=== PATIENT | male | born 1970 | race African-American/Black ===

== ENCOUNTER 2016-03-19 08:28 | Inpatient (IN) | payer OTHER ==
--- NOTE | 2016-03-19 12:44 | HP ---
CIWA Score - CIWA Score Nausea/Vomitin Muscle Tremors: 3 Anxiety: 3 Agitation: 3 Paroxysmal Sweats: 1-Minimal Palms Moist Orientation: 0-Oriented Tacttile Disturbances: 2-Mild Itch/Numbness/Burn Auditory Disturbances: 2-Mild Harshness/Frighten Visual Disturbances: 2-Mild Sensitivity Headache: 2-Mild CIWA-Ar Total Score: 21 Admission ROS BHS - HPI Chief Complaint: I NEED HELP TO STOP DRINKING ALCOHOL AND COCAINE,WITHDRAWAL SYMPTOM,LAST DETOX Allergies/Adverse Reactions: Allergies Allergy/AdvReac Type Severity Reaction Status Date / Time Sweet Potato Allergy Severe Hives Verified 03/19/16 11:27 No Known Drug Allergies Allergy Verified 03/19/16 11:27 squash Allergy Severe Hives Uncoded 03/19/16 11:27 History of Present Illness: I NEED HELP TO STOP DRINKING ALCOHOL AND COCAINE,WITHDRAWAL SYMPTOM,LAST DETOX [facility] 01/11/16 TO 01/14/16 REHAB FROM 01/23/16 TO 02/08/16 [facility] HAD PROBLEM WITH RIGHT EYE WITH RENESS FOR 2 DAYS HAD PROBLEM WITH RIGHT HARRIS [address] IN [facility] SCHIZOAFFECTIVE DISORDER NO MED HYPERTENSION HYPERCHOLESTROLEMIA NICOTINE DEPENDENCE LONGEST PERIOD OF SOBRIETY 5 YEARS Exam Limitations: No Limitations - Ebola screening Have you traveled outside of the country in the last 21 days: No Have you been sick,other than usual withdrawal symptoms: No - Review of Systems Constitutional: Loss of Appetite, Malaise, Night Sweats, Changes in sleep, Weakness, Unintentional Wgt. Loss EENT: reports: Nose Congestion, Other (RDNESS OF RIGHT EYE FOR 2 DAYS) Respiratory: reports: No Symptoms reported Cardiac: reports: No Symptoms Reported GI: reports: Diarrhea, Nausea, Vomiting, Abdominal cramping : reports: No Symptoms Reported Musculoskeletal: reports: Back Pain, Muscle Pain Integumentary: reports: Dryness Neuro: reports: Headache, Tremors Endocrine: reports: No Symptoms Reported Hematology: reports: No Symptoms Reported Psychiatric: reports: other (SCHIZOAFFECTIVE DISORDER) Patient History - Patient Medical History Hx Anemia: No Hx Asthma: Yes Hx Chronic Obstructive Pulmonary Disease (COPD): No Hx Cancer: No Hx Cardiac Disorders: No Hx Congestive Heart Failure: No Hx Hypertension: Yes (on meds.) Hx Hypercholesterolemia: Yes (ON MED) Hx Pacemaker: No HX Cerebrovascular Accident: No Hx Seizures: No Hx Dementia: No Hx Diabetes: No Hx Gastrointestinal Disorders: No Hx Liver Disease: No Hx Genitourinary Disorders: No Hx Sexually Transmitted Disorders: No Hx Renal Disease (ESRD): No Hx Thyroid Disease: No Hx Human Immunodeficiency Virus (HIV): No (LAST 01/23 NEGATIVE ) Hx Hepatitis C: No Hx Depression: Yes (NO MED) Hx Suicide Attempt: No Hx Bipolar Disorder: Yes (NO MED) Hx Schizophrenia: No Other Medical History: SCHIZOAFFECTIVE DISORDER - Patient Surgical History Past Surgical History: Yes Hx Neurologic Surgery: No Hx Cataract Extraction: No Hx Cardiac Surgery: No Hx Lung Surgery: No Hx Breast Surgery: No Hx Breast Biopsy: No Hx Abdominal Surgery: No Hx Appendectomy: No Hx Cholecystectomy: No Hx Genitourinary Surgery: No Hx Section: No Hx Orthopedic Surgery: Yes (left elbow and right wrist) Other Surgical History: sx to left elbow IN 1985,FX OF RIGHT WRIST WITH DEFORMITY Anesthesia Reaction: No - PPD History Previous Implant?: Yes Documented Results: Negative w/proof Implanted On Prior [facility] Admission?: Yes Date: 01/13/16 Results: 0 mm PPD to be Administered?: No - Smoking Cessation Smoking history: Current every day smoker Have you smoked in the past 12 months: Yes Aproximately how many cigarettes per day: 8 Cigars Per Day: 0 Hx Chewing Tobacco Use: No Initiated information on smoking cessation: Yes 'Breaking Loose' booklet given: 03/19/16 - Substance & Tx. History Hx Alcohol Use: Yes Hx Substance Use: Yes Substance Use Type: Alcohol, Cocaine Hx Substance Use Treatment: Yes ([facility] 01/11/16 TO 01/14/16) - Substances Abused Alcohol Route: Oral Frequency: Daily Amount used: 1 liter vodka Age of first use: 13 Date of Last Use: 03/19/16 Crack Route: Smoking Frequency: 1-2 times per week Amount used: $50 Age of first use: 13 Date of Last Use: 03/17/16 Family Disease History - Family Disease History Family Disease History: CA: Father (alcohol), Respiratory: Brother (asthma, drugs and alcohol), Sister, Daughter, Other: Father, Brother Admission Physical Exam BHS - Vital Signs Vital Signs: Vital Signs - 24 hr 03/19/16 10:49 Temperature 96.3 F L Pulse Rate 83 Respiratory 20 Rate Blood Pressure 147/92 - Physical General Appearance: Yes: Moderate Distress, Irritable, Sweating, Anxious HEENTM: Yes: Nasal Congestion, Rhinorrhea, Other (REDNESS OF RIGHT EYE , CONJUNCTIVITIS VISION [place], MOVEMENT OF EYE BALL NO LIMITATION) Respiratory: Yes: Within Normal Limits Neck: Yes: Within Normal Limits Breast: Yes: Within Normal Limits Cardiology: Yes: Within Normal Limits, Regular Rhythm, Regular Rate, S1, S2 Abdominal: Yes: Within Normal Limits, Normal Bowel Sounds, Non Tender, Flat, Soft Genitourinary: Yes: Within Normal Limits Back: Yes: Muscle Spasm Musculoskeletal: Yes: Back pain, Muscle Pain Extremities: Yes: Tremors, Other (DEORMITY OF RIGHT WRIST) 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, Fully Oriented, Alert, Motor Strength 5/5 Integumentary: Yes: Dry Lymphatic: Yes: Within Normal Limits - Diagnostic (1) Alcohol dependence with uncomplicated withdrawal Current Visit: No Status: Acute (2) Cocaine dependence, uncomplicated Current Visit: No Status: Acute (3) Nicotine dependence Current Visit: No Status: Acute Qualifiers: Nicotine product type: cigarettes Substance use status: uncomplicated Qualified Code(s): F17.210 - Nicotine dependence, cigarettes, uncomplicated (4) Asthma Current Visit: No Status: Chronic (5) Essential hypertension Current Visit: No Status: Chronic (6) Hypercholesterolemia Current Visit: No Status: Chronic (7) Schizoaffective disorder Current Visit: No Status: Chronic Qualifiers: Schizoaffective disorder type: bipolar Qualified Code(s): F25.0 - Schizoaffective disorder, bipolar type (8) Deformity of right wrist Current Visit: Yes Status: Acute (9) Conjunctivitis of right eye Current Visit: Yes Status: Acute Cleared for Admission [facility] - Detox or Rehab [facility] Level of Care: Medically Managed Detox Regimen/Protocol: Librium [facility] Breath Alcohol Content Breath Alcohol Content: 0.037 Urine Drug Screen - Results Drug Screen Negative: No Urine Drug Screen Results: THC-Marijuana, [place]-Cocaine, BZO-Benzodiazepines
[2016-03-19] MEDS ORDERED: MENTHOL/PHENOL 1 EACH UD MM PRN (13:07)
[2016-03-19] MEDS ORDERED: MAGNESIUM HYDROX 2400MG/30ML ORAL SUSPENSION 30 ML CUP PO PRN (13:07)
[2016-03-19] MEDS ORDERED: IBUPROFEN 400 MG TABLET (FP) PO PRN (13:07)
[2016-03-19] MEDS ORDERED: hydrOXYzine PAMOATE 50 MG CAPSULE (FP) PO PRN (13:07)
[2016-03-19] MEDS ORDERED: MAGNESIUM CITRATE 300 ML BOTTLE PO PRN (13:07)
[2016-03-19] MEDS ORDERED: P-EPHED 60MG/TRIPROLIDI 2.5MG TABLET PO PRN (13:07)
[2016-03-19] MEDS ORDERED: LOPERAMIDE HCL 2 MG CAPSULE PO PRN (13:07)
[2016-03-19] MEDS ORDERED: MAG HYDROX/AL HYDROX/SIMETH 30 ML UNIT-DOSE CUP PO PRN (13:07)
[2016-03-19] MEDS ORDERED: guaiFENesin/D-METHORPHAN HB 10 ML UNIT-DOSE CUPS PO PRN (13:07)
[2016-03-19] MEDS ORDERED: ACETAMINOPHEN 325 MG TABLET (FP) PO PRN (13:07)
[2016-03-19] MEDS ORDERED: diphenhydrAMINE HCL 50 MG CAPSULE PO PRN (13:07)
[2016-03-19] MEDS ORDERED: chlordiazePOXIDE HCL 25 MG CAPSULE PO PRN (13:07)
[2016-03-19] MEDS ORDERED: ALBUTEROL SO4 6.7 GM HFA INHALER IH PRN (13:10)
[2016-03-19] MEDS ORDERED: chlordiazePOXIDE HCL 25 MG CAPSULE PO ONE (13:45)
[2016-03-19] MEDS: NEOMYCIN/POLYMYX/HC OPHTHALMIC SUSPENSION 7.5 ML BOTTLE OD SCH ×3 (14:03→22:13)
[2016-03-19 15:34] LABS: URINE APPEARANCE CLEAR; URINE BILIRUBIN NEGATIVE (NEGATIVE); URINE BLOOD NEGATIVE (NEGATIVE); URINE COLOR YELLOW; URINE GLUCOSE (UA) NEGATIVE (NEGATIVE); URINE KETONE TRACE (NEGATIVE); URINE LEUK ESTERASE NEGATIVE (NEGATIVE); URINE NITRITE NEGATIVE (NEGATIVE); URINE PROTEIN NEGATIVE (NEGATIVE); URINE UROBILINOGEN NEGATIVE E.U./dl (0.2-1.0)
--- NOTE | 2016-03-19 16:03 | CONSULT ---
[facility] Psychiatric Consult - Data Date of interview: 03/19/16 Admission source: [facility] Identifying data: This is 46 years old female with history of Schizoaffective disorder,, intoxicated with Crack, Alcohol and Cannabis, Benzo and Nicotine Substance Abuse History: - Smoking Cessation. Smoking history: Current every day smoker. Have you smoked in the past 12 months: Yes. Aproximately how many cigarettes per day: 8. Cigars Per Day: 0. Hx Chewing Tobacco Use: No. Initiated information on smoking cessation: Yes. 'Breaking Loose' booklet given : 03/19/16. - Substance & Tx. History. Hx Alcohol Use: Yes. Hx Substance Use : Yes. Substance Use Type: Alcohol, Cocaine. Hx Substance Use Treatment: Yes ( [facility] 01/11/16 TO 01/14/16). - Substances Abused. Alcohol. Route: Oral. Frequency: Daily. Amount used: 1 liter vodka. Age of first use: 13. Date of Last Use: 03/19/16. Crack. Route: Smoking. Frequency: 1-2 times per week. Amount used: $50. Age of first use: 13. Date of Last Use: 03/17/16 Medical History: Suncope history, Sepsis history, Anemia history, HTN, Hypercholesaterolemia Psychiatric History: Patient reports to carry Schizoaffective disorder, Bipolar type, , reports taking prior to admission: Zyoprexa 10mg po qhs. Reports unclear past psychiatric hospitalization history Physical/Sexual Abuse/Trauma History: Denies Additional Comment: Zyoprexa 10mg po qhs Mental Status Exam - Mental Status Exam Alert and Oriented to: Person Cognitive Function: Fair Patient Appearance: Unkempt Mood: Sad Affect: Flat Patient Behavior: Sedated Speech Pattern: Delayed Voice Loudness: Mildly Soft/Quiet Thought Process: Circumstantial Thought Disorder: Being Controlled Hallucinations: Denies Suicidal Ideation: Denies Homicidal Ideation: Denies Insight/Judgement: Fair Sleep: Difficulty falling asleep Appetite: Weight gain Muscle strength/Tone: Mild Hypotonicity Gait/Station: Shuffling Additional Comments: Zyoprexa 10mg po qhs Psychiatric Findings - Problem List ([place] 1, 2,3) (1) Alcohol dependence Current Visit: No Status: Acute (2) Alcohol dependence with uncomplicated withdrawal Current Visit: No Status: Acute (3) Cocaine dependence, uncomplicated Current Visit: No Status: Acute (4) Nicotine dependence Current Visit: No Status: Acute Qualifiers: Nicotine product type: cigarettes Substance use status: uncomplicated Qualified Code(s): F17.210 - Nicotine dependence, cigarettes, uncomplicated (5) Opioid dependence with withdrawal Current Visit: No Status: Acute (6) Schizoaffective disorder, bipolar type Current Visit: No Status: Acute (7) Schizoaffective disorder Current Visit: No Status: Chronic Qualifiers: Schizoaffective disorder type: bipolar Qualified Code(s): F25.0 - Schizoaffective disorder, bipolar type
[2016-03-19] MEDS: chlordiazePOXIDE HCL 25 MG CAPSULE PO SCH ×2 (18:21→22:13)
[2016-03-19] MEDS: THIAMINE HCL 100 MG TABLET (FP) PO SCH (22:13)
[2016-03-19] MEDS: ROSUVASTATIN CA 5 MG TABLET (FP) PO SCH (22:13)
[2016-03-19] MEDS: OLANZapine 10 MG TABLET PO SCH (22:13)
[2016-03-20] MEDS: chlordiazePOXIDE HCL 25 MG CAPSULE PO SCH ×4 (05:54→22:13)
[2016-03-20] MEDS: NEOMYCIN/POLYMYX/HC OPHTHALMIC SUSPENSION 7.5 ML BOTTLE OD SCH ×5 (07:24→22:25)
[2016-03-20 10:05] LABS: MCH 24.1 pg (25.7-33.7); MCHC 32.4 g/dl (32.0-35.9); MEAN CELL VOLUME 74.2 fl (80-96); MEAN PLT VOLUME 6.9 fl (7.5-11.1); PLATELET COUNT 477 K/MM3 (134-434); RDW 18.2 % (11.9-15.9); WHITE BLOOD COUNT 6.2 K/mm3 (4.0-10.0)
[2016-03-20] MEDS: FLUTICASONE PROP 0.05% 16 GM NASAL SPRAY NS SCH (10:08)
[2016-03-20] MEDS: ATENOLOL 25 MG TABLET (FP) PO SCH (10:08)
[2016-03-20] MEDS: PRENATAL VITAMINS W/ FOLIC ACID TABLET (FP) PO SCH (10:08)
[2016-03-20] MEDS: amLODIPine BESYLATE 10 MG TABLET (FP) PO SCH (10:08)
[2016-03-20] MEDS: ACLIDINIUM BROMIDE 400 MCG/INH AERO.POWD IH SCH ×3 (10:09→22:26)
[2016-03-20 10:11] LABS: ALBUMIN 3.7 g/dl (3.4-5.0); ANION GAP 10 (8-16); CALCIUM 8.9 mg/dL (8.5-10.1); CO2 26 mmol/L (21-32); GLUCOSE,RANDOM 110 mg/dL (74-106)
[2016-03-20 10:16] LABS: ALK PHOS 74 U/L (45-117); BILIRUBIN,TOTAL 0.3 mg/dL (0.2-1.0); CREATININE 0.8 mg/dL (0.7-1.3); SGOT/AST 29 U/L (15-37); SGPT/ALT 25 U/L (12-78); TOT PROT 7.5 g/dl (6.4-8.2)
--- NOTE | 2016-03-20 10:30 | PN ---
S CIWA - CIWA Score Nausea/Vomitin-Mild Nausea/No Vomiting Muscle Tremors: 4-Moderate,w/Arms Extend Anxiety: 3 Agitation: 3 Paroxysmal Sweats: 3 Orientation: 0-Oriented Tacttile Disturbances: 0-None Auditory Disturbances: 0-None Visual Disturbances: 0-None Headache: 0-None Present CIWA-Ar Total Score: 14 BHS Progress Note (SOAP) Subjective: anxiety,tremors,sweating,interrupted sleep,restless Objective: 03/20/16 10:28 Vital Signs - 8 hr 03/20/16 03/20/16 03/20/16 03:30 06:23 10:07 Temperature 96.3 F L 98.2 F Pulse Rate 82 87 Respiratory 18 18 18 Rate Blood Pressure 142/97 141/94 Laboratory Tests 03/19/16 03/20/16 03/20/16 13:10 06:30 06:30 WBC 6.2 D RBC 4.59 Hgb 11.1 L Hct 34.1 L MCV 74.2 L MCHC 32.4 RDW 18.2 H D Plt Count 477 H D MPV 6.9 L Sodium 143 Potassium 3.5 D Chloride 107 Carbon Dioxide 26 Anion Gap 10 BUN 5 L D Creatinine 0.8 D Creat Clearance w eGFR > 60 Random Glucose 110 H Calcium 8.9 Total Bilirubin 0.3 D AST 29 ALT 25 D Alkaline Phosphatase 74 D Total Protein 7.5 Albumin 3.7 Urine Color Yellow Urine Appearance Clear Urine pH 6.0 Ur Specific [place] 1.027 Urine Protein Negative Urine Glucose (UA) Negative Urine Ketones Trace H Urine Blood Negative Urine Nitrite Negative Urine Bilirubin Negative Urine Urobilinogen Negative Ur Leukocyte Esterase Negative labs noted Assessment: 03/20/16 10:29 withdrawal sx. Plan: continue detox
--- NOTE | 2016-03-20 11:13 | EKG ---
Test Reason : Blood Pressure : / mmHG Vent. Rate : 077 BPM Atrial Rate : 077 BPM P-R Int : 132 ms QRS Dur : 094 ms QT Int : 426 ms P-R-T Axes : 073 062 057 degrees QTc Int : 482 ms NORMAL SINUS RHYTHM PROLONGED QT ABNORMAL ECG WHEN COMPARED WITH ECG OF 26-JAN-2016 16:08, QT HAS LENGTHENED Confirmed by LIBIA MURCIA MD ([id number]) on 03/20/2016 11:13:21 AM Referred By: Pepe Vega Confirmed By:LIBIA MURCIA MD
[2016-03-20] MEDS: NICOTINE POLACRILEX 2 MG GUM BC PRN (15:31)
[2016-03-20] MEDS: OLANZapine 10 MG TABLET PO SCH (22:13)
[2016-03-20] MEDS: ROSUVASTATIN CA 5 MG TABLET (FP) PO SCH (22:13)
[2016-03-20] MEDS: THIAMINE HCL 100 MG TABLET (FP) PO SCH (22:13)
[2016-03-21] MEDS: chlordiazePOXIDE HCL 25 MG CAPSULE PO SCH ×2 (06:04→10:17)
[2016-03-21] MEDS: NEOMYCIN/POLYMYX/HC OPHTHALMIC SUSPENSION 7.5 ML BOTTLE OD SCH ×5 (06:05→22:43)
[2016-03-21] MEDS: NICOTINE POLACRILEX 2 MG GUM BC PRN ×4 (06:06→17:45)
--- NOTE | 2016-03-21 10:05 | PN ---
[facility] CIWA - CIWA Score Nausea/Vomitin-Mild Nausea/No Vomiting Muscle Tremors: 4-Moderate,w/Arms Extend Anxiety: 4-Mod. Anxious/Guarded Agitation: 4-Moderately Restless Paroxysmal Sweats: No Perspiration Orientation: 0-Oriented Tacttile Disturbances: 2-Mild Itch/Numbness/Burn Auditory Disturbances: 0-None Visual Disturbances: 0-None Headache: 3-Moderate CIWA-Ar Total Score: 18 BHS Progress Note (SOAP) Subjective: Restlessness, interrupted sleep, anxiety, tremors Objective: Vital Signs Temperature 98.1 F 03/21/16 09:52 Pulse Rate 75 03/21/16 09:52 Respiratory Rate 18 03/21/16 09:52 Blood Pressure 131/84 03/21/16 09:52 O2 Sat by Pulse Oximetry (%) Laboratory Last Values WBC 6.2 K/mm3 (4.0-10.0) D 03/20/16 06:30 RBC 4.59 M/mm3 (4.00-5.60) 03/20/16 06:30 Hgb 11.1 GM/dL (11.7-16.9) L 03/20/16 06:30 Hct 34.1 % (35.4-49) L 03/20/16 06:30 MCV 74.2 fl (80-96) L 03/20/16 06:30 MCHC 32.4 g/dl (32.0-35.9) 03/20/16 06:30 RDW 18.2 % (11.9-15.9) H D 03/20/16 06:30 Plt Count 477 K/MM3 (134-434) H D 03/20/16 06:30 MPV 6.9 fl (7.5-11.1) L 03/20/16 06:30 Sodium 143 mmol/L (136-145) 03/20/16 06:30 Potassium 3.5 mmol/L (3.5-5.1) D 03/20/16 06:30 Chloride 107 mmol/L (98-107) 03/20/16 06:30 Carbon Dioxide 26 mmol/L (21-32) 03/20/16 06:30 Anion Gap 10 (8-16) 03/20/16 06:30 BUN 5 mg/dL (7-18) L D 03/20/16 06:30 Creatinine 0.8 mg/dL (0.7-1.3) D 03/20/16 06:30 Creat Clearance w eGFR > 60 (>60) 03/20/16 06:30 Random Glucose 110 mg/dL (74-106) H 03/20/16 06:30 Calcium 8.9 mg/dL (8.5-10.1) 03/20/16 06:30 Total Bilirubin 0.3 mg/dL (0.2-1.0) D 03/20/16 06:30 AST 29 U/L (15-37) 03/20/16 06:30 ALT 25 U/L (12-78) D 03/20/16 06:30 Alkaline Phosphatase 74 U/L (45-117) D 03/20/16 06:30 Total Protein 7.5 g/dl (6.4-8.2) 03/20/16 06:30 Albumin 3.7 g/dl (3.4-5.0) 03/20/16 06:30 Urine Color Yellow 03/19/16 13:10 Urine Appearance Clear 03/19/16 13:10 Urine pH 6.0 (5.0-8.0) 03/19/16 13:10 Ur Specific [place] 1.027 (1.001-1.035) 03/19/16 13:10 Urine Protein Negative (NEGATIVE) 03/19/16 13:10 Urine Glucose (UA) Negative (NEGATIVE) 03/19/16 13:10 Urine Ketones Trace (NEGATIVE) H 03/19/16 13:10 Urine Blood Negative (NEGATIVE) 03/19/16 13:10 Urine Nitrite Negative (NEGATIVE) 03/19/16 13:10 Urine Bilirubin Negative (NEGATIVE) 03/19/16 13:10 Urine Urobilinogen Negative E.U./dl (0.2-1.0) 03/19/16 13:10 Ur Leukocyte Esterase Negative (NEGATIVE) 03/19/16 13:10 RPR Titer Nonreactive (NONREACTIVE) 03/20/16 06:30 labs noted Assessment: 03/21/16 10:04 withdrawal symptoms Plan: Patient encouraged to request prn medications to alleviate symptoms. Satisfactory Course, Continue Detox
[2016-03-21] MEDS: FLUTICASONE PROP 0.05% 16 GM NASAL SPRAY NS SCH (10:17)
[2016-03-21] MEDS: ATENOLOL 25 MG TABLET (FP) PO SCH (10:17)
[2016-03-21] MEDS: amLODIPine BESYLATE 10 MG TABLET (FP) PO SCH (10:17)
[2016-03-21] MEDS: ACLIDINIUM BROMIDE 400 MCG/INH AERO.POWD IH SCH ×2 (10:17→22:41)
[2016-03-21] MEDS: PRENATAL VITAMINS W/ FOLIC ACID TABLET (FP) PO SCH (10:17)
[2016-03-21] MEDS: chlordiazePOXIDE 5 MG CAPSULE PO SCH ×2 (17:18→22:41)
[2016-03-21] MEDS: THIAMINE HCL 100 MG TABLET (FP) PO SCH (22:41)
[2016-03-21] MEDS: ROSUVASTATIN CA 5 MG TABLET (FP) PO SCH (22:41)
[2016-03-21] MEDS: OLANZapine 10 MG TABLET PO SCH (22:41)
[2016-03-22] MEDS: chlordiazePOXIDE 5 MG CAPSULE PO SCH ×2 (05:39→10:09)
[2016-03-22] MEDS: NEOMYCIN/POLYMYX/HC OPHTHALMIC SUSPENSION 7.5 ML BOTTLE OD SCH ×2 (05:40→10:09)
[2016-03-22 09:23] VITALS: BP 129/85; PULSE 85; TEMP 97.4
[2016-03-22] MEDS: ATENOLOL 25 MG TABLET (FP) PO SCH (10:09)
[2016-03-22] MEDS: PRENATAL VITAMINS W/ FOLIC ACID TABLET (FP) PO SCH (10:09)
[2016-03-22] MEDS: NICOTINE POLACRILEX 2 MG GUM BC PRN (10:09)
[2016-03-22] MEDS: FLUTICASONE PROP 0.05% 16 GM NASAL SPRAY NS SCH (10:09)
[2016-03-22] MEDS: amLODIPine BESYLATE 10 MG TABLET (FP) PO SCH (10:09)
[2016-03-22] MEDS: ACLIDINIUM BROMIDE 400 MCG/INH AERO.POWD IH SCH (10:09)
--- NOTE | 2016-03-22 15:34 | DS ---
[facility] Detox Discharge Summary Admission Date: 03/19/16 Discharge Date: 03/22/16 - History Present History: Alcohol Dependence Pertinent Past History: Asthma HTN HLD - Physical Exam Results Vital Signs: Vital Signs Temperature 97.4 F L 03/22/16 09:22 Pulse Rate 85 03/22/16 09:22 Respiratory Rate 18 03/22/16 09:22 Blood Pressure 129/85 03/22/16 09:22 O2 Sat by Pulse Oximetry (%) Pertinent Admission Physical Exam Findings: Withdrawal symptoms Laboratory Tests 03/19/16 03/20/16 03/20/16 13:10 06:30 06:30 WBC 6.2 D RBC 4.59 Hgb 11.1 L Hct 34.1 L MCV 74.2 L MCHC 32.4 RDW 18.2 H D Plt Count 477 H D MPV 6.9 L Sodium 143 Potassium 3.5 D Chloride 107 Carbon Dioxide 26 Anion Gap 10 BUN 5 L D Creatinine 0.8 D Creat Clearance w eGFR > 60 Random Glucose 110 H Calcium 8.9 Total Bilirubin 0.3 D AST 29 ALT 25 D Alkaline Phosphatase 74 D Total Protein 7.5 Albumin 3.7 Urine Color Yellow Urine Appearance Clear Urine pH 6.0 Ur Specific [place] 1.027 Urine Protein Negative Urine Glucose (UA) Negative Urine Ketones Trace H Urine Blood Negative Urine Nitrite Negative Urine Bilirubin Negative Urine Urobilinogen Negative Ur Leukocyte Esterase Negative RPR Titer 03/20/16 06:30 WBC RBC Hgb Hct MCV MCHC RDW Plt Count MPV Sodium Potassium Chloride Carbon Dioxide Anion Gap BUN Creatinine Creat Clearance w eGFR Random Glucose Calcium Total Bilirubin AST ALT Alkaline Phosphatase Total Protein Albumin Urine Color Urine Appearance Urine pH Ur Specific [place] Urine Protein Urine Glucose (UA) Urine Ketones Urine Blood Urine Nitrite Urine Bilirubin Urine Urobilinogen Ur Leukocyte Esterase RPR Titer Nonreactive Labs noted - Medication Discharge Medications: Ambulatory Orders Albuterol Sulfate Inhaler - [Ventolin HFA Inhaler -] 2 inh IH Q4H PRN #1 inhaler 02/08/16 Amlodipine Besylate [Norvasc -] 10 mg PO DAILY #30 tablet 02/08/16 Atenolol [Tenormin -] 25 mg PO DAILY #30 tablet 02/08/16 Fluticasone Prop 0.05% Nasal [Flonase -] 1 spray NS DAILY #1 bot 02/08/16 Olanzapine [Zyprexa -] 15 mg PO HS #30 tablet 02/08/16 Rosuvastatin [Crestor -] 5 mg PO HS #30 tablet 02/08/16 Tiotropium [place] [Spiriva] 18 mcg IH AM #1 inh 02/08/16 Olanzapine [ZyPREXA -] 10 mg PO HS #30 tablet 03/19/16 - Diagnosis (1) Alcohol dependence with uncomplicated withdrawal Status: Acute (2) Nicotine dependence Status: Chronic Qualifiers: Nicotine product type: cigarettes Substance use status: uncomplicated Qualified Code(s): F17.210 - Nicotine dependence, cigarettes, uncomplicated (3) Schizoaffective disorder, bipolar type Status: Chronic (4) Asthma Status: Chronic (5) Essential hypertension Status: Chronic (6) Hypercholesterolemia Status: Chronic - AMA Did Patient Leave Against Medical Advice: Yes
[2016-03-22] MEDS ORDERED: chlordiazePOXIDE HCL 10 MG CAPSULE PO SCH (17:00)
== END 2016-03-22 12:35 | disposition left against medical advice (07) | DRG 894 ==
LOC: YASAS 08:28 → Y3N 11:53
PROVIDERS: ADMIT Internal Medicine; ATTEND Internal Medicine
PROC: HZ2ZZZZ Detoxification Services for Substance Abuse Treatment (ICD-10-PCS; principal; 2016-03-22)
DX: F11.23 Opioid dependence with withdrawal (principal); F14.20 Cocaine dependence, uncomplicated; F10.230 Alcohol dependence with withdrawal, uncomplicated; F17.210 Nicotine dependence, cigarettes, uncomplicated; F25.0 Schizoaffective disorder, bipolar type; I10 Essential (primary) hypertension; E78.00 Pure hypercholesterolemia, unspecified; J45.909 Unspecified asthma, uncomplicated
CPT/HCPCS: 36415; 80053; 81003; 85027; 86593; 93005; 93010

== ENCOUNTER 2016-05-24 13:23 | Inpatient (IN) | payer OTHER ==
[2016-05-24 13:40] VITALS: BMI 24.4
--- NOTE | 2016-05-24 17:20 | HP ---
CIWA Score - CIWA Score Nausea/Vomitin Muscle Tremors: 3 Anxiety: 3 Agitation: 3 Paroxysmal Sweats: 2 Orientation: 0-Oriented Tacttile Disturbances: 2-Mild Itch/Numbness/Burn Auditory Disturbances: 2-Mild Harshness/Frighten Visual Disturbances: 2-Mild Sensitivity Headache: 2-Mild CIWA-Ar Total Score: 22 Admission ROS BHS - HPI Chief Complaint: i need help help to stop using alcohol,cocaine dependence,withdrawal symptom, last detox [facility] 03/19/16 to 03/22/16 syncope alcohol related nicotine dependence weight loss longest period of sobriety 6 years Allergies/Adverse Reactions: Allergies Allergy/AdvReac Type Severity Reaction Status Date / Time Sweet Potato Allergy Severe Hives Verified 03/19/16 11:27 No Known Drug Allergies Allergy Verified 03/19/16 11:27 squash Allergy Severe Hives Uncoded 03/19/16 11:27 History of Present Illness: this 46 years old male with alcohol and cocaine dependence for detox as mentioned above Exam Limitations: No Limitations - Ebola screening Have you traveled outside of the country in the last 21 days: No Have you had contact with anyone from an Ebola affected area: No Do you have a fever: No - Review of Systems Constitutional: Loss of Appetite, Malaise, Night Sweats, Changes in sleep, Weakness, Unintentional Wgt. Loss EENT: reports: Nose Congestion Respiratory: reports: No Symptoms reported, Other (asthma) Cardiac: reports: No Symptoms Reported GI: reports: Diarrhea, Nausea, Vomiting, Abdominal cramping Musculoskeletal: reports: Back Pain, Muscle Pain Integumentary: reports: Dryness Neuro: reports: Headache, Tremors Endocrine: reports: No Symptoms Reported Hematology: reports: No Symptoms Reported Psychiatric: reports: No Sypmtoms Reported, Judgement Intact, Mood/Affect Appropiate Other Systems: Reviewed and Negative Patient History - Patient Medical History Hx Anemia: No Hx Asthma: Yes (on albuterol inhaler) Hx Chronic Obstructive Pulmonary Disease (COPD): No Hx Cancer: No Hx Cardiac Disorders: No Hx Congestive Heart Failure: No Hx Hypertension: Yes (on meds.) Hx Hypercholesterolemia: Yes (no med) Hx Pacemaker: No HX Cerebrovascular Accident: No Hx Seizures: No Hx Dementia: No Hx Diabetes: No Hx Gastrointestinal Disorders: No Hx Liver Disease: No Hx Genitourinary Disorders: No Hx Sexually Transmitted Disorders: No Hx Renal Disease (ESRD): No Hx Thyroid Disease: No Hx Human Immunodeficiency Virus (HIV): No (last 03/27 negaive [facility]) Hx Hepatitis C: No Hx Depression: Yes (NO MED) Hx Suicide Attempt: No Hx Bipolar Disorder: Yes (NO MED) Hx Schizophrenia: No Other Medical History: no suicidal,no homicidal - Patient Surgical History Past Surgical History: Yes Hx Neurologic Surgery: No Hx Cataract Extraction: No Hx Cardiac Surgery: No Hx Lung Surgery: No Hx Breast Surgery: No Hx Breast Biopsy: No Hx Abdominal Surgery: No Hx Appendectomy: No Hx Cholecystectomy: No Hx Genitourinary Surgery: No Hx Section: No Hx Orthopedic Surgery: Yes (left elbow and right wrist) Other Surgical History: sx to left elbow IN 1985,FX OF RIGHT WRIST WITH DEFORMITY 2008 Anesthesia Reaction: No - PPD History Previous Implant?: Yes Documented Results: Negative w/proof Implanted On Prior [facility] Admission?: Yes Date: 01/13/16 Results: 0 mm PPD to be Administered?: No - Smoking Cessation Smoking history: Current every day smoker Have you smoked in the past 12 months: Yes Aproximately how many cigarettes per day: 8 Cigars Per Day: 0 Hx Chewing Tobacco Use: No Initiated information on smoking cessation: Yes 'Breaking Loose' booklet given: 05/24/16 - Substance & Tx. History Hx Alcohol Use: Yes Hx Substance Use: Yes Substance Use Type: Alcohol, Cocaine Hx Substance Use Treatment: Yes ([facility] 03/19/16 to 03/22/16) - Substances Abused Alcohol Route: Oral Frequency: Daily Amount used: 1 gallon of vodka/2 of 40 ozs of beer Age of first use: 13 Date of Last Use: 05/24/16 Cocaine Route: Smoking Frequency: Daily Age of first use: 16 Date of Last Use: 05/23/16 Family Disease History - Family Disease History Family Disease History: CA: Father (alcohol), Respiratory: Brother (asthma, drugs and alcohol), Sister, Daughter, Other: Father, Brother Admission Physical Exam BHS - Vital Signs Vital Signs: Vital Signs - 24 hr 05/24/16 13:38 Temperature 97.9 F Pulse Rate 88 Respiratory 20 Rate Blood Pressure 128/91 - Physical General Appearance: Yes: Moderate Distress, Tremorous, Irritable, Sweating, Anxious HEENTM: Yes: Hearing grossly Normal, Normal ENT Inspection, AMALIA, Pharynx Normal Respiratory: Yes: Lungs Clear, Normal Breath Sounds, No Respiratory Distress Neck: Yes: Within Normal Limits Breast: Yes: Within Normal Limits Cardiology: Yes: Within Normal Limits, Regular Rhythm, Regular Rate Abdominal: Yes: Within Normal Limits, Normal Bowel Sounds, Non Tender, Flat, Soft Genitourinary: Yes: Within Normal Limits Back: Yes: Within Normal Limits, Normal Inspection, Muscle Spasm Musculoskeletal: Yes: Within Normal Limits, full range of Motion, Back pain, Muscle Pain Extremities: Yes: Normal Range of Motion, Tremors 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, Fully Oriented, Alert, Motor Strength 5/5 Integumentary: Yes: Dry Lymphatic: Yes: Within Normal Limits - Diagnostic (1) Syncope Current Visit: No Status: Active (2) Alcohol dependence with uncomplicated withdrawal Current Visit: No Status: Acute (3) Cocaine dependence, uncomplicated Current Visit: No Status: Acute (4) Deformity of right wrist Current Visit: No Status: Acute (5) Asthma Current Visit: No Status: Chronic (6) Essential hypertension Current Visit: No Status: Chronic (7) Hypercholesterolemia Current Visit: No Status: Chronic (8) Nicotine dependence Current Visit: No Status: Chronic Qualifiers: Nicotine product type: cigarettes Substance use status: uncomplicated Qualified Code(s): F17.210 - Nicotine dependence, cigarettes, uncomplicated (9) Bipolar disorder Current Visit: No Status: Suspected Cleared for Admission [facility] - Detox or Rehab [facility] Level of Care: Medically Managed Detox Regimen/Protocol: Librium [facility] Breath Alcohol Content Breath Alcohol Content: 0.085 Urine Drug Screen - Results Drug Screen Negative: No Urine Drug Screen Results: [place]-Cocaine, BZO-Benzodiazepines
[2016-05-24] MEDS ORDERED: guaiFENesin/D-METHORPHAN HB 10 ML UNIT-DOSE CUPS PO PRN (17:30)
[2016-05-24] MEDS ORDERED: chlordiazePOXIDE HCL 25 MG CAPSULE PO ONE (17:30)
[2016-05-24] MEDS ORDERED: P-EPHED 60MG/TRIPROLIDI 2.5MG TABLET PO PRN (17:30)
[2016-05-24] MEDS ORDERED: IBUPROFEN 400 MG TABLET (FP) PO PRN (17:30)
[2016-05-24] MEDS ORDERED: MENTHOL/PHENOL 1 EACH UD MM PRN (17:30)
[2016-05-24] MEDS ORDERED: MAGNESIUM CITRATE 300 ML BOTTLE PO PRN (17:30)
[2016-05-24] MEDS ORDERED: LOPERAMIDE HCL 2 MG CAPSULE PO PRN (17:30)
[2016-05-24] MEDS ORDERED: MAGNESIUM HYDROX 2400MG/30ML ORAL SUSPENSION 30 ML CUP PO PRN (17:30)
[2016-05-24] MEDS ORDERED: hydrOXYzine PAMOATE 50 MG CAPSULE (FP) PO PRN (17:30)
[2016-05-24] MEDS ORDERED: ACETAMINOPHEN 325 MG TABLET (FP) PO PRN (17:30)
[2016-05-24] MEDS ORDERED: chlordiazePOXIDE HCL 25 MG CAPSULE PO PRN (17:30)
[2016-05-24] MEDS ORDERED: ALBUTEROL SO4 6.7 GM HFA INHALER IH PRN (17:34)
[2016-05-24] MEDS: chlordiazePOXIDE HCL 25 MG CAPSULE PO SCH (22:46)
[2016-05-24] MEDS: THIAMINE HCL 100 MG TABLET (FP) PO SCH (22:47)
[2016-05-25] MEDS: chlordiazePOXIDE HCL 25 MG CAPSULE PO SCH ×4 (05:50→22:45)
[2016-05-25] MEDS: NICOTINE POLACRILEX 2 MG GUM BC PRN ×2 (05:54→17:31)
--- NOTE | 2016-05-25 08:42 | EKG ---
Test Reason : Blood Pressure : / mmHG Vent. Rate : 086 BPM Atrial Rate : 086 BPM P-R Int : 134 ms QRS Dur : 098 ms QT Int : 382 ms P-R-T Axes : 074 065 075 degrees QTc Int : 457 ms NORMAL SINUS RHYTHM NORMAL ECG WHEN COMPARED WITH ECG OF 19-MAR-2016 13:54, NO SIGNIFICANT CHANGE WAS FOUND Confirmed by BLANCA BELLE MD ([id number]) on 05/25/2016 8:42:23 AM Referred By: Confirmed By:BLANCA BELLE MD
[2016-05-25 10:12] LABS: MCH 24.2 pg (25.7-33.7); MCHC 32.3 g/dl (32.0-35.9); MEAN CELL VOLUME 74.8 fl (80-96); MEAN PLT VOLUME 7.3 fl (7.5-11.1); PLATELET COUNT 274 K/MM3 (134-434); RDW 16.8 % (11.9-15.9); WHITE BLOOD COUNT 4.7 K/mm3 (4.0-10.0)
--- NOTE | 2016-05-25 10:22 | PN ---
S CIWA - CIWA Score Nausea/Vomitin Muscle Tremors: 3 Anxiety: 3 Agitation: 3 Paroxysmal Sweats: 1-Minimal Palms Moist Orientation: 0-Oriented Tacttile Disturbances: 1-Very Mild Itch/Numbness Auditory Disturbances: 1-Very Mild Visual Disturbances: 1-Very Mild Sensitivity Headache: 2-Mild CIWA-Ar Total Score: 18 BHS Progress Note (SOAP) Subjective: ALERT,IRRITABLE,ANXIOUS,INTERRUPTED SLEEP,TREMOR,PAIN IN THE BODY Objective: 05/25/16 10:21 Vital Signs Temperature 97.2 F L 05/25/16 06:00 Pulse Rate 73 05/25/16 06:00 Respiratory Rate 18 05/25/16 06:00 Blood Pressure 131/89 05/25/16 06:00 O2 Sat by Pulse Oximetry (%) EKG NSR,NORMAL ECG Laboratory Last Values WBC 4.7 K/mm3 (4.0-10.0) 05/25/16 07:00 RBC 5.17 M/mm3 (4.00-5.60) 05/25/16 07:00 Hgb 12.5 GM/dL (11.7-16.9) D 05/25/16 07:00 Hct 38.7 % (35.4-49) 05/25/16 07:00 MCV 74.8 fl (80-96) L 05/25/16 07:00 MCHC 32.3 g/dl (32.0-35.9) 05/25/16 07:00 RDW 16.8 % (11.9-15.9) H 05/25/16 07:00 Plt Count 274 K/MM3 (134-434) D 05/25/16 07:00 MPV 7.3 fl (7.5-11.1) L 05/25/16 07:00 LABS PENDING Assessment: 05/25/16 10:22 WITHDRAWAL SYMPTOM Plan: CONTINUE DETOX
[2016-05-25] MEDS: PRENATAL VITAMINS W/ FOLIC ACID TABLET (FP) PO SCH (10:25)
[2016-05-25] MEDS: amLODIPine BESYLATE 10 MG TABLET (FP) PO SCH (10:25)
[2016-05-25 10:35] LABS: ALBUMIN 3.5 g/dl (3.4-5.0); ALK PHOS 67 U/L (45-117); ANION GAP 8 (8-16); BILIRUBIN,TOTAL 0.8 mg/dL (0.2-1.0); CALCIUM 8.5 mg/dL (8.5-10.1); CO2 26 mmol/L (21-32); CREATININE 0.8 mg/dL (0.7-1.3); GLUCOSE,RANDOM 80 mg/dL (74-106); SGOT/AST 37 U/L (15-37); SGPT/ALT 37 U/L (12-78); TOT PROT 6.4 g/dl (6.4-8.2)
--- NOTE | 2016-05-25 10:35 | PN ---
[facility] CIWA - CIWA Score Nausea/Vomitin Muscle Tremors: 3 Anxiety: 3 Agitation: 2 Paroxysmal Sweats: 1-Minimal Palms Moist Orientation: 0-Oriented Tacttile Disturbances: 1-Very Mild Itch/Numbness Auditory Disturbances: 1-Very Mild Visual Disturbances: 1-Very Mild Sensitivity Headache: 2-Mild CIWA-Ar Total Score: 17 BHS Progress Note (SOAP) Subjective: ALERT,IRRITABLE,ANXIOUS,INTERRUPTED SLEEP,TREMOR Objective: 05/25/16 10:33 Vital Signs Temperature 97.2 F L 05/25/16 06:00 Pulse Rate 73 05/25/16 06:00 Respiratory Rate 18 05/25/16 06:00 Blood Pressure 131/89 05/25/16 06:00 O2 Sat by Pulse Oximetry (%) EKG NSR,NORMAL ECG Laboratory Last Values WBC 4.7 K/mm3 (4.0-10.0) 05/25/16 07:00 RBC 5.17 M/mm3 (4.00-5.60) 05/25/16 07:00 Hgb 12.5 GM/dL (11.7-16.9) D 05/25/16 07:00 Hct 38.7 % (35.4-49) 05/25/16 07:00 MCV 74.8 fl (80-96) L 05/25/16 07:00 MCHC 32.3 g/dl (32.0-35.9) 05/25/16 07:00 RDW 16.8 % (11.9-15.9) H 05/25/16 07:00 Plt Count 274 K/MM3 (134-434) D 05/25/16 07:00 MPV 7.3 fl (7.5-11.1) L 05/25/16 07:00 Sodium 141 mmol/L (136-145) 05/25/16 07:00 Potassium 3.7 mmol/L (3.5-5.1) 05/25/16 07:00 Chloride 107 mmol/L (98-107) 05/25/16 07:00 LABS PENDING Assessment: 05/25/16 10:34 WITHDRAWAL SYMPTOM Plan: CONTINUE DETOX
[2016-05-25 13:32] LABS: URINE APPEARANCE CLEAR; URINE BILIRUBIN NEGATIVE (NEGATIVE); URINE BLOOD NEGATIVE (NEGATIVE); URINE COLOR YELLOW; URINE GLUCOSE (UA) NEGATIVE (NEGATIVE); URINE KETONE NEGATIVE (NEGATIVE); URINE LEUK ESTERASE NEGATIVE (NEGATIVE); URINE NITRITE NEGATIVE (NEGATIVE); URINE PROTEIN NEGATIVE (NEGATIVE); URINE UROBILINOGEN NEGATIVE E.U./dl (0.2-1.0)
--- NOTE | 2016-05-25 15:23 | CONSULT ---
[facility] Psychiatric Consult - Data Date of interview: 05/25/16 Admission source: [facility] Identifying data: This is 46 years old male with no psychiatric hospitalization history intoxicated with with: Cocaine , Alcohol, Nicoptine Substance Abuse History: - Smoking Cessation. Smoking history: Current every day smoker. Have you smoked in the past 12 months: Yes. Aproximately how many cigarettes per day: 8. Cigars Per Day: 0. Hx Chewing Tobacco Use: No. Initiated information on smoking cessation: Yes. 'Breaking Loose' booklet given : 05/24/16. - Substance & Tx. History. Hx Alcohol Use: Yes. Hx Substance Use : Yes. Substance Use Type: Alcohol, Cocaine. Hx Substance Use Treatment: Yes ( [facility] 03/19/16 to 03/22/16). - Substances Abused. Alcohol. Route: Oral. Frequency: Daily. Amount used: 1 gallon of vodka/2 of 40 ozs of beer. Age of first use: 13. Date of Last Use: 05/24/16. Cocaine. Route: Smoking. Frequency: Daily. Age of first use: 16. Date of Last Use: 05/23/16 Medical History: Syncope hiustory, Right conjunctivitis history, Sepsis history , Asthma, HTN, Hypercholesterolemia Psychiatric History: Patient reprots to carry SWchizoaffective disorder, reports no history oif psychiatric admissions, reports stable on Zyprexa 15mg po qhs Physical/Sexual Abuse/Trauma History: Denies Additional Comment: Zyprexa 15mg po qhs Mental Status Exam - Mental Status Exam Alert and Oriented to: Person Cognitive Function: Fair Patient Appearance: Unkempt Mood: Sad Patient Behavior: Sedated Speech Pattern: Delayed Voice Loudness: Mildly Soft/Quiet Thought Process: Circumstantial Thought Disorder: Being Controlled Hallucinations: Denies Suicidal Ideation: Denies Homicidal Ideation: Denies Insight/Judgement: Fair Sleep: Difficulty falling asleep Appetite: Fair Muscle strength/Tone: Mild Hypertonicity Gait/Station: Shuffling Additional Comments: Zyprexa 15mg po qhs Psychiatric Findings - Problem List ([place] 1, 2,3) (1) Alcohol dependence Current Visit: No Status: Acute (2) Alcohol dependence with uncomplicated withdrawal Current Visit: No Status: Acute (3) Cocaine dependence, uncomplicated Current Visit: No Status: Acute (4) Opioid dependence with withdrawal Current Visit: No Status: Acute (5) Nicotine dependence Current Visit: No Status: Chronic Qualifiers: Nicotine product type: cigarettes Substance use status: uncomplicated Qualified Code(s): F17.210 - Nicotine dependence, cigarettes, uncomplicated (6) Schizoaffective disorder Current Visit: No Status: Chronic Qualifiers: Schizoaffective disorder type: bipolar Qualified Code(s): F25.0 - Schizoaffective disorder, bipolar type (7) Schizoaffective disorder, bipolar type Current Visit: No Status: Chronic - Initial Treatment Plan Initial Treatment Plan: Zyprexa 15mg po qhs
[2016-05-25] MEDS: THIAMINE HCL 100 MG TABLET (FP) PO SCH (22:45)
[2016-05-25] MEDS: OLANZapine 7.5 MG TABLET PO SCH (22:55)
[2016-05-26] MEDS: chlordiazePOXIDE HCL 25 MG CAPSULE PO SCH ×3 (05:58→17:05)
--- NOTE | 2016-05-26 10:24 | PN ---
S CIWA - CIWA Score Nausea/Vomitin Muscle Tremors: 3 Anxiety: 2 Agitation: 2 Paroxysmal Sweats: 1-Minimal Palms Moist Orientation: 0-Oriented Tacttile Disturbances: 1-Very Mild Itch/Numbness Auditory Disturbances: 1-Very Mild Visual Disturbances: 1-Very Mild Sensitivity Headache: 2-Mild CIWA-Ar Total Score: 16 S Progress Note (SOAP) Subjective: ALERT,IRRITABLE,ANXIOUS,INTERRUPTED SLEEP,TREMOR Objective: 05/26/16 10:23 Vital Signs Temperature 97.5 F L 05/26/16 10:00 Pulse Rate 86 05/26/16 10:00 Respiratory Rate 18 05/26/16 10:00 Blood Pressure 131/77 05/26/16 10:00 O2 Sat by Pulse Oximetry (%) Laboratory Last Values WBC 4.7 K/mm3 (4.0-10.0) 05/25/16 07:00 RBC 5.17 M/mm3 (4.00-5.60) 05/25/16 07:00 Hgb 12.5 GM/dL (11.7-16.9) D 05/25/16 07:00 Hct 38.7 % (35.4-49) 05/25/16 07:00 MCV 74.8 fl (80-96) L 05/25/16 07:00 MCHC 32.3 g/dl (32.0-35.9) 05/25/16 07:00 RDW 16.8 % (11.9-15.9) H 05/25/16 07:00 Plt Count 274 K/MM3 (134-434) D 05/25/16 07:00 MPV 7.3 fl (7.5-11.1) L 05/25/16 07:00 Sodium 141 mmol/L (136-145) 05/25/16 07:00 Potassium 3.7 mmol/L (3.5-5.1) 05/25/16 07:00 Chloride 107 mmol/L (98-107) 05/25/16 07:00 Carbon Dioxide 26 mmol/L (21-32) 05/25/16 07:00 Anion Gap 8 (8-16) 05/25/16 07:00 BUN 11 mg/dL (7-18) D 05/25/16 07:00 Creatinine 0.8 mg/dL (0.7-1.3) 05/25/16 07:00 Creat Clearance w eGFR > 60 (>60) 05/25/16 07:00 Random Glucose 80 mg/dL (74-106) D 05/25/16 07:00 Calcium 8.5 mg/dL (8.5-10.1) 05/25/16 07:00 Total Bilirubin 0.8 mg/dL (0.2-1.0) D 05/25/16 07:00 AST 37 U/L (15-37) D 05/25/16 07:00 ALT 37 U/L (12-78) D 05/25/16 07:00 Alkaline Phosphatase 67 U/L (45-117) 05/25/16 07:00 Total Protein 6.4 g/dl (6.4-8.2) 05/25/16 07:00 Albumin 3.5 g/dl (3.4-5.0) 05/25/16 07:00 Urine Color Yellow 05/25/16 10:40 Urine Appearance Clear 05/25/16 10:40 Urine pH 5.0 (5.0-8.0) 05/25/16 10:40 Ur Specific [place] 1.020 (1.001-1.035) 05/25/16 10:40 Urine Protein Negative (NEGATIVE) 05/25/16 10:40 Urine Glucose (UA) Negative (NEGATIVE) 05/25/16 10:40 Urine Ketones Negative (NEGATIVE) 05/25/16 10:40 Urine Blood Negative (NEGATIVE) 05/25/16 10:40 Urine Nitrite Negative (NEGATIVE) 05/25/16 10:40 Urine Bilirubin Negative (NEGATIVE) 05/25/16 10:40 Urine Urobilinogen Negative E.U./dl (0.2-1.0) 05/25/16 10:40 Ur Leukocyte Esterase Negative (NEGATIVE) 05/25/16 10:40 RPR Titer Nonreactive (NONREACTIVE) 05/25/16 07:00 Assessment: 05/26/16 10:23 WITHDRAWAL SYMPTOM Plan: CONTINUE DETOX
[2016-05-26] MEDS: NICOTINE POLACRILEX 2 MG GUM BC PRN ×2 (10:42→19:23)
[2016-05-26] MEDS: PRENATAL VITAMINS W/ FOLIC ACID TABLET (FP) PO SCH (10:43)
[2016-05-26] MEDS: amLODIPine BESYLATE 10 MG TABLET (FP) PO SCH (10:43)
[2016-05-26] MEDS: chlordiazePOXIDE 5 MG CAPSULE PO SCH (22:46)
[2016-05-26] MEDS: OLANZapine 7.5 MG TABLET PO SCH (22:47)
[2016-05-26] MEDS: THIAMINE HCL 100 MG TABLET (FP) PO SCH (22:47)
[2016-05-27] MEDS: chlordiazePOXIDE 5 MG CAPSULE PO SCH ×3 (05:28→17:35)
[2016-05-27] MEDS: NICOTINE POLACRILEX 2 MG GUM BC PRN ×4 (05:30→17:37)
--- NOTE | 2016-05-27 10:10 | PN ---
S Progress Note (SOAP) Subjective: ALERT,IRRITABLE,ANXIOUS,INTERRUPTED SLEEP, Objective: 05/27/16 10:08 Vital Signs Temperature 97.9 F 05/27/16 05:52 Pulse Rate 70 05/27/16 05:52 Respiratory Rate 18 05/27/16 05:52 Blood Pressure 132/75 05/27/16 05:52 O2 Sat by Pulse Oximetry (%) Assessment: 05/27/16 10:08 WITHDRAWAL SYMPTOM Plan: CONTINUE DETOX,DISCHARGE IN AM
[2016-05-27] MEDS: amLODIPine BESYLATE 10 MG TABLET (FP) PO SCH (10:14)
[2016-05-27] MEDS: PRENATAL VITAMINS W/ FOLIC ACID TABLET (FP) PO SCH (10:14)
[2016-05-27] MEDS: THIAMINE HCL 100 MG TABLET (FP) PO SCH (22:03)
[2016-05-27] MEDS: OLANZapine 7.5 MG TABLET PO SCH (22:04)
[2016-05-27] MEDS: chlordiazePOXIDE HCL 10 MG CAPSULE PO SCH (22:04)
[2016-05-28] MEDS: chlordiazePOXIDE HCL 10 MG CAPSULE PO SCH ×3 (05:50→17:31)
[2016-05-28] MEDS: NICOTINE POLACRILEX 2 MG GUM BC PRN ×2 (05:55→17:31)
--- NOTE | 2016-05-28 08:26 | PN ---
S Progress Note (SOAP) Subjective: ALERT,NO COMPLAINT Objective: 05/28/16 08:23 05/28/16 08:24 Vital Signs Temperature 97.6 F 05/28/16 06:46 Pulse Rate 67 05/28/16 06:46 Respiratory Rate 18 05/28/16 06:46 Blood Pressure 125/74 05/28/16 06:46 O2 Sat by Pulse Oximetry (%) Assessment: 05/28/16 08:24 DETOX COMPLETED,NO WITHDRAWAL SYMPTOM Plan: DISCHARGE TODAY,FOLLOW UP WITH AFTER CARE PROGRAM ARRANGEMENT
--- NOTE | 2016-05-28 08:31 | DS ---
[facility] Detox Discharge Summary Admission Date: 05/24/16 Discharge Date: 05/28/16 - History Present History: Alcohol Dependence, Cocaine Dependence Pertinent Past History: ASTHMA HYPERTENSION HYPERCHOLESTEROLEMIA NICOTINE DEPENDENCE DEFORMITY OF RIGHT WRIST BIPOLAR DISORDER - Physical Exam Results Vital Signs: Vital Signs Temperature 97.6 F 05/28/16 06:46 Pulse Rate 67 05/28/16 06:46 Respiratory Rate 18 05/28/16 06:46 Blood Pressure 125/74 05/28/16 06:46 O2 Sat by Pulse Oximetry (%) Pertinent Admission Physical Exam Findings: WITHDRAWAL SYMPTOM - Treatment Hospital Course: Detox Protocol Followed, Detoxed Safely, Responded well, Discharged Condition Good, Rehab Referral Accepted Patient has Accepted a Rehab Referral to: FOLLOW UP WITH [facility] - Medication Discharge Medications: Ambulatory Orders Albuterol Sulfate Inhaler - [Ventolin HFA Inhaler -] 2 inhaler IH PRN PRN Amlodipine Besylate [Norvasc -] 10 mg PO DAILY 05/24/16 Olanzapine [Zyprexa -] 15 mg PO DAILY 05/24/16 Olanzapine [Zyprexa -] 15 mg PO HS #30 tablet 05/25/16 - Diagnosis (1) Syncope Current Visit: No Status: Active (2) Alcohol dependence with uncomplicated withdrawal Current Visit: No Status: Acute (3) Cocaine dependence, uncomplicated Current Visit: No Status: Acute (4) Deformity of right wrist Current Visit: No Status: Acute (5) Asthma Current Visit: No Status: Chronic (6) Essential hypertension Current Visit: No Status: Chronic (7) Hypercholesterolemia Current Visit: No Status: Chronic (8) Nicotine dependence Current Visit: No Status: Chronic Qualifiers: Nicotine product type: cigarettes Substance use status: uncomplicated Qualified Code(s): F17.210 - Nicotine dependence, cigarettes, uncomplicated (9) Bipolar disorder Current Visit: No Status: Suspected - AMA Did Patient Leave Against Medical Advice: No
[2016-05-28] MEDS: PRENATAL VITAMINS W/ FOLIC ACID TABLET (FP) PO SCH (11:07)
[2016-05-28] MEDS: amLODIPine BESYLATE 10 MG TABLET (FP) PO SCH (11:08)
--- NOTE | 2016-05-28 13:20 | HP ---
Psychiatrist Admission - Data Date of interview: 05/28/16 Admission source: 6N Identifying data: This is the second [facility] admission for this 46 years old Black male, father of 2 children, unemployed on SSI/SSD, homeless Medical History: Significant for Bronchial asthma, HTN and history of ortho treatment for fracture of left elbow in 1985 & right wrist in 2008. Smokes 8 cigarettes daily Psychiatric History: Reports that his first psychiatric contact was at age 10 when his best friend of Leukemia. Claims that he was so affected that he became depressed. His mother took him to see a psychiatrist in a clinic in the [place] and he was prescribed Zoloft but claims he did not take it. In 2000 while in [facility], he was diagnosed with Bipolar/Schizophrenia and prescribed Zyprexa 15 mg po HS. Denies previous psychiatric inpatient hospitalization or suicidal attempt. However he reports having 2 ED admissions for overnight observations and most recent one was in 2013 at [facility]. Reports chronic non-compliance with psychiatric outpatient services but goes to [facility] ED for his medication(Zyprexa 15 mg po HS) Physical/Sexual Abuse/Trauma History: Denies history of emotional, physical or sexual abuse as well as DV relationship Additional Comment: Reports history of multiple arrests including 2 felony comvictions. Denies being on parole/probation at present Vital Signs: Vital Signs - 24 hr 05/27/16 05/27/16 05/27/16 14:10 17:24 21:43 Temperature 97.7 F 97.9 F 97.3 F L Pulse Rate 93 H 76 97 H Respiratory 20 18 18 Rate Blood Pressure 132/87 127/65 142/94 05/28/16 05/28/16 05/28/16 00:30 03:30 06:46 Temperature 97.6 F Pulse Rate 67 Respiratory 20 18 18 Rate Blood Pressure 125/74 05/28/16 05/28/16 09:52 13:12 Temperature 97.7 F 97.7 F Pulse Rate 86 86 Respiratory 8 L 8 L Rate Blood Pressure 149/92 149/92 Allergies/Adverse Reactions: Allergies Allergy/AdvReac Type Severity Reaction Status Date / Time Sweet Potato Allergy Severe Hives Verified 03/19/16 11:27 No Known Drug Allergies Allergy Verified 03/19/16 11:27 squash Allergy Severe Hives Uncoded 03/19/16 11:27 Date of last physical exam: 05/24/16 Concur with the findings of this exam: Yes - Substance Abuse/Tx History Hx Alcohol Use: Yes Hx Substance Use: Yes Substance Use Type: Alcohol (Started drinking alcohol at age 13, consumes one gallon of vodka & 2x 40oz of beer daily. Last drink on 05/24/16), Cocaine ( Started smoking crack cocaine at age 16, consumes daily. Last smoked on 05/23/16) Hx Substance Use Treatment: Yes (multiple previous inpt detox(12) & one inpt rehab @ [facility]) - Admission Criteria Previous failed treatment: Yes Poor recovery environment: Yes Comorbidities: Yes Lacks judgement: Yes Mental Status Exam - Mental Status Exam Alert and Oriented to: Time, Place, Person Cognitive Function: Fair Patient Appearance: Well Groomed Mood: Angry Affect: Appropriate Patient Behavior: Cooperative Speech Pattern: Clear Voice Loudness: Normal Thought Process: Intact Thought Disorder: Not Present Hallucinations: Denies Suicidal Ideation: Denies Homicidal Ideation: Denies Insight/Judgement: Fair Sleep: Poorly Appetite: Fair Muscle strength/Tone: Normal Gait/Station: Normal Psychiatric Findings - Problem List ([place] 1, 2,3) (1) Alcohol dependence Current Visit: No Status: Acute (2) Cocaine dependence, uncomplicated Current Visit: No Status: Acute (3) Nicotine dependence Current Visit: No Status: Chronic Qualifiers: Nicotine product type: cigarettes Substance use status: uncomplicated Qualified Code(s): F17.210 - Nicotine dependence, cigarettes, uncomplicated (4) Schizoaffective disorder Current Visit: No Status: Chronic Qualifiers: Schizoaffective disorder type: bipolar Qualified Code(s): F25.0 - Schizoaffective disorder, bipolar type (5) Acute sinusitis Current Visit: No Status: Acute Qualifiers: Sinusitis location: frontal Recurrence: non-recurrent Qualified Code(s): J01.10 - Acute frontal sinusitis, unspecified (6) Conjunctivitis of right eye Current Visit: No Status: Acute (7) Deformity of right wrist Current Visit: No Status: Acute (8) Asthma Current Visit: No Status: Chronic (9) Essential hypertension Current Visit: No Status: Chronic - Initial Treatment Plan Initial Treatment Plan: 1) Continue Zyprexa 15 mg po HS. 2) Start Trazadone 100 mg po HS. 3) Monitor progress
[2016-05-28] MEDS: traZODone HCL 100 MG TABLET (FP) PO SCH (21:06)
[2016-05-28] MEDS ORDERED: PT OWN MED DRAWER 7, Y5N ONE (21:06)
[2016-05-28] MEDS: THIAMINE HCL 100 MG TABLET (FP) PO SCH (21:06)
[2016-05-28] MEDS: OLANZapine 7.5 MG TABLET PO SCH (21:07)
[2016-05-28] MEDS ORDERED: OLANZapine 7.5 MG TABLET PO SCH (22:00)
[2016-05-29] MEDS: NICOTINE POLACRILEX 2 MG GUM BC PRN ×3 (06:37→19:51)
[2016-05-29] MEDS: PRENATAL VITAMINS W/ FOLIC ACID TABLET (FP) PO SCH (10:22)
[2016-05-29] MEDS: amLODIPine BESYLATE 10 MG TABLET (FP) PO SCH (10:23)
[2016-05-29] MEDS ORDERED: PT OWN MED DRAWER 7, Y5N ONE (20:39)
[2016-05-29] MEDS: THIAMINE HCL 100 MG TABLET (FP) PO SCH (21:41)
[2016-05-29] MEDS: traZODone HCL 100 MG TABLET (FP) PO SCH (21:41)
[2016-05-29] MEDS: OLANZapine 7.5 MG TABLET PO SCH (21:42)
[2016-05-30] MEDS: NICOTINE POLACRILEX 2 MG GUM BC PRN ×2 (10:25→16:50)
[2016-05-30] MEDS: amLODIPine BESYLATE 10 MG TABLET (FP) PO SCH (10:25)
[2016-05-30] MEDS: PRENATAL VITAMINS W/ FOLIC ACID TABLET (FP) PO SCH (10:25)
[2016-05-30] MEDS: traZODone HCL 100 MG TABLET (FP) PO SCH (21:09)
[2016-05-30] MEDS: THIAMINE HCL 100 MG TABLET (FP) PO SCH (21:09)
[2016-05-30] MEDS ORDERED: PT OWN MED DRAWER 7, Y5N ONE (21:10)
[2016-05-30] MEDS: MAG HYDROX/AL HYDROX/SIMETH 30 ML UNIT-DOSE CUP PO PRN (21:10)
[2016-05-30] MEDS: OLANZapine 7.5 MG TABLET PO SCH (21:14)
[2016-05-31] MEDS: NICOTINE POLACRILEX 2 MG GUM BC PRN ×4 (06:13→19:53)
[2016-05-31] MEDS: amLODIPine BESYLATE 10 MG TABLET (FP) PO SCH (10:00)
[2016-05-31] MEDS: PRENATAL VITAMINS W/ FOLIC ACID TABLET (FP) PO SCH (10:00)
[2016-05-31] MEDS: MAG HYDROX/AL HYDROX/SIMETH 30 ML UNIT-DOSE CUP PO PRN (19:54)
[2016-05-31] MEDS: OLANZapine 7.5 MG TABLET PO SCH (21:05)
[2016-05-31] MEDS: traZODone HCL 100 MG TABLET (FP) PO SCH (21:05)
[2016-05-31] MEDS: THIAMINE HCL 100 MG TABLET (FP) PO SCH (21:05)
[2016-05-31] MEDS: diphenhydrAMINE HCL 50 MG CAPSULE PO PRN (21:06)
[2016-06-01] MEDS: NICOTINE POLACRILEX 2 MG GUM BC PRN ×3 (06:12→15:47)
[2016-06-01] MEDS: amLODIPine BESYLATE 10 MG TABLET (FP) PO SCH (10:35)
[2016-06-01] MEDS: PRENATAL VITAMINS W/ FOLIC ACID TABLET (FP) PO SCH (10:35)
[2016-06-01] MEDS ORDERED: PT OWN MED DRAWER 7, Y5N ONE (19:52)
[2016-06-01] MEDS: traZODone HCL 100 MG TABLET (FP) PO SCH (21:07)
[2016-06-01] MEDS: OLANZapine 7.5 MG TABLET PO SCH (21:07)
[2016-06-01] MEDS: diphenhydrAMINE HCL 50 MG CAPSULE PO PRN (21:07)
[2016-06-01] MEDS: THIAMINE HCL 100 MG TABLET (FP) PO SCH (21:07)
[2016-06-01] MEDS: NICOTINE POLACRILEX 4 MG GUM BUC PRN (21:57)
[2016-06-02] MEDS: NICOTINE POLACRILEX 4 MG GUM BUC PRN ×3 (06:14→14:55)
[2016-06-02] MEDS: PRENATAL VITAMINS W/ FOLIC ACID TABLET (FP) PO SCH (10:34)
[2016-06-02] MEDS: amLODIPine BESYLATE 10 MG TABLET (FP) PO SCH (10:34)
[2016-06-02] MEDS ORDERED: PT OWN MED DRAWER 7, Y5N ONE ×2 (17:09→21:13)
[2016-06-02] MEDS: OLANZapine 7.5 MG TABLET PO SCH (21:12)
[2016-06-02] MEDS: traZODone HCL 100 MG TABLET (FP) PO SCH (21:12)
[2016-06-02] MEDS: THIAMINE HCL 100 MG TABLET (FP) PO SCH (21:14)
[2016-06-03] MEDS: PRENATAL VITAMINS W/ FOLIC ACID TABLET (FP) PO SCH (10:24)
[2016-06-03] MEDS: amLODIPine BESYLATE 10 MG TABLET (FP) PO SCH (10:24)
[2016-06-03] MEDS: NICOTINE 14 MG/24 HOURS TOPICAL PATCH TD SCH (10:25)
[2016-06-03] MEDS ORDERED: PT OWN MED DRAWER 7, Y5N ONE (19:48)
[2016-06-03] MEDS: traZODone HCL 100 MG TABLET (FP) PO SCH (21:06)
[2016-06-03] MEDS: diphenhydrAMINE HCL 50 MG CAPSULE PO PRN (21:06)
[2016-06-03] MEDS: THIAMINE HCL 100 MG TABLET (FP) PO SCH (21:07)
[2016-06-03] MEDS: OLANZapine 7.5 MG TABLET PO SCH (21:07)
[2016-06-04] MEDS: amLODIPine BESYLATE 10 MG TABLET (FP) PO SCH (10:25)
[2016-06-04] MEDS: PRENATAL VITAMINS W/ FOLIC ACID TABLET (FP) PO SCH (10:25)
[2016-06-04] MEDS: NICOTINE 14 MG/24 HOURS TOPICAL PATCH TD SCH (10:25)
[2016-06-04] MEDS: OLANZapine 7.5 MG TABLET PO SCH (21:11)
[2016-06-04] MEDS ORDERED: PT OWN MED DRAWER 7, Y5N ONE (21:11)
[2016-06-04] MEDS: traZODone HCL 100 MG TABLET (FP) PO SCH (21:11)
[2016-06-04] MEDS: THIAMINE HCL 100 MG TABLET (FP) PO SCH (21:11)
[2016-06-05] MEDS: NICOTINE 14 MG/24 HOURS TOPICAL PATCH TD SCH (10:27)
[2016-06-05] MEDS: PRENATAL VITAMINS W/ FOLIC ACID TABLET (FP) PO SCH (10:27)
[2016-06-05] MEDS: amLODIPine BESYLATE 10 MG TABLET (FP) PO SCH (10:29)
[2016-06-05] MEDS: diphenhydrAMINE HCL 50 MG CAPSULE PO PRN (21:07)
[2016-06-05] MEDS: traZODone HCL 100 MG TABLET (FP) PO SCH (21:07)
[2016-06-05] MEDS: THIAMINE HCL 100 MG TABLET (FP) PO SCH (21:07)
[2016-06-05] MEDS: OLANZapine 7.5 MG TABLET PO SCH (21:08)
[2016-06-06] MEDS: PRENATAL VITAMINS W/ FOLIC ACID TABLET (FP) PO SCH (10:30)
[2016-06-06] MEDS: amLODIPine BESYLATE 10 MG TABLET (FP) PO SCH (10:30)
[2016-06-06] MEDS: NICOTINE 14 MG/24 HOURS TOPICAL PATCH TD SCH (10:30)
[2016-06-06] MEDS: diphenhydrAMINE HCL 50 MG CAPSULE PO PRN (21:11)
[2016-06-06] MEDS: THIAMINE HCL 100 MG TABLET (FP) PO SCH (21:11)
[2016-06-06] MEDS: traZODone HCL 100 MG TABLET (FP) PO SCH (21:11)
[2016-06-06] MEDS: OLANZapine 7.5 MG TABLET PO SCH (21:12)
[2016-06-07] MEDS: NICOTINE POLACRILEX 4 MG GUM BUC PRN (06:17)
[2016-06-07] MEDS: NICOTINE 14 MG/24 HOURS TOPICAL PATCH TD SCH (10:35)
[2016-06-07] MEDS: PRENATAL VITAMINS W/ FOLIC ACID TABLET (FP) PO SCH (10:35)
[2016-06-07] MEDS: amLODIPine BESYLATE 10 MG TABLET (FP) PO SCH (10:35)
[2016-06-07] MEDS: THIAMINE HCL 100 MG TABLET (FP) PO SCH (21:08)
[2016-06-07] MEDS: traZODone HCL 100 MG TABLET (FP) PO SCH (21:08)
[2016-06-07] MEDS: diphenhydrAMINE HCL 50 MG CAPSULE PO PRN (21:08)
[2016-06-07] MEDS: OLANZapine 7.5 MG TABLET PO SCH (21:09)
[2016-06-08 07:14] VITALS: TEMP 97.3
[2016-06-08] MEDS: amLODIPine BESYLATE 10 MG TABLET (FP) PO SCH (10:06)
[2016-06-08] MEDS: NICOTINE POLACRILEX 4 MG GUM BUC PRN (10:06)
[2016-06-08] MEDS: PRENATAL VITAMINS W/ FOLIC ACID TABLET (FP) PO SCH (10:06)
[2016-06-08] MEDS: NICOTINE 14 MG/24 HOURS TOPICAL PATCH TD SCH (10:06)
[2016-06-08 10:23] VITALS: BP 137/82; PULSE 86
[2016-06-08] MEDS ORDERED: COLLOIDAL OATMEAL 1 BAR EACH TP PRN (12:54)
--- NOTE | 2016-06-08 15:13 | PN ---
Psychiatric Progress Note Vital Signs: Vital Signs Period Temp Pulse Resp BP Sys/Beard Pulse Ox Last 24 Hr 97.3 F 80-86 16-18 127-137/79-82 Date of Session: 06/08/16 Chief Complaint:: Discharge Note HPI: Patient addressing Alcohol and Cocaine Dependence comorbid with Nicotine Dependence and Schizoaffective Disorder ROS: Asthma, HTN were medically managed Current Medications: Active Medications Generic Name Dose Route Start Last Admin Trade Name Freq PRN Reason Stop Dose Admin Acetaminophen 650 mg 05/24/16 17:30 05/29/16 10:22 Tylenol - PO 650 mg Q4H PRN Administration FEVER OR PAIN Al Hydroxide/Mg Hydroxide 30 ml 05/24/16 17:30 05/31/16 19:54 Mylanta Oral Suspension - PO 30 ml Q6H PRN Administration DYSPEPSIA Albuterol Sulfate 2 puff 05/24/16 17:34 Ventolin Hfa Inhaler - IH Q4H PRN SHORT OF BREATH/WHEEZING Amlodipine Besylate 10 mg 05/25/16 10:00 06/08/16 10:06 Norvasc - PO 10 mg DAILY IM Administration Colloidal Oatmeal 1 applic 06/08/16 12:54 Aveeno Soap - TP DAILY PRN HYGEINE Diphenhydramine HCl 50 mg 05/24/16 17:30 06/07/16 21:08 Benadryl - PO 50 mg HSMR1 PRN Administration INSOMNIA Eucalyptus/Menthol/Phenol/Sorbitol 1 each 05/24/16 17:30 Cepastat Lozenge - MM Q4H PRN SORE THROAT Guaifenesin 10 ml 05/24/16 17:30 Robitussin Dm - PO Q6H PRN COUGH Hydroxyzine Pamoate 50 mg 05/24/16 17:30 Vistaril - PO Q4H PRN AGITATION Ibuprofen 400 mg 05/24/16 17:30 Motrin - PO Q6H PRN SEVERE PAIN Loperamide HCl 4 mg 05/24/16 17:30 Imodium - PO Q6H PRN DIARRHEA Magnesium Citrate 300 ml 05/24/16 17:30 Citroma - PO Q48H PRN CONSTIPATION Magnesium Hydroxide 30 ml 05/24/16 17:30 Milk Of Magnesia - PO DAILY PRN CONSTIPATION Nicotine 14 mg 06/03/16 10:00 06/08/16 10:06 Nicoderm Patch - TD 14 mg DAILY MI Administration Nicotine Polacrilex 4 mg 06/01/16 20:59 06/08/16 10:06 Nicorette Gum - BUC 4 mg Q2H PRN Administration NICOTINE REPLACEMENT RX Olanzapine 15 mg 05/25/16 22:00 06/07/16 21:09 Zyprexa - PO 15 mg HS MI Administration Multivit/Folic Acid/Iron 1 tab 05/25/16 10:00 06/08/16 10:06 Vitamins (Sjr) - PO 1 tab DAILY MI Administration Pseudoephedrine/Triprolidine 1 combo 05/24/16 17:30 Actifed - PO TID PRN NASAL CONGESTION Thiamine HCl 100 mg 05/24/16 22:00 06/07/16 21:08 Vitamin B1 - PO 100 mg HS MI Administration Trazodone HCl 100 mg 05/28/16 22:00 06/07/16 21:08 Desyrel - PO 100 mg HS MI Administration Current Side Effect: No Lab tests ordered: Yes Lab tests reviewed: Yes Provider note:: Patient has completed this program today. He has partially met his treatment goals and will continue to address his issues in intermediate teacher treatment at [facility] in [place], [place]. 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 He responded well to Zyprexa 15 mg po HS and Trazadone 100 mg po HS. Script for these medications are electronically transmitted to [facility] at [address] [place] [id number]. He is stable for discharge today Total face to face time:: 35 Mental Status Exam - Mental Status Exam Alert and Oriented to: Time, Place, Person Cognitive Function: Fair Patient Appearance: Well Groomed Mood: Hopeful, Euthymic Affect: Appropriate Patient Behavior: Cooperative Speech Pattern: Clear Voice Loudness: Normal Thought Process: Intact Thought Disorder: Not Present Hallucinations: Denies Suicidal Ideation: Denies Homicidal Ideation: Denies Insight/Judgement: Fair Sleep: Fair Appetite: Good Muscle strength/Tone: Normal Gait/Station: Normal Psychiatric Treatment Plan - Problem List (1) Alcohol dependence Current Visit: No (2) Cocaine dependence, uncomplicated Current Visit: No (3) Nicotine dependence Current Visit: No Qualifiers: Nicotine product type: cigarettes Substance use status: uncomplicated Qualified Code(s): F17.210 - Nicotine dependence, cigarettes, uncomplicated (4) Schizoaffective disorder Current Visit: No Qualifiers: Schizoaffective disorder type: bipolar Qualified Code(s): F25.0 - Schizoaffective disorder, bipolar type (5) Acute sinusitis Current Visit: No Qualifiers: Sinusitis location: frontal Recurrence: non-recurrent Qualified Code(s): J01.10 - Acute frontal sinusitis, unspecified (6) Conjunctivitis of right eye Current Visit: No (7) Deformity of right wrist Current Visit: No (8) Asthma Current Visit: No (9) Essential hypertension Current Visit: No Initial treatment plan: Patient is discharged today and referred to [facility] in [place], [place] for intermediate teacher treatment
== END 2016-06-08 13:15 | disposition home or self-care (01) | DRG 895 ==
LOC: YASAS 13:23 → Y6N 16:16 → Y3W 05-28 12:02
PROVIDERS: ADMIT Internal Medicine; ATTEND Internal Medicine Addiction Medicine
PROC: HZ2ZZZZ Detoxification Services for Substance Abuse Treatment (ICD-10-PCS; principal; 2016-05-24)
PROC: HZ42ZZZ Group Counseling for Substance Abuse Treatment, Cognitive-Behavioral (ICD-10-PCS; 2016-05-28)
DX: F10.230 Alcohol dependence with withdrawal, uncomplicated (principal); F14.20 Cocaine dependence, uncomplicated; F17.210 Nicotine dependence, cigarettes, uncomplicated; F25.0 Schizoaffective disorder, bipolar type; F31.9 Bipolar disorder, unspecified; I10 Essential (primary) hypertension; J45.909 Unspecified asthma, uncomplicated; E78.00 Pure hypercholesterolemia, unspecified; Z86.79 Personal history of other diseases of the circulatory system; Z87.898 Personal history of other specified conditions
CPT/HCPCS: 36415; 80053; 81003; 85027; 86593; 93005; 93010

== ENCOUNTER 2016-07-20 08:22 | Inpatient (IN) | payer OTHER ==
[2016-07-20 10:05] VITALS: BMI 26.4
--- NOTE | 2016-07-20 10:53 | HP ---
CIWA Score - CIWA Score Nausea/Vomitin-No Nausea/No Vomiting Muscle Tremors: 3 Anxiety: 4-Mod. Anxious/Guarded Agitation: 4-Moderately Restless Paroxysmal Sweats: 1-Minimal Palms Moist Orientation: 0-Oriented Tacttile Disturbances: 3-Moderate Itch/Numb/Burn Auditory Disturbances: 0-None Visual Disturbances: 0-None Headache: 1-Very Mild CIWA-Ar Total Score: 16 Admission ROS S - HPI Chief Complaint: DETOX TX FOR ALCOHOL DEPENDENCE Allergies/Adverse Reactions: Allergies Allergy/AdvReac Type Severity Reaction Status Date / Time Sweet Potato Allergy Severe Hives Verified 07/20/16 10:21 No Known Drug Allergies Allergy Verified 07/20/16 10:21 squash Allergy Severe Hives Uncoded 07/20/16 10:21 History of Present Illness: 46 Y/O AA/MALE WITH A HX OF ALCOHOL AND COCAINE DEPENDENCE SEEKING DETOX TX. P HAS PREVIOUS EPISODES OF TX WITH LONGEST PERIOD OF SOBRIETY OF 5 - 7 YRS TOTAL IN CONFINEMENT AND OUT IN COMMUNITY. Exam Limitations: No Limitations - Ebola screening Have you traveled outside of the country in the last 21 days: No Have you had contact with anyone from an Ebola affected area: No Have you been sick,other than usual withdrawal symptoms: No Do you have a fever: No - Review of Systems Constitutional: Chills, Night Sweats, Changes in sleep, Unintentional Wgt. Loss EENT: reports: Blurred Vision, Tearing, Nose Congestion, Dental Problems ( MISSING TEETH/DENTAL EXTRACTION), Other (RIGHT EYE IRRITATION DUE TO DEBRI IN EYE.) Respiratory: reports: Shortness of Breath (HX ASTHMA), Wheezing GI: reports: No Symptoms Reported : reports: No Symptoms Reported Musculoskeletal: reports: No Symptoms Reported Integumentary: reports: Other (LEFT ELBOW SCAR) Neuro: reports: Headache, Tremors Endocrine: reports: No Symptoms Reported Hematology: reports: No Symptoms Reported Psychiatric: reports: Orientated x3, Anxious, Depressed Other Systems: Reviewed and Negative Patient History - Patient Medical History Hx Anemia: No Hx Asthma: Yes (Pt is on MDi) Hx Chronic Obstructive Pulmonary Disease (COPD): No Hx Cancer: No Hx Cardiac Disorders: No Hx Congestive Heart Failure: No Hx Hypertension: Yes (Pt is on meds.) Hx Hypercholesterolemia: Yes (no med; DIET CONTROLLED) Hx Pacemaker: No HX Cerebrovascular Accident: No Hx Seizures: No Hx Dementia: No Hx Diabetes: No Hx Gastrointestinal Disorders: No Hx Liver Disease: No Hx Genitourinary Disorders: No Hx Sexually Transmitted Disorders: No Hx Renal Disease (ESRD): No Hx Thyroid Disease: No Hx Human Immunodeficiency Virus (HIV): No (last 03/27 [facility]) Hx Hepatitis C: No Hx Depression: Yes (ON ZYPREXA AND TRAZODONE) Hx Suicide Attempt: No Hx Bipolar Disorder: Yes (ON MEDS ) Hx Schizophrenia: No - Patient Surgical History Past Surgical History: Yes Hx Neurologic Surgery: No Hx Cataract Extraction: No Hx Cardiac Surgery: No Hx Lung Surgery: No Hx Breast Surgery: No Hx Breast Biopsy: No Hx Abdominal Surgery: No Hx Appendectomy: No Hx Cholecystectomy: No Hx Genitourinary Surgery: No Hx Section: No Hx Orthopedic Surgery: Yes (left elbow and right wrist) Other Surgical History: sx to left elbow IN 1985,FX OF RIGHT WRIST WITH DEFORMITY 2008 Anesthesia Reaction: No - PPD History Previous Implant?: Yes Documented Results: Negative w/proof Implanted On Prior [facility] Admission?: Yes Date: 05/26/16 Results: 0 MM PPD to be Administered?: No - Reproductive History Patient is a Female of Child Bearing Age (11 -55 yrs old): No (MALE) - Smoking Cessation Smoking history: Current every day smoker Have you smoked in the past 12 months: Yes Aproximately how many cigarettes per day: 8 Cigars Per Day: 0 Hx Chewing Tobacco Use: No Initiated information on smoking cessation: Yes 'Breaking Loose' booklet given: 07/20/16 - Substance & Tx. History Hx Alcohol Use: Yes (VODKA) Hx Substance Use: Yes (CRACK) Substance Use Type: Alcohol, Cocaine Hx Substance Use Treatment: Yes ( LAST TX AT [facility]) - Substances Abused Alcohol Route: Oral Frequency: Daily Amount used: 1 LITER VODKA Age of first use: 13 Date of Last Use: 07/20/16 Crack Route: Smoking Frequency: Daily Amount used: 1 AND 1/2 GRAMS Age of first use: 16 Date of Last Use: 07/20/16 Family Disease History - Family Disease History Family Disease History: CA: Father (alcohol), Respiratory: Brother (asthma, drugs and alcohol), Sister, Daughter, Other: Father, Brother Admission Physical Exam BHS - Vital Signs Vital Signs: Vital Signs - 24 hr 07/20/16 09:57 Temperature 96.4 F L Pulse Rate 90 Respiratory 18 Rate Blood Pressure 130/75 - Physical General Appearance: Yes: Mild Distress, Irritable, Anxious HEENTM: Yes: EOMI, Normocephalic, AMALIA, Pharynx Normal Respiratory: Yes: Chest Non-Tender, Lungs Clear, Normal Breath Sounds, No Respiratory Distress Neck: Yes: Supple, Trachea in good position Breast: Yes: Breast Exam Deferred Cardiology: Yes: Regular Rhythm, Regular Rate, S1, S2 Abdominal: Yes: Normal Bowel Sounds, Non Tender, Soft Genitourinary: Yes: Other (N/C) Back: Yes: Within Normal Limits Musculoskeletal: Yes: full range of Motion, Gait Steady Extremities: Yes: Normal Range of Motion, Non-Tender Neurological: Yes: cut off sawyer II-XII NML intact, Fully Oriented, Alert Integumentary: Yes: Dry, Warm Lymphatic: Yes: Within Normal Limits - Diagnostic (1) Alcohol dependence with uncomplicated withdrawal Current Visit: Yes Status: Acute (2) Cocaine dependence, uncomplicated Current Visit: Yes Status: Acute (3) 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 (4) Opioid dependence with withdrawal Current Visit: No Status: Inactive (5) Asthma Current Visit: Yes Status: Chronic (6) Essential hypertension Current Visit: Yes Status: Chronic (7) Nicotine dependence Current Visit: Yes Status: Chronic Qualifiers: Nicotine product type: cigarettes Substance use status: uncomplicated Qualified Code(s): F17.210 - Nicotine dependence, cigarettes, uncomplicated Cleared for Admission [facility] - Detox or Rehab [facility] Level of Care: Medically Managed Detox Regimen/Protocol: Librium [facility] Breath Alcohol Content Breath Alcohol Content: 0 Urine Drug Screen - Results Drug Screen Negative: No Urine Drug Screen Results: CHESTER-Cocaine, BZO-Benzodiazepines
[2016-07-20] MEDS ORDERED: IBUPROFEN 400 MG TABLET (FP) PO PRN (11:09)
[2016-07-20] MEDS ORDERED: ACETAMINOPHEN 325 MG TABLET (FP) PO PRN (11:09)
[2016-07-20] MEDS ORDERED: LOPERAMIDE HCL 2 MG CAPSULE PO PRN (11:09)
[2016-07-20] MEDS ORDERED: P-EPHED 60MG/TRIPROLIDI 2.5MG TABLET PO PRN (11:09)
[2016-07-20] MEDS ORDERED: MAGNESIUM CITRATE 300 ML BOTTLE PO PRN (11:09)
[2016-07-20] MEDS ORDERED: hydrOXYzine PAMOATE 25 MG CAPSULE (FP) PO PRN (11:09)
[2016-07-20] MEDS ORDERED: diphenhydrAMINE HCL 50 MG CAPSULE PO PRN (11:09)
[2016-07-20] MEDS ORDERED: MENTHOL/PHENOL 1 EACH UD MM PRN (11:09)
[2016-07-20] MEDS ORDERED: chlordiazePOXIDE HCL 25 MG CAPSULE PO PRN (11:09)
[2016-07-20] MEDS ORDERED: MAG HYDROX/AL HYDROX/SIMETH 30 ML UNIT-DOSE CUP PO PRN (11:09)
[2016-07-20] MEDS ORDERED: guaiFENesin/D-METHORPHAN HB 10 ML UNIT-DOSE CUPS PO PRN (11:09)
[2016-07-20] MEDS ORDERED: MAGNESIUM HYDROX 2400MG/30ML ORAL SUSPENSION 30 ML CUP PO PRN (11:09)
[2016-07-20] MEDS ORDERED: ALBUTEROL SO4 6.7 GM HFA INHALER IH PRN (11:14)
[2016-07-20] MEDS ORDERED: chlordiazePOXIDE HCL 25 MG CAPSULE PO ONE (11:32)
[2016-07-20] MEDS: chlordiazePOXIDE HCL 25 MG CAPSULE PO SCH ×3 (12:00→23:02)
[2016-07-20] MEDS: amLODIPine BESYLATE 10 MG TABLET (FP) PO SCH (12:41)
--- NOTE | 2016-07-20 13:48 | CONSULT ---
[facility] Psychiatric Consult - Data Date of interview: 07/20/16 Admission source: [facility] Identifying data: This is 46 years old male with history of Schizoaffective disorder, intoxicated with: Alcohol, Crack, Nixcotine, history of Opioid deprendency Substance Abuse History: - Smoking Cessation. Smoking history: Current every day smoker. Have you smoked in the past 12 months: Yes. Aproximately how many cigarettes per day: 8. Cigars Per Day: 0. Hx Chewing Tobacco Use: No. Initiated information on smoking cessation: Yes. 'Breaking Loose' booklet given : 07/20/16. - Substance & Tx. History. Hx Alcohol Use: Yes (VODKA). Hx Substance Use: Yes (CRACK). Substance Use Type: Alcohol, Cocaine. Hx Substance Use Treatment: Yes ( LAST TX AT [facility]OX[facility]) . - Substances Abused. Alcohol. Route: Oral. Frequency: Daily. Amount used: 1 LITER VODKA. Age of first use: 13. Date of Last Use: 07/20/16. Crack. Route: Smoking. Frequency: Daily. Amount used: 1 AND 1/2 GRAMS. Age of first use: 16. Date of Last Use: 07/20/16 Medical History: Asthma, HTN, Syncope history, Sepsis history, Psychiatric History: Patient reprots history of Scvhizoaffective disorder with most recent psychiatric admission on mopre then 10 years ago, [id number] currently taking: Zyprexa 15mg po qhs. Trazodone 100mg po qhs Physical/Sexual Abuse/Trauma History: Denies Additional Comment: Zyprexa 15mg po qhs. Trazodone 100mg po qhs Mental Status Exam - Mental Status Exam Alert and Oriented to: Person Cognitive Function: Fair Patient Appearance: Unkempt Mood: Apprehensive Affect: Mood Congruent Patient Behavior: Cooperative Speech Pattern: Appropriate Voice Loudness: Normal Thought Process: Goal Oriented Thought Disorder: Being Controlled Hallucinations: Denies Suicidal Ideation: Denies Homicidal Ideation: Denies Insight/Judgement: Fair Sleep: Difficulty falling asleep Appetite: Fair Muscle strength/Tone: Normal Gait/Station: Shuffling Additional Comments: Zyprexa 15mg po qhs. Trazodone 100mg po qhs Psychiatric Findings - Problem List ([place] 1, 2,3) (1) Alcohol dependence with uncomplicated withdrawal Current Visit: Yes Status: Acute (2) Cocaine dependence, uncomplicated Current Visit: Yes Status: Acute (3) Nicotine dependence Current Visit: Yes Status: Chronic Qualifiers: Nicotine product type: cigarettes Substance use status: uncomplicated Qualified Code(s): F17.210 - Nicotine dependence, cigarettes, uncomplicated (4) Alcohol dependence Current Visit: No Status: Acute (5) Schizoaffective disorder Current Visit: No Status: Chronic Qualifiers: Schizoaffective disorder type: bipolar Qualified Code(s): F25.0 - Schizoaffective disorder, bipolar type (6) Schizoaffective disorder, bipolar type Current Visit: No Status: Chronic - Initial Treatment Plan Initial Treatment Plan: Zyprexa 15mg po qhs. Trazodone 100mg po qhs
--- NOTE | 2016-07-20 14:10 | EKG ---
Test Reason : Blood Pressure : / mmHG Vent. Rate : 077 BPM Atrial Rate : 077 BPM P-R Int : 128 ms QRS Dur : 106 ms QT Int : 420 ms P-R-T Axes : 077 061 054 degrees QTc Int : 475 ms NORMAL SINUS RHYTHM POSSIBLE LEFT ATRIAL ENLARGEMENT BORDERLINE ECG WHEN COMPARED WITH ECG OF 24-MAY-2016 18:05, NO SIGNIFICANT CHANGE WAS FOUND Confirmed by AXEL HENDERSON MD ([id number]) on 07/20/2016 2:10:21 PM Referred By: Confirmed By:AXEL HENDERSON MD
[2016-07-20 14:18] LABS: HIV 1 & 2 AB NEGATIVE; HIV 1 AGp24 NEGATIVE
[2016-07-20] MEDS: TETRAHYDROZOLINE HCL 1 DROP DROPS OD SCH ×2 (15:48→23:03)
[2016-07-20 17:38] LABS: URINE APPEARANCE CLEAR; URINE BILIRUBIN NEGATIVE (NEGATIVE); URINE BLOOD NEGATIVE (NEGATIVE); URINE COLOR YELLOW; URINE GLUCOSE (UA) NEGATIVE (NEGATIVE); URINE KETONE NEGATIVE (NEGATIVE); URINE LEUK ESTERASE NEGATIVE (NEGATIVE); URINE NITRITE NEGATIVE (NEGATIVE); URINE PROTEIN NEGATIVE (NEGATIVE); URINE UROBILINOGEN NEGATIVE E.U./dl (0.2-1.0)
[2016-07-20] MEDS: NICOTINE POLACRILEX 2 MG GUM BUC PRN (18:52)
[2016-07-20] MEDS: THIAMINE HCL 100 MG TABLET (FP) PO SCH (22:55)
[2016-07-20] MEDS: traZODone HCL 100 MG TABLET (FP) PO SCH ×2 (22:55→23:06)
[2016-07-20] MEDS: OLANZapine 7.5 MG TABLET PO SCH (22:55)
[2016-07-21] MEDS: chlordiazePOXIDE HCL 25 MG CAPSULE PO SCH ×4 (05:22→22:23)
--- NOTE | 2016-07-21 09:47 | PN ---
S CIWA - CIWA Score Nausea/Vomitin Muscle Tremors: 3 Anxiety: 3 Agitation: 3 Paroxysmal Sweats: 1-Minimal Palms Moist Orientation: 0-Oriented Tacttile Disturbances: 1-Very Mild Itch/Numbness Auditory Disturbances: 1-Very Mild Visual Disturbances: 1-Very Mild Sensitivity Headache: 2-Mild CIWA-Ar Total Score: 18 BHS Progress Note (SOAP) Subjective: ALERT,IRRITABLE,ANXIOUS,INTERRUPTED SLEEP,TREMOR Objective: 07/21/16 09:47 Vital Signs Temperature 97.9 F 07/21/16 09:30 Pulse Rate 71 07/21/16 09:30 Respiratory Rate 18 07/21/16 09:30 Blood Pressure 133/76 07/21/16 09:30 O2 Sat by Pulse Oximetry (%) EKG NSR Laboratory Last Values Urine Color Yellow 07/20/16 15:00 Urine Appearance Clear 07/20/16 15:00 Urine pH 5.0 (5.0-8.0) 07/20/16 15:00 Ur Specific [place] >= 1.030 (1.005-1.025) H 07/20/16 15:00 Urine Protein Negative (NEGATIVE) 07/20/16 15:00 Urine Glucose (UA) Negative (NEGATIVE) 07/20/16 15:00 Urine Ketones Negative (NEGATIVE) 07/20/16 15:00 Urine Blood Negative (NEGATIVE) 07/20/16 15:00 Urine Nitrite Negative (NEGATIVE) 07/20/16 15:00 Urine Bilirubin Negative (NEGATIVE) 07/20/16 15:00 Urine Urobilinogen Negative E.U./dl (0.2-1.0) 07/20/16 15:00 Ur Leukocyte Esterase Negative (NEGATIVE) 07/20/16 15:00 HIV 1&2 Antibody Screen Negative 07/20/16 11:10 HIV P24 Antigen Negative 07/20/16 11:10 LABS PENDING Assessment: 07/21/16 09:48 WITHDRAWAL SYMPTOM Plan: CONTINUE DETOX
[2016-07-21 10:03] LABS: MCH 24.1 pg (25.7-33.7); MCHC 32.5 g/dl (32.0-35.9); MEAN CELL VOLUME 74.3 fl (80-96); MEAN PLT VOLUME 7.7 fl (7.5-11.1); PLATELET COUNT 262 K/MM3 (134-434); RDW 17.4 % (11.9-15.9); WHITE BLOOD COUNT 10.9 K/mm3 (4.0-10.0)
[2016-07-21 10:37] LABS: ALBUMIN 4.7 g/dl (3.4-5.0); ALK PHOS 74 U/L (45-117); ANION GAP 10 (8-16); BILIRUBIN,TOTAL 0.7 mg/dL (0.2-1.0); CALCIUM 9.4 mg/dL (8.5-10.1); CO2 27 mmol/L (21-32); COCKROFT - GAULT 94.18; CREATININE 1.2 mg/dL (0.7-1.3); GLUCOSE,RANDOM 84 mg/dL (74-106); SGOT/AST 47 U/L (15-37); SGPT/ALT 41 U/L (12-78)
[2016-07-21] MEDS: PRENATAL VITAMINS W/ FOLIC ACID TABLET (FP) PO SCH (10:55)
[2016-07-21] MEDS: amLODIPine BESYLATE 10 MG TABLET (FP) PO SCH (10:56)
[2016-07-21] MEDS: TETRAHYDROZOLINE HCL 1 DROP DROPS OD SCH ×2 (10:57→22:23)
[2016-07-21] MEDS: NICOTINE POLACRILEX 2 MG GUM BUC PRN ×3 (10:58→22:23)
[2016-07-21] MEDS: OLANZapine 7.5 MG TABLET PO SCH (22:23)
[2016-07-21] MEDS: THIAMINE HCL 100 MG TABLET (FP) PO SCH (22:23)
[2016-07-21] MEDS: traZODone HCL 100 MG TABLET (FP) PO SCH (22:23)
[2016-07-22] MEDS: chlordiazePOXIDE HCL 25 MG CAPSULE PO SCH (05:14)
--- NOTE | 2016-07-22 10:04 | PN ---
S CIWA - CIWA Score Nausea/Vomitin Muscle Tremors: 3 Anxiety: 2 Agitation: 2 Paroxysmal Sweats: 1-Minimal Palms Moist Orientation: 0-Oriented Tacttile Disturbances: 1-Very Mild Itch/Numbness Auditory Disturbances: 1-Very Mild Visual Disturbances: 1-Very Mild Sensitivity Headache: 2-Mild CIWA-Ar Total Score: 16 S Progress Note (SOAP) Subjective: alert,irritable,anxious,interrupted sleep,tremor Objective: 07/22/16 10:03 Vital Signs Temperature 97.3 F L 07/22/16 09:34 Pulse Rate 88 07/22/16 09:34 Respiratory Rate 20 07/22/16 09:34 Blood Pressure 122/76 07/22/16 09:34 O2 Sat by Pulse Oximetry (%) Laboratory Last Values WBC 10.9 K/mm3 (4.0-10.0) H D 07/21/16 06:00 RBC 5.21 M/mm3 (4.00-5.60) 07/21/16 06:00 Hgb 12.6 GM/dL (11.7-16.9) 07/21/16 06:00 Hct 38.7 % (35.4-49) 07/21/16 06:00 MCV 74.3 fl (80-96) L 07/21/16 06:00 MCHC 32.5 g/dl (32.0-35.9) 07/21/16 06:00 RDW 17.4 % (11.9-15.9) H 07/21/16 06:00 Plt Count 262 K/MM3 (134-434) 07/21/16 06:00 MPV 7.7 fl (7.5-11.1) 07/21/16 06:00 Sodium 145 mmol/L (136-145) 07/21/16 06:00 Potassium 4.2 mmol/L (3.5-5.1) 07/21/16 06:00 Chloride 108 mmol/L (98-107) H 07/21/16 06:00 Carbon Dioxide 27 mmol/L (21-32) 07/21/16 06:00 Anion Gap 10 (8-16) 07/21/16 06:00 BUN 22 mg/dL (7-18) H D 07/21/16 06:00 Creatinine 1.2 mg/dL (0.7-1.3) D 07/21/16 06:00 Creat Clearance w eGFR > 60 (>60) 07/21/16 06:00 Random Glucose 84 mg/dL (74-106) 07/21/16 06:00 Calcium 9.4 mg/dL (8.5-10.1) 07/21/16 06:00 Total Bilirubin 0.7 mg/dL (0.2-1.0) 07/21/16 06:00 AST 47 U/L (15-37) H D 07/21/16 06:00 ALT 41 U/L (12-78) 07/21/16 06:00 Alkaline Phosphatase 74 U/L (45-117) 07/21/16 06:00 Total Protein 8.0 g/dl (6.4-8.2) D 07/21/16 06:00 Albumin 4.7 g/dl (3.4-5.0) D 07/21/16 06:00 Urine Color Yellow 07/20/16 15:00 Urine Appearance Clear 07/20/16 15:00 Urine pH 5.0 (5.0-8.0) 07/20/16 15:00 Ur Specific [place] >= 1.030 (1.005-1.025) H 07/20/16 15:00 Urine Protein Negative (NEGATIVE) 07/20/16 15:00 Urine Glucose (UA) Negative (NEGATIVE) 07/20/16 15:00 Urine Ketones Negative (NEGATIVE) 07/20/16 15:00 Urine Blood Negative (NEGATIVE) 07/20/16 15:00 Urine Nitrite Negative (NEGATIVE) 07/20/16 15:00 Urine Bilirubin Negative (NEGATIVE) 07/20/16 15:00 Urine Urobilinogen Negative E.U./dl (0.2-1.0) 07/20/16 15:00 Ur Leukocyte Esterase Negative (NEGATIVE) 07/20/16 15:00 RPR Titer Nonreactive (NONREACTIVE) 07/21/16 06:00 HIV 1&2 Antibody Screen Negative 07/20/16 11:10 HIV P24 Antigen Negative 07/20/16 11:10 Assessment: 07/22/16 10:03 withdrawal symptom Plan: continue detox,encourage oral fluid
[2016-07-22] MEDS: PRENATAL VITAMINS W/ FOLIC ACID TABLET (FP) PO SCH (10:11)
[2016-07-22] MEDS: TETRAHYDROZOLINE HCL 1 DROP DROPS OD SCH ×2 (10:11→22:15)
[2016-07-22] MEDS: chlordiazePOXIDE 5 MG CAPSULE PO SCH ×3 (10:11→22:14)
[2016-07-22] MEDS: amLODIPine BESYLATE 10 MG TABLET (FP) PO SCH (10:11)
[2016-07-22] MEDS: NICOTINE POLACRILEX 2 MG GUM BUC PRN ×3 (10:14→17:42)
[2016-07-22] MEDS: THIAMINE HCL 100 MG TABLET (FP) PO SCH (22:14)
[2016-07-22] MEDS: traZODone HCL 100 MG TABLET (FP) PO SCH (22:14)
[2016-07-22] MEDS: OLANZapine 7.5 MG TABLET PO SCH (22:15)
[2016-07-23] MEDS: chlordiazePOXIDE 5 MG CAPSULE PO SCH (05:00)
[2016-07-23] MEDS: NICOTINE POLACRILEX 2 MG GUM BUC PRN ×3 (06:47→19:52)
[2016-07-23] MEDS: chlordiazePOXIDE HCL 10 MG CAPSULE PO SCH ×3 (10:29→22:06)
[2016-07-23] MEDS: amLODIPine BESYLATE 10 MG TABLET (FP) PO SCH (10:29)
[2016-07-23] MEDS: PRENATAL VITAMINS W/ FOLIC ACID TABLET (FP) PO SCH (10:29)
[2016-07-23] MEDS: TETRAHYDROZOLINE HCL 1 DROP DROPS OD SCH ×2 (10:30→22:07)
--- NOTE | 2016-07-23 11:40 | PN ---
S Progress Note (SOAP) Subjective: ALERT,INTERRUPTED SLEEP,IRRITABLE Objective: 07/23/16 11:39 Vital Signs Temperature 98.4 F 07/23/16 09:42 Pulse Rate 104 H 07/23/16 09:42 Respiratory Rate 16 07/23/16 09:42 Blood Pressure 148/82 07/23/16 09:42 O2 Sat by Pulse Oximetry (%) Assessment: 07/23/16 11:39 WITHDRAWAL SYMPTOM Plan: CONTINUE DETOX,DISCHARGE IN AN
[2016-07-23] MEDS: traZODone HCL 100 MG TABLET (FP) PO SCH (22:06)
[2016-07-23] MEDS: THIAMINE HCL 100 MG TABLET (FP) PO SCH (22:07)
[2016-07-23] MEDS: OLANZapine 7.5 MG TABLET PO SCH (22:07)
[2016-07-24] MEDS: chlordiazePOXIDE HCL 10 MG CAPSULE PO SCH (05:31)
[2016-07-24] MEDS: NICOTINE POLACRILEX 2 MG GUM BUC PRN (05:33)
--- NOTE | 2016-07-24 08:39 | PN ---
S Progress Note (SOAP) Subjective: alert,no complaint Objective: 07/24/16 08:37 Vital Signs Temperature 97.5 F L 07/24/16 06:51 Pulse Rate 82 07/24/16 06:51 Respiratory Rate 18 07/24/16 06:51 Blood Pressure 131/61 07/24/16 06:51 O2 Sat by Pulse Oximetry (%) Assessment: 07/24/16 08:37 detox completed,no withdrawal symptom Plan: discharge today,follow up with after care program as arrangement
--- NOTE | 2016-07-24 08:43 | DS ---
[facility] Detox Discharge Summary Admission Date: 07/20/16 Discharge Date: 07/24/16 - History Present History: Alcohol Dependence, Cocaine Dependence Additional Comments: follow up with after care program as arrangement Pertinent Past History: asthma hypertension nicotine dependence - Physical Exam Results Vital Signs: Vital Signs Temperature 97.5 F L 07/24/16 06:51 Pulse Rate 82 07/24/16 06:51 Respiratory Rate 18 07/24/16 06:51 Blood Pressure 131/61 07/24/16 06:51 O2 Sat by Pulse Oximetry (%) Pertinent Admission Physical Exam Findings: withdrawal symptom - Treatment Hospital Course: Detox Protocol Followed, Detoxed Safely, Responded well, Discharged Condition Good, Rehab Referral Accepted Patient has Accepted [facility] Referral [facility] - Medication Discharge Medications: Ambulatory Orders Olanzapine [Zyprexa -] 15 mg PO HS #30 tablet 05/25/16 Albuterol Sulfate Inhaler - [Ventolin HFA Inhaler -] 2 puff IH Q4H PRN #1 inhaler 06/08/16 Amlodipine Besylate [Norvasc -] 10 mg PO DAILY #30 tablet 06/08/16 Trazodone HCl [Desyrel -] 100 mg PO HS #30 tablet 06/08/16 Olanzapine [Zyprexa -] 15 mg PO HS #30 tablet 07/20/16 Trazodone HCl [Desyrel -] 100 mg PO HS #30 tablet 07/20/16 - Diagnosis (1) Alcohol dependence with uncomplicated withdrawal Current Visit: Yes Status: Acute (2) Cocaine dependence, uncomplicated Current Visit: Yes Status: Acute (3) Asthma Current Visit: Yes Status: Chronic (4) Essential hypertension Current Visit: Yes Status: Chronic (5) Nicotine dependence Current Visit: Yes Status: Chronic Qualifiers: Nicotine product type: cigarettes Substance use status: uncomplicated Qualified Code(s): F17.210 - Nicotine dependence, cigarettes, uncomplicated (6) Syncope Current Visit: No Status: Active - AMA Did Patient Leave Against Medical Advice: No
[2016-07-24 10:12] VITALS: BP 138/73; PULSE 92; TEMP 98.1
== END 2016-07-24 09:10 | disposition home or self-care (01) | DRG 897 ==
LOC: YASAS 08:22 → Y6N 11:24
PROVIDERS: ADMIT Internal Medicine; ATTEND Internal Medicine
PROC: HZ2ZZZZ Detoxification Services for Substance Abuse Treatment (ICD-10-PCS; principal; 2016-07-20)
DX: F19.230 Other psychoactive substance dependence with withdrawal, uncomplicated (principal); F14.20 Cocaine dependence, uncomplicated; F10.230 Alcohol dependence with withdrawal, uncomplicated; F17.210 Nicotine dependence, cigarettes, uncomplicated; F25.0 Schizoaffective disorder, bipolar type; I10 Essential (primary) hypertension; J45.909 Unspecified asthma, uncomplicated; Z86.79 Personal history of other diseases of the circulatory system
CPT/HCPCS: 36415; 80053; 81003; 85027; 86593; 87389; 93005; 93010

== ENCOUNTER 2017-02-19 09:06 | Inpatient (IN) | payer OTHER ==
[2017-02-19 09:42] VITALS: BMI 26.0
--- NOTE | 2017-02-19 13:00 | HP ---
CIWA Score - CIWA Score Nausea/Vomitin-No Nausea/No Vomiting Muscle Tremors: 4-Moderate,w/Arms Extend Anxiety: 4-Mod. Anxious/Guarded Agitation: 4-Moderately Restless Paroxysmal Sweats: 1-Minimal Palms Moist Orientation: 0-Oriented Tacttile Disturbances: 3-Moderate Itch/Numb/Burn Auditory Disturbances: 0-None Visual Disturbances: 0-None Headache: 0-None Present CIWA-Ar Total Score: 16 Admission ROS S - HPI Chief Complaint: WITHDRAWAL SX FROM ALCOHOL Allergies/Adverse Reactions: Allergies Allergy/AdvReac Type Severity Reaction Status Date / Time Sweet Potato Allergy Severe Hives Verified 02/19/17 11:32 No Known Drug Allergies Allergy Verified 02/19/17 11:32 squash Allergy Severe Hives Uncoded 02/19/17 11:32 History of Present Illness: 47 Y/O AA/MALE WITH A HX OF ALCOHOL, COCAINE DEPENDENCE SEEKING DETOX TX. Exam Limitations: No Limitations - Ebola screening Have you traveled outside of the country in the last 21 days: No (N) Have you had contact with anyone from an Ebola affected area: No Have you been sick,other than usual withdrawal symptoms: No Do you have a fever: No - Review of Systems Constitutional: Changes in sleep EENT: reports: Blurred Vision Respiratory: reports: Shortness of Breath ( HX ASTHMA), Wheezing Cardiac: reports: Lightheadedness GI: reports: Poor Fluid Intake : reports: No Symptoms Reported Musculoskeletal: reports: Back Pain, Joint Pain, Muscle Pain Integumentary: reports: Pruritus Neuro: reports: Headache, Dizziness Endocrine: reports: No Symptoms Reported Hematology: reports: No Symptoms Reported Psychiatric: reports: Orientated x3, Depressed Other Systems: Reviewed and Negative Patient History - Patient Medical History Hx Anemia: No Hx Asthma: No Hx Chronic Obstructive Pulmonary Disease (COPD): No Hx Cancer: No Hx Cardiac Disorders: No Hx Congestive Heart Failure: No Hx Hypertension: Yes (ON NORVASC ) Hx Hypercholesterolemia: Yes (no med; DIET CONTROLLED) Hx Pacemaker: No HX Cerebrovascular Accident: No Hx Seizures: No Hx Dementia: No Hx Diabetes: No Hx Gastrointestinal Disorders: No Hx Liver Disease: No Hx Genitourinary Disorders: No Hx Sexually Transmitted Disorders: No (DENIES) Hx Renal Disease (ESRD): No Hx Thyroid Disease: No Hx Human Immunodeficiency Virus (HIV): No (last 03/27 negative hx at [facility]) Hx Hepatitis C: No Hx Depression: Yes (ON ZYPREXA) Hx Suicide Attempt: No Hx Bipolar Disorder: Yes (ON MEDS ) Hx Schizophrenia: No - Patient Surgical History Past Surgical History: Yes Hx Neurologic Surgery: No Hx Cataract Extraction: No Hx Cardiac Surgery: No Hx Lung Surgery: No Hx Breast Surgery: No Hx Breast Biopsy: No Hx Abdominal Surgery: No Hx Appendectomy: No Hx Cholecystectomy: No Hx Genitourinary Surgery: No Hx Section: No Hx Orthopedic Surgery: Yes (left elbow and right wrist) Other Surgical History: sx to left elbow IN 1985,FX OF RIGHT WRIST WITH DEFORMITY 2008 Anesthesia Reaction: No - PPD History Previous Implant?: Yes Documented Results: Negative w/proof Implanted On Prior [facility] Admission?: Yes Date: 05/26/16 Results: 0 MM - Reproductive History Patient is a Female of Child Bearing Age (11 -55 yrs old): No (MALE) - Smoking Cessation Smoking history: Current every day smoker Have you smoked in the past 12 months: Yes Aproximately how many cigarettes per day: 8 Cigars Per Day: 0 Hx Chewing Tobacco Use: No Initiated information on smoking cessation: Yes 'Breaking Loose' booklet given: 02/19/17 - Substance & Tx. History Hx Alcohol Use: Yes (VODKA) Hx Substance Use: Yes (COCAINE) Substance Use Type: Alcohol, Cocaine Hx Substance Use Treatment: Yes (LAST TX AT [facility] DET[facility]) - Substances Abused Alcohol Route: Oral Frequency: Daily Amount used: Vodka(1-2 liters) Age of first use: 13 Date of Last Use: 02/18/17 Cocaine Route: Smoking Frequency: Daily Amount used: $200 Age of first use: 16 Date of Last Use: 02/18/17 Family Disease History - Family Disease History Family Disease History: CA: Father (alcohol), Respiratory: Brother (asthma, drugs and alcohol), Sister, Daughter, Other: Father, Brother Admission Physical Exam S - Vital Signs Vital Signs: Vital Signs - 24 hr 02/19/17 09:38 Temperature 98.1 F Pulse Rate 100 H Respiratory 18 Rate Blood Pressure 148/100 - Physical General Appearance: Yes: Moderate Distress, Irritable, Anxious HEENTM: Yes: EOMI, Normocephalic, AMALIA Respiratory: Yes: Chest Non-Tender, Lungs Clear, Normal Breath Sounds, No Respiratory Distress Neck: Yes: No masses,lesions,Nodules, Supple, Trachea in good position Breast: Yes: Breast Exam Deferred Cardiology: Yes: Regular Rhythm, Regular Rate, S1, S2 Abdominal: Yes: Normal Bowel Sounds, Non Tender, Flat, Soft Genitourinary: Yes: Other (N/C) Back: Yes: Within Normal Limits Musculoskeletal: Yes: full range of Motion, Gait Steady Extremities: Yes: Normal Range of Motion, Non-Tender Neurological: Yes: sfdc consultant II-XII NML intact, Fully Oriented, Alert, Motor Strength 5/5 Integumentary: Yes: Dry, Warm Lymphatic: Yes: Within Normal Limits - Diagnostic (1) Alcohol dependence with uncomplicated withdrawal Current Visit: Yes Status: Acute (2) Cocaine dependence, uncomplicated Current Visit: Yes Status: Acute (3) Asthma Current Visit: Yes Status: Chronic (4) 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 (5) Essential hypertension Current Visit: Yes Status: Chronic (6) Nicotine dependence Current Visit: Yes Status: Acute Qualifiers: Nicotine product type: cigarettes Substance use status: uncomplicated Qualified Code(s): F17.210 - Nicotine dependence, cigarettes, uncomplicated Cleared for Admission [facility] - Detox or Rehab [facility] Level of Care: Medically Managed Detox Regimen/Protocol: Librium [facility] Breath Alcohol Content Breath Alcohol Content: 0.020 Urine Drug Screen - Results Drug Screen Negative: No Urine Drug Screen Results: [place]-Cocaine
[2017-02-19] MEDS ORDERED: MAGNESIUM CITRATE 300 ML BOTTLE PO PRN (13:18)
[2017-02-19] MEDS ORDERED: hydrOXYzine PAMOATE 50 MG CAPSULE (FP) PO PRN (13:18)
[2017-02-19] MEDS ORDERED: MAG HYDROX/AL HYDROX/SIMETH 30 ML UNIT-DOSE CUP PO PRN (13:18)
[2017-02-19] MEDS ORDERED: MAGNESIUM HYDROX 2400MG/30ML ORAL SUSPENSION 30 ML CUP PO PRN (13:18)
[2017-02-19] MEDS ORDERED: MENTHOL/PHENOL 1 EACH UD MM PRN (13:18)
[2017-02-19] MEDS ORDERED: guaiFENesin/D-METHORPHAN HB 10 ML UNIT-DOSE CUPS PO PRN (13:18)
[2017-02-19] MEDS ORDERED: P-EPHED 60MG/TRIPROLIDI 2.5MG TABLET PO PRN (13:18)
[2017-02-19] MEDS ORDERED: LOPERAMIDE HCL 2 MG CAPSULE PO PRN (13:18)
[2017-02-19] MEDS ORDERED: chlordiazePOXIDE HCL 25 MG CAPSULE PO PRN (13:18)
[2017-02-19] MEDS ORDERED: ACETAMINOPHEN 325 MG TABLET (FP) PO PRN (13:18)
[2017-02-19] MEDS ORDERED: IBUPROFEN 400 MG TABLET (FP) PO PRN (13:18)
[2017-02-19] MEDS ORDERED: chlordiazePOXIDE HCL 25 MG CAPSULE PO ONE (14:03)
[2017-02-19] MEDS: VITAMINS A AND D TOPICAL OINTMENT 60 GM TUBE TP SCH ×2 (14:10→22:04)
[2017-02-19 14:28] LABS: HEMATOCRIT 38.3 % (35.4-49); HEMOGLOBIN 12.1 GM/dL (11.7-16.9); MCH 22.7 pg (25.7-33.7); MCHC 31.6 g/dl (32.0-35.9); MEAN PLT VOLUME 7.3 fl (7.5-11.1); PLATELET COUNT 287 K/MM3 (134-434); RBC 5.31 M/mm3 (4.00-5.60); RDW 16.5 % (11.9-15.9); WHITE BLOOD COUNT 10.6 K/mm3 (4.0-10.0)
[2017-02-19 14:30] LABS: ANION GAP 11 (8-16); BLOOD UREA NITROGEN 18 mg/dL (7-18); CHLORIDE 106 mmol/L (98-107); CO2 27 mmol/L (21-32); GLUCOSE,RANDOM 96 mg/dL (74-106); POTASSIUM 4.2 mmol/L (3.5-5.1); SGOT/AST 57 U/L (15-37); SGPT/ALT 42 U/L (12-78); SODIUM 144 mmol/L (136-145); TOT PROT 7.3 g/dl (6.4-8.2)
[2017-02-19 14:31] LABS: ALK PHOS 75 U/L (45-117)
--- NOTE | 2017-02-19 15:21 | CONSULT ---
[facility] Psychiatric Consult - Data Date of interview: 02/19/17 Admission source: [facility] Identifying data: Another admission to [facility] for this 47 y/o AA male seeking detox treatment on for alcohol and cocaine dependence.Patient is ,a father of two,homeless,unemployed and supported on SSI/SSD benefits. Substance Abuse History: Confirmed by patient in this interview.See current [facility] report for details : Smoking history: Current every day smoker. Have you smoked in the past 12 months: Yes. Aproximately how many cigarettes per day: 8. Cigars Per Day: 0. Hx Chewing Tobacco Use: No. Initiated information on smoking cessation: Yes. - Substances Abused. Alcohol. Route: Oral. Frequency: Daily. Amount used: Vodka(1-2 liters). Age of first use: 13. Date of Last Use: 02/18/17. Cocaine. Route: Smoking. Frequency: Daily. Amount used: $200. Age of first use: 16. Date of Last Use: 02/18/17 Medical History: Bronchial asthma,hypertension,hypercholesterolemia and a past history of orthosurgery for fracture of left elbow + right wrist. Psychiatric History: Early onset of motional disturbances (age 13).Reported history of " one or two " psychiatric hospitalizations.Patient indicates that he is known to [facility] in [facility] (1992),[facility].Diagnosed with Schizoaffective Disorder.Endorses treatment maintenance with olanzapine 15 mg/hs.Chronically non adherent to medications.No contact with OPD care provider.Mr Sun continues his pattern of relying on emergency room settings/admissions to detox and rehabilitation facilities for renewal of medications.Last took zyprexa a week ago as per self-report (ran out of medications).Patient requests that zyprexa be included in this current regime of medications.No reported history of suicide attempts. Physical/Sexual Abuse/Trauma History: Patient denies history of abuse. Additional Comment: Urine Drug Screen Results: CHESTER-Cocaine.Noted. Mental Status Exam - Mental Status Exam Alert and Oriented to: Time, Place, Person Cognitive Function: Good Patient Appearance: Well Groomed Mood: Hopeful, Euthymic Affect: Appropriate, Normal Range Patient Behavior: Fatigued, Cooperative Speech Pattern: Clear, Appropriate Voice Loudness: Normal Thought Process: Goal Oriented Thought Disorder: Not Present Hallucinations: Denies Suicidal Ideation: Denies Homicidal Ideation: Denies Insight/Judgement: Poor Sleep: Poorly, Difficulty falling asleep (wants ambien) Appetite: Good Muscle strength/Tone: Normal Gait/Station: Normal Psychiatric Findings - Problem List ([place] 1, 2,3) (1) Alcohol dependence with uncomplicated withdrawal Current Visit: Yes Status: Acute (2) Cocaine dependence, uncomplicated Current Visit: Yes Status: Acute (3) Nicotine dependence Current Visit: Yes Status: Acute Qualifiers: Nicotine product type: cigarettes Substance use status: uncomplicated Qualified Code(s): F17.210 - Nicotine dependence, cigarettes, uncomplicated (4) Schizoaffective disorder Current Visit: Yes Status: Chronic Qualifiers: Schizoaffective disorder type: bipolar Qualified Code(s): F25.0 - Schizoaffective disorder, bipolar type Comment: As per records.Non-compliance with medications. (5) Substance induced mood disorder Current Visit: Yes Status: Suspected (6) Insomnia Current Visit: Yes Status: Acute - Initial Treatment Plan Initial Treatment Plan: Previous records revisited.Sleep hygiene discussed with the patient.Psychoeducation and support provided.Detoxifcation in progress.Medication : zyprexa 15 mg po hs.Ordered.Side effects/benefits dicussed.Patient is made particularly aware of risk of metabolic syndrome.No claimed history of adverse events from olanzapine.Consent (verbal) given for this treatment.Observation.
[2017-02-19] MEDS: chlordiazePOXIDE HCL 25 MG CAPSULE PO SCH ×2 (17:24→22:05)
[2017-02-19] MEDS: NICOTINE POLACRILEX 2 MG GUM BUC PRN (17:25)
[2017-02-19] MEDS: THIAMINE HCL 100 MG TABLET (FP) PO SCH (22:04)
[2017-02-19] MEDS: OLANZapine 7.5 MG TABLET PO SCH (22:04)
[2017-02-20] MEDS: chlordiazePOXIDE HCL 25 MG CAPSULE PO SCH ×4 (06:06→22:03)
[2017-02-20] MEDS: VITAMINS A AND D TOPICAL OINTMENT 60 GM TUBE TP SCH ×2 (10:09→22:02)
[2017-02-20] MEDS: PRENATAL VITAMINS W/ FOLIC ACID TABLET (FP) PO SCH (10:09)
[2017-02-20] MEDS: NICOTINE 14 MG/24 HOURS TOPICAL PATCH TD SCH (10:11)
[2017-02-20] MEDS: NICOTINE POLACRILEX 2 MG GUM BUC PRN ×3 (10:12→20:47)
--- NOTE | 2017-02-20 10:25 | PN ---
S CIWA - CIWA Score Nausea/Vomitin-Mild Nausea/No Vomiting Muscle Tremors: 3 Anxiety: 2 Agitation: 2 Paroxysmal Sweats: 3 Orientation: 0-Oriented Tacttile Disturbances: 1-Very Mild Itch/Numbness Auditory Disturbances: 1-Very Mild Visual Disturbances: 1-Very Mild Sensitivity Headache: 2-Mild CIWA-Ar Total Score: 16 S Progress Note (SOAP) Subjective: Shakes, sweats, generalized pain and anxiety Objective: 02/20/17 10:24 Vital Signs - 8 hr 02/20/17 02/20/17 06:15 09:05 Temperature 96.0 F L 97.2 F L Pulse Rate 66 86 Respiratory 18 18 Rate Blood Pressure 112/72 130/87 Laboratory Last Values WBC 10.6 K/mm3 (4.0-10.0) H 02/19/17 13:25 RBC 5.31 M/mm3 (4.00-5.60) 02/19/17 13:25 Hgb 12.1 GM/dL (11.7-16.9) 02/19/17 13:25 Hct 38.3 % (35.4-49) 02/19/17 13:25 MCV 72.0 fl (80-96) L 02/19/17 13:25 MCH 22.7 pg (25.7-33.7) L 02/19/17 13:25 MCHC 31.6 g/dl (32.0-35.9) L 02/19/17 13:25 RDW 16.5 % (11.9-15.9) H 02/19/17 13:25 Plt Count 287 K/MM3 (134-434) 02/19/17 13:25 MPV 7.3 fl (7.5-11.1) L 02/19/17 13:25 Sodium 144 mmol/L (136-145) 02/19/17 13:25 Potassium 4.2 mmol/L (3.5-5.1) 02/19/17 13:25 Chloride 106 mmol/L (98-107) 02/19/17 13:25 Carbon Dioxide 27 mmol/L (21-32) 02/19/17 13:25 Anion Gap 11 (8-16) 02/19/17 13:25 BUN 18 mg/dL (7-18) 02/19/17 13:25 Creatinine 1.0 mg/dL (0.7-1.3) 02/19/17 13:25 Creat Clearance w eGFR > 60 (>60) 02/19/17 13:25 Random Glucose 96 mg/dL (74-106) 02/19/17 13:25 Calcium 9.0 mg/dL (8.5-10.1) 02/19/17 13:25 Total Bilirubin 1.0 mg/dL (0.2-1.0) D 02/19/17 13:25 AST 57 U/L (15-37) H D 02/19/17 13:25 ALT 42 U/L (12-78) 02/19/17 13:25 Alkaline Phosphatase 75 U/L (45-117) 02/19/17 13:25 Total Protein 7.3 g/dl (6.4-8.2) 02/19/17 13:25 Albumin 4.0 g/dl (3.4-5.0) 02/19/17 13:25 HIV 1&2 Antibody Screen Negative 02/19/17 12:00 HIV P24 Antigen Negative 02/19/17 12:00 Labs noted Assessment: 02/20/17 10:24 Withdrawal sx Plan: Continue detox
[2017-02-20 11:25] LABS: RPR REACTIVE 1:1 (NONREACTIVE)
[2017-02-20] MEDS ORDERED: FLU VACCINE QUAD 60 MCG/0.5 ML (MDV 17-18) IM ONE (12:00)
[2017-02-20 14:28] LABS: TREPONEMA ANTIBODY NON REACTIVE (NONREACTIVE)
--- NOTE | 2017-02-20 17:03 | EKG ---
Test Reason : Blood Pressure : / mmHG Vent. Rate : 085 BPM Atrial Rate : 085 BPM P-R Int : 128 ms QRS Dur : 090 ms QT Int : 376 ms P-R-T Axes : 079 066 058 degrees QTc Int : 447 ms NORMAL SINUS RHYTHM POSSIBLE LEFT ATRIAL ENLARGEMENT BORDERLINE ECG WHEN COMPARED WITH ECG OF 20-JUL-2016 11:19, NO SIGNIFICANT CHANGE WAS FOUND Confirmed by JENNI HERNANDEZ MD ([id number]) on 02/20/2017 5:02:48 PM Referred By: Confirmed By:JENNI HERNANDEZ MD
[2017-02-20] MEDS: THIAMINE HCL 100 MG TABLET (FP) PO SCH (22:03)
[2017-02-20] MEDS: OLANZapine 7.5 MG TABLET PO SCH (22:03)
[2017-02-20 22:55] LABS: URINE APPEARANCE CLEAR; URINE BILIRUBIN NEGATIVE (NEGATIVE); URINE BLOOD NEGATIVE (NEGATIVE); URINE COLOR YELLOW; URINE GLUCOSE (UA) NEGATIVE (NEGATIVE); URINE KETONE NEGATIVE (NEGATIVE); URINE LEUK ESTERASE NEGATIVE (NEGATIVE); URINE NITRITE NEGATIVE (NEGATIVE); URINE PROTEIN NEGATIVE (NEGATIVE)
[2017-02-21] MEDS: chlordiazePOXIDE HCL 25 MG CAPSULE PO SCH ×2 (06:19→10:06)
[2017-02-21] MEDS: NICOTINE POLACRILEX 2 MG GUM BUC PRN ×4 (06:20→17:31)
[2017-02-21] MEDS: PRENATAL VITAMINS W/ FOLIC ACID TABLET (FP) PO SCH (10:05)
[2017-02-21] MEDS: VITAMINS A AND D TOPICAL OINTMENT 60 GM TUBE TP SCH ×2 (10:07→22:04)
[2017-02-21] MEDS: NICOTINE 14 MG/24 HOURS TOPICAL PATCH TD SCH (10:07)
[2017-02-21] MEDS ORDERED: amLODIPine BESYLATE 10 MG TABLET (FP) PO SCH (10:15)
--- NOTE | 2017-02-21 11:30 | PN ---
[facility] CIWA - CIWA Score Nausea/Vomitin Muscle Tremors: 3 Anxiety: 3 Agitation: 3 Paroxysmal Sweats: 1-Minimal Palms Moist Orientation: 0-Oriented Tacttile Disturbances: 0-None Auditory Disturbances: 0-None Visual Disturbances: 0-None Headache: 0-None Present CIWA-Ar Total Score: 13 [facility] Progress Note (SOAP) Subjective: Tremors Sleep disturbance sweats Objective: 02/21/17 11:28 no acute distress noted Laboratory Last Values WBC 10.6 K/mm3 (4.0-10.0) H 02/19/17 13:25 RBC 5.31 M/mm3 (4.00-5.60) 02/19/17 13:25 Hgb 12.1 GM/dL (11.7-16.9) 02/19/17 13:25 Hct 38.3 % (35.4-49) 02/19/17 13:25 MCV 72.0 fl (80-96) L 02/19/17 13:25 MCH 22.7 pg (25.7-33.7) L 02/19/17 13:25 MCHC 31.6 g/dl (32.0-35.9) L 02/19/17 13:25 RDW 16.5 % (11.9-15.9) H 02/19/17 13:25 Plt Count 287 K/MM3 (134-434) 02/19/17 13:25 MPV 7.3 fl (7.5-11.1) L 02/19/17 13:25 Sodium 144 mmol/L (136-145) 02/19/17 13:25 Potassium 4.2 mmol/L (3.5-5.1) 02/19/17 13:25 Chloride 106 mmol/L (98-107) 02/19/17 13:25 Carbon Dioxide 27 mmol/L (21-32) 02/19/17 13:25 Anion Gap 11 (8-16) 02/19/17 13:25 BUN 18 mg/dL (7-18) 02/19/17 13:25 Creatinine 1.0 mg/dL (0.7-1.3) 02/19/17 13:25 Creat Clearance w eGFR > 60 (>60) 02/19/17 13:25 Random Glucose 96 mg/dL (74-106) 02/19/17 13:25 Calcium 9.0 mg/dL (8.5-10.1) 02/19/17 13:25 Total Bilirubin 1.0 mg/dL (0.2-1.0) D 02/19/17 13:25 AST 57 U/L (15-37) H D 02/19/17 13:25 ALT 42 U/L (12-78) 02/19/17 13:25 Alkaline Phosphatase 75 U/L (45-117) 02/19/17 13:25 Total Protein 7.3 g/dl (6.4-8.2) 02/19/17 13:25 Albumin 4.0 g/dl (3.4-5.0) 02/19/17 13:25 Urine Color Yellow 02/20/17 17:14 Urine Appearance Clear 02/20/17 17:14 Urine pH 6.0 (5.0-8.0) 02/20/17 17:14 Ur Specific [place] 1.024 (1.001-1.035) 02/20/17 17:14 Urine Protein Negative (NEGATIVE) 02/20/17 17:14 Urine Glucose (UA) Negative (NEGATIVE) 02/20/17 17:14 Urine Ketones Negative (NEGATIVE) 02/20/17 17:14 Urine Blood Negative (NEGATIVE) 02/20/17 17:14 Urine Nitrite Negative (NEGATIVE) 02/20/17 17:14 Urine Bilirubin Negative (NEGATIVE) 02/20/17 17:14 Urine Urobilinogen 2.0 mg/dL (0.2-1.0) 02/20/17 17:14 Ur Leukocyte Esterase Negative (NEGATIVE) 02/20/17 17:14 RPR Titer Reactive 1:1 (NONREACTIVE) H D 02/19/17 13:25 T.pallidum Ab ([facility]HA) Non reactive (NONREACTIVE) 02/19/17 13:25 HIV 1&2 Antibody Screen Negative 02/19/17 12:00 HIV P24 Antigen Negative 02/19/17 12:00 labs noted, serology noted Assessment: 02/21/17 11:30 withdrawal sx Rpr Titre 1:1,T. pallidium Ab non reactive Plan: continue detox
[2017-02-21] MEDS: chlordiazePOXIDE 5 MG CAPSULE PO SCH ×2 (17:11→22:01)
[2017-02-21] MEDS: THIAMINE HCL 100 MG TABLET (FP) PO SCH (22:01)
[2017-02-21] MEDS: OLANZapine 7.5 MG TABLET PO SCH (22:01)
[2017-02-22] MEDS: chlordiazePOXIDE 5 MG CAPSULE PO SCH (05:12)
[2017-02-22] MEDS: NICOTINE POLACRILEX 2 MG GUM BUC PRN (05:13)
[2017-02-22 09:14] VITALS: BP 137/95; PULSE 100; TEMP 98.5
--- NOTE | 2017-02-22 11:04 | DS ---
[facility] Detox Discharge Summary Admission Date: 02/19/17 Discharge Date: 02/22/17 - History Present History: Alcohol Dependence, Cocaine Dependence Additional Comments: PT DECLINED TO COMPLETE DETOX STATING HE IS LEAVING TO GO TO THE [facility]. ALERT O X 3. NAD. Pertinent Past History: HTN - Physical Exam Results Vital Signs: Vital Signs Temperature 98.5 F 02/22/17 09:13 Pulse Rate 100 H 02/22/17 09:13 Respiratory Rate 20 02/22/17 09:13 Blood Pressure 137/95 02/22/17 09:13 O2 Sat by Pulse Oximetry (%) Pertinent Admission Physical Exam Findings: WITHDRAWAL SX Laboratory Last Values WBC 10.6 K/mm3 (4.0-10.0) H 02/19/17 13:25 RBC 5.31 M/mm3 (4.00-5.60) 02/19/17 13:25 Hgb 12.1 GM/dL (11.7-16.9) 02/19/17 13:25 Hct 38.3 % (35.4-49) 02/19/17 13:25 MCV 72.0 fl (80-96) L 02/19/17 13:25 MCH 22.7 pg (25.7-33.7) L 02/19/17 13:25 MCHC 31.6 g/dl (32.0-35.9) L 02/19/17 13:25 RDW 16.5 % (11.9-15.9) H 02/19/17 13:25 Plt Count 287 K/MM3 (134-434) 02/19/17 13:25 MPV 7.3 fl (7.5-11.1) L 02/19/17 13:25 Sodium 144 mmol/L (136-145) 02/19/17 13:25 Potassium 4.2 mmol/L (3.5-5.1) 02/19/17 13:25 Chloride 106 mmol/L (98-107) 02/19/17 13:25 Carbon Dioxide 27 mmol/L (21-32) 02/19/17 13:25 Anion Gap 11 (8-16) 02/19/17 13:25 BUN 18 mg/dL (7-18) 02/19/17 13:25 Creatinine 1.0 mg/dL (0.7-1.3) 02/19/17 13:25 Creat Clearance w eGFR > 60 (>60) 02/19/17 13:25 Random Glucose 96 mg/dL (74-106) 02/19/17 13:25 Calcium 9.0 mg/dL (8.5-10.1) 02/19/17 13:25 Total Bilirubin 1.0 mg/dL (0.2-1.0) D 02/19/17 13:25 AST 57 U/L (15-37) H D 02/19/17 13:25 ALT 42 U/L (12-78) 02/19/17 13:25 Alkaline Phosphatase 75 U/L (45-117) 02/19/17 13:25 Total Protein 7.3 g/dl (6.4-8.2) 02/19/17 13:25 Albumin 4.0 g/dl (3.4-5.0) 02/19/17 13:25 Urine Color Yellow 02/20/17 17:14 Urine Appearance Clear 02/20/17 17:14 Urine pH 6.0 (5.0-8.0) 02/20/17 17:14 Ur Specific [place] 1.024 (1.001-1.035) 02/20/17 17:14 Urine Protein Negative (NEGATIVE) 02/20/17 17:14 Urine Glucose (UA) Negative (NEGATIVE) 02/20/17 17:14 Urine Ketones Negative (NEGATIVE) 02/20/17 17:14 Urine Blood Negative (NEGATIVE) 02/20/17 17:14 Urine Nitrite Negative (NEGATIVE) 02/20/17 17:14 Urine Bilirubin Negative (NEGATIVE) 02/20/17 17:14 Urine Urobilinogen 2.0 mg/dL (0.2-1.0) 02/20/17 17:14 Ur Leukocyte Esterase Negative (NEGATIVE) 02/20/17 17:14 RPR Titer Reactive 1:1 (NONREACTIVE) H D 02/19/17 13:25 T.pallidum Ab (MHA) Non reactive (NONREACTIVE) 02/19/17 13:25 HIV 1&2 Antibody Screen Negative 02/19/17 12:00 HIV P24 Antigen Negative 02/19/17 12:00 - Treatment Hospital Course: Discharged Condition Good - Medication Discharge Medications: Ambulatory Orders Albuterol Sulfate Inhaler - [Ventolin HFA Inhaler -] 2 puff IH Q4H PRN #1 inhaler 06/08/16 Olanzapine [Zyprexa -] 15 mg PO HS #30 tablet 07/20/16 Amlodipine Besylate [Norvasc -] 10 mg PO DAILY #30 tablet 07/24/16 Olanzapine [Zyprexa -] 15 mg PO HS #30 tablet 02/19/17 - Diagnosis (1) Alcohol dependence with uncomplicated withdrawal Current Visit: Yes Status: Acute (2) Cocaine dependence, uncomplicated Current Visit: Yes Status: Acute (3) Asthma Current Visit: Yes Status: Chronic (4) 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 (5) Essential hypertension Current Visit: Yes Status: Chronic (6) Nicotine dependence Current Visit: Yes Status: Acute Qualifiers: Nicotine product type: cigarettes Substance use status: uncomplicated Qualified Code(s): F17.210 - Nicotine dependence, cigarettes, uncomplicated - AMA Did Patient Leave Against Medical Advice: Yes (AMA)
[2017-02-22] MEDS ORDERED: chlordiazePOXIDE HCL 10 MG CAPSULE PO SCH (17:00)
== END 2017-02-22 09:31 | disposition left against medical advice (07) | DRG 894 ==
LOC: YASAS 09:06 → Y3N 13:53
PROVIDERS: ADMIT Internal Medicine; ATTEND Internal Medicine
PROC: HZ2ZZZZ Detoxification Services for Substance Abuse Treatment (ICD-10-PCS; principal; 2017-02-18)
DX: F19.230 Other psychoactive substance dependence with withdrawal, uncomplicated (principal); F14.20 Cocaine dependence, uncomplicated; F10.230 Alcohol dependence with withdrawal, uncomplicated; F17.210 Nicotine dependence, cigarettes, uncomplicated; F25.0 Schizoaffective disorder, bipolar type; F19.24 Other psychoactive substance dependence with psychoactive substance-induced mood disorder; I10 Essential (primary) hypertension; J45.909 Unspecified asthma, uncomplicated; G47.00 Insomnia, unspecified; Z91.018 Allergy to other foods
CPT/HCPCS: 36415; 80053; 81003; 85027; 86593; 86780; 87389; 93005; 93010

== ENCOUNTER 2017-06-01 13:03 | Inpatient (IN) | payer OTHER ==
[2017-06-01 16:48] VITALS: BMI 23.3
--- NOTE | 2017-06-01 17:30 | HP ---
CIWA Score - CIWA Score Nausea/Vomitin-Mild Nausea/No Vomiting Muscle Tremors: 3 Anxiety: 4-Mod. Anxious/Guarded Agitation: 4-Moderately Restless Paroxysmal Sweats: 1-Minimal Palms Moist Orientation: 0-Oriented Tacttile Disturbances: 1-Very Mild Itch/Numbness Auditory Disturbances: 0-None Visual Disturbances: 0-None Headache: 0-None Present CIWA-Ar Total Score: 14 Admission ROS S - HPI Chief Complaint: ALCOHOL WITHDRAWAL SX Allergies/Adverse Reactions: Allergies Allergy/AdvReac Type Severity Reaction Status Date / Time Sweet Potato Allergy Severe Hives Verified 06/01/17 16:29 No Known Drug Allergies Allergy Verified 06/01/17 16:29 squash Allergy Severe Hives Uncoded 06/01/17 16:29 History of Present Illness: 47 Y/O AA/MALE WITH A HX OF ALCOHOL AND CRACK DEPENDENCE SEEKING DETOX [place]. Exam Limitations: No Limitations - Ebola screening Have you traveled outside of the country in the last 21 days: No Have you had contact with anyone from an Ebola affected area: No Have you been sick,other than usual withdrawal symptoms: No - Review of Systems Constitutional: Loss of Appetite, Night Sweats, Changes in sleep, Unintentional Wgt. Loss EENT: reports: Blurred Vision (RIGHT EYE), Nose Congestion, Dental Problems ( MISSING TEETH) Respiratory: reports: Shortness of Breath, Wheezing (HX ASTHMA) Cardiac: reports: No Symptoms Reported GI: reports: Diarrhea, Nausea, Poor Appetite, Poor Fluid Intake, Vomiting, Indigestion : reports: No Symptoms Reported Musculoskeletal: reports: No Symptoms Reported Integumentary: reports: Dryness Neuro: reports: Headache, Tremors, Unsteady Gait, Other (BLACKOUTS) Endocrine: reports: No Symptoms Reported Hematology: reports: No Symptoms Reported Psychiatric: reports: Orientated x3, Anxious, Depressed Other Systems: Reviewed and Negative Patient History - Patient Medical History Hx Anemia: No Hx Asthma: Yes (MDI) Hx Chronic Obstructive Pulmonary Disease (COPD): No Hx Cancer: No Hx Cardiac Disorders: No Hx Congestive Heart Failure: No Hx Hypertension: Yes (ON NORVASC ) Hx Hypercholesterolemia: Yes (no med; DIET CONTROLLED) Hx Pacemaker: No HX Cerebrovascular Accident: No Hx Seizures: No Hx Dementia: No Hx Diabetes: No Hx Gastrointestinal Disorders: No Hx Liver Disease: No Hx Genitourinary Disorders: No Hx Sexually Transmitted Disorders: No (DENIES) Hx Renal Disease (ESRD): No Hx Thyroid Disease: No Hx Human Immunodeficiency Virus (HIV): No (last 03/27 negative hx at [facility]) Hx Hepatitis C: No Hx Depression: Yes (ON ZYPREXA) Hx Suicide Attempt: No (DENIES) Hx Bipolar Disorder: Yes (ON MEDS ) Hx Schizophrenia: Yes (SCHIZOAFFECTIVE) - Patient Surgical History Past Surgical History: Yes Hx Neurologic Surgery: No Hx Cataract Extraction: No Hx Cardiac Surgery: No Hx Lung Surgery: No Hx Breast Surgery: No Hx Breast Biopsy: No Hx Abdominal Surgery: No Hx Appendectomy: No Hx Cholecystectomy: No Hx Genitourinary Surgery: No Hx Section: No Hx Orthopedic Surgery: Yes (left elbow and right wrist) Other Surgical History: sx to left elbow [place] 1985,FX OF RIGHT WRIST WITH DEFORMITY 2008 Anesthesia Reaction: No - PPD History Previous Implant?: Yes Documented Results: Negative w/proof Date: 05/26/16 Results: 0 MM - Smoking Cessation Smoking history: Current every day smoker Have you smoked in the past 12 months: Yes Aproximately how many cigarettes per day: 8 Cigars Per Day: 0 Hx Chewing Tobacco Use: No Initiated information on smoking cessation: Yes 'Breaking Loose' booklet given: 06/01/17 - Substances Abused Alcohol Route: Oral Frequency: Daily Amount used: liquor- 1 litre Age of first use: 13 Date of Last Use: 06/01/17 Crack Route: Smoking Frequency: Daily Amount used: $50 worth Age of first use: 16 Date of Last Use: 05/31/17 Family Disease History - Family Disease History Family Disease History: [place]: Father (alcohol), Respiratory: Brother (asthma, drugs and alcohol), Sister, Daughter, Other: Father, Brother Admission Physical Exam S - Vital Signs Vital Signs: Vital Signs - 24 hr 06/01/17 16:45 Temperature 97.2 F L Pulse Rate 86 Respiratory 20 Rate Blood Pressure 158/88 - Physical General Appearance: Yes: Moderate Distress, Irritable, Anxious HEENTM: Yes: EOMI, Normocephalic, AMALIA, Pharynx Normal, Nasal Congestion Respiratory: Yes: Chest Non-Tender, Lungs Clear, Normal Breath Sounds, No Respiratory Distress Neck: Yes: Supple, Trachea in good position Breast: Yes: Breast Exam Deferred Cardiology: Yes: Regular Rhythm, Regular Rate, S1, S2 Abdominal: Yes: Normal Bowel Sounds, Non Tender, Flat, Soft Genitourinary: Yes: Other (N/C) Back: Yes: Within Normal Limits Musculoskeletal: Yes: full range of Motion, Gait Steady Extremities: Yes: Normal Range of Motion, Non-Tender Neurological: Yes: hammer driver II-XII NML intact, Fully Oriented, Alert, Motor Strength 5/5 Integumentary: Yes: Dry, Warm Lymphatic: Yes: Within Normal Limits - Diagnostic (1) Alcohol dependence with uncomplicated withdrawal Current Visit: Yes Status: Acute (2) Cocaine dependence, uncomplicated Current Visit: Yes Status: Acute (3) Insomnia Current Visit: Yes Status: Acute (4) Nicotine dependence Current Visit: Yes Status: Acute Qualifiers: Nicotine product type: cigarettes Substance use status: in withdrawal Qualified Code(s): F17.213 - Nicotine dependence, cigarettes, with withdrawal (5) Asthma Current Visit: Yes Status: Chronic (6) Essential hypertension Current Visit: Yes Status: Chronic Cleared for Admission [facility] - Detox or Rehab [facility] Level of Care: Medically Managed Detox Regimen/Protocol: Librium [facility] Breath Alcohol Content Breath Alcohol Content: 0 Urine Drug Screen - Results Drug Screen Negative: No Urine Drug Screen Results: CHESTER-Cocaine, BZO-Benzodiazepines
[2017-06-01] MEDS ORDERED: MAGNESIUM CITRATE 300 ML BOTTLE PO PRN (17:34)
[2017-06-01] MEDS ORDERED: MAG HYDROX/AL HYDROX/SIMETH 30 ML UNIT-DOSE CUP PO PRN (17:34)
[2017-06-01] MEDS ORDERED: P-EPHED 60MG/TRIPROLIDI 2.5MG TABLET PO PRN (17:34)
[2017-06-01] MEDS ORDERED: guaiFENesin/D-METHORPHAN HB 10 ML UNIT-DOSE CUPS PO PRN (17:34)
[2017-06-01] MEDS ORDERED: chlordiazePOXIDE HCL 25 MG CAPSULE PO PRN (17:34)
[2017-06-01] MEDS ORDERED: LOPERAMIDE HCL 2 MG CAPSULE PO PRN (17:34)
[2017-06-01] MEDS ORDERED: IBUPROFEN 400 MG TABLET (FP) PO PRN (17:34)
[2017-06-01] MEDS ORDERED: MENTHOL/PHENOL 1 EACH UD MM PRN (17:34)
[2017-06-01] MEDS ORDERED: ACETAMINOPHEN 325 MG TABLET (FP) PO PRN (17:34)
[2017-06-01] MEDS ORDERED: MAGNESIUM HYDROX 2400MG/30ML ORAL SUSPENSION 30 ML CUP PO PRN (17:34)
[2017-06-01] MEDS ORDERED: chlordiazePOXIDE HCL 25 MG CAPSULE PO ONE (18:15)
[2017-06-01] MEDS: NICOTINE 14 MG/24 HOURS TOPICAL PATCH TD SCH (19:18)
[2017-06-01] MEDS ORDERED: MELATONIN 5 MG TABLETS PO PRN (22:00)
[2017-06-01] MEDS: THIAMINE HCL 100 MG TABLET (FP) PO SCH (23:18)
[2017-06-01] MEDS: chlordiazePOXIDE HCL 25 MG CAPSULE PO SCH (23:18)
[2017-06-02] MEDS: chlordiazePOXIDE HCL 25 MG CAPSULE PO SCH ×4 (05:56→22:30)
[2017-06-02 06:17] LABS: URINE APPEARANCE SLCLOUDY; URINE BILIRUBIN NEGATIVE (<2.0 mg/dL); URINE COLOR YELLOW; URINE GLUCOSE (UA) NEGATIVE (NEGATIVE); URINE KETONE NEGATIVE (NEGATIVE); URINE LEUK ESTERASE NEGATIVE (NEGATIVE); URINE NITRITE NEGATIVE (NEGATIVE); URINE PROTEIN NEGATIVE (NEGATIVE)
[2017-06-02 10:14] LABS: HEMOGLOBIN 12.6 GM/dL (11.7-16.9); MCH 24.1 pg (25.7-33.7); MCHC 32.3 g/dl (32.0-35.9); MEAN CELL VOLUME 74.6 fl (80-96); MEAN PLT VOLUME 7.5 fl (7.5-11.1); PLATELET COUNT 340 K/MM3 (134-434); RBC 5.23 M/mm3 (4.00-5.60); RDW 17.1 % (11.9-15.9); WHITE BLOOD COUNT 6.9 K/mm3 (4.0-10.0)
[2017-06-02 10:30] LABS: CHLORIDE 110 mmol/L (98-107); SODIUM 143 mmol/L (136-145)
[2017-06-02] MEDS: NICOTINE 14 MG/24 HOURS TOPICAL PATCH TD SCH (10:33)
[2017-06-02] MEDS: PRENATAL VITAMINS W/ FOLIC ACID TABLET (FP) PO SCH (10:33)
[2017-06-02] MEDS ORDERED: ALBUTEROL SO4 18 GM HFA INHALER IH PRN (10:35)
[2017-06-02] MEDS ORDERED: amLODIPine BESYLATE 10 MG TABLET (FP) PO ONE (10:36)
[2017-06-02 10:37] LABS: ALBUMIN 3.4 g/dl (3.4-5.0); ALK PHOS 63 U/L (45-117); ANION GAP 7 (8-16); BILIRUBIN,TOTAL 0.3 mg/dL (0.2-1.0); BLOOD UREA NITROGEN 10 mg/dL (7-18); CALCIUM 8.6 mg/dL (8.5-10.1); CO2 26 mmol/L (21-32); CREATININE 1.1 mg/dL (0.7-1.3); GLUCOSE,RANDOM 74 mg/dL (74-106); SGOT/AST 28 U/L (15-37); SGPT/ALT 32 U/L (12-78); TOT PROT 6.3 g/dl (6.4-8.2)
[2017-06-02 11:22] LABS: RPR REACTIVE 1:1 (NONREACTIVE)
--- NOTE | 2017-06-02 11:31 | EKG ---
Test Reason : Blood Pressure : / mmHG Vent. Rate : 072 BPM Atrial Rate : 072 BPM P-R Int : 136 ms QRS Dur : 092 ms QT Int : 410 ms P-R-T Axes : 074 070 066 degrees QTc Int : 448 ms NORMAL SINUS RHYTHM WITH SINUS ARRHYTHMIA NORMAL ECG WHEN COMPARED WITH ECG OF 19-FEB-2017 15:18, NO SIGNIFICANT CHANGE WAS FOUND Confirmed by RACHAEL KNOTT, MICHELA ([id number]) on 06/02/2017 11:31:19 AM Referred By: Confirmed By:MICHELA CANO MD
--- NOTE | 2017-06-02 11:42 | PN ---
[facility] CIWA - CIWA Score Nausea/Vomitin-No Nausea/No Vomiting Muscle Tremors: 4-Moderate,w/Arms Extend Anxiety: 4-Mod. Anxious/Guarded Agitation: 4-Moderately Restless Paroxysmal Sweats: 1-Minimal Palms Moist Orientation: 0-Oriented Tacttile Disturbances: 0-None Auditory Disturbances: 0-None Visual Disturbances: 0-None Headache: 0-None Present CIWA-Ar Total Score: 13 S Progress Note (SOAP) Subjective: ANXIETY,SWEATS,TREMORS,INTERMITTENT SLEEP. Objective: 06/02/17 11:41 Vital Signs Temperature 97.4 F L 06/02/17 10:14 Pulse Rate 86 06/02/17 10:14 Respiratory Rate 18 06/02/17 10:14 Blood Pressure 140/79 06/02/17 10:14 O2 Sat by Pulse Oximetry (%) Laboratory Last Values WBC 6.9 K/mm3 (4.0-10.0) D 06/02/17 07:30 RBC 5.23 M/mm3 (4.00-5.60) 06/02/17 07:30 Hgb 12.6 GM/dL (11.7-16.9) 06/02/17 07:30 Hct 39.0 % (35.4-49) 06/02/17 07:30 MCV 74.6 fl (80-96) L 06/02/17 07:30 MCH 24.1 pg (25.7-33.7) L 06/02/17 07:30 MCHC 32.3 g/dl (32.0-35.9) 06/02/17 07:30 RDW 17.1 % (11.9-15.9) H 06/02/17 07:30 Plt Count 340 K/MM3 (134-434) 06/02/17 07:30 MPV 7.5 fl (7.5-11.1) 06/02/17 07:30 Sodium 143 mmol/L (136-145) 06/02/17 07:30 Potassium 4.0 mmol/L (3.5-5.1) 06/02/17 07:30 Chloride 110 mmol/L (98-107) H 06/02/17 07:30 Carbon Dioxide 26 mmol/L (21-32) 06/02/17 07:30 Anion Gap 7 (8-16) L 06/02/17 07:30 BUN 10 mg/dL (7-18) D 06/02/17 07:30 Creatinine 1.1 mg/dL (0.7-1.3) 06/02/17 07:30 Creat Clearance w eGFR > 60 (>60) 06/02/17 07:30 Random Glucose 74 mg/dL (74-106) D 06/02/17 07:30 Calcium 8.6 mg/dL (8.5-10.1) 06/02/17 07:30 Total Bilirubin 0.3 mg/dL (0.2-1.0) D 06/02/17 07:30 AST 28 U/L (15-37) D 06/02/17 07:30 ALT 32 U/L (12-78) D 06/02/17 07:30 Alkaline Phosphatase 63 U/L (45-117) 06/02/17 07:30 Total Protein 6.3 g/dl (6.4-8.2) L 06/02/17 07:30 Albumin 3.4 g/dl (3.4-5.0) 06/02/17 07:30 Urine Color Yellow 06/01/17 22:21 Urine Appearance Slcloudy 06/01/17 22:21 Urine pH 5.0 (5.0-8.0) 06/01/17 22:21 Ur Specific [place] 1.021 (1.001-1.035) 06/01/17 22:21 Urine Protein Negative (NEGATIVE) 06/01/17 22:21 Urine Glucose (UA) Negative (NEGATIVE) 06/01/17 22:21 Urine Ketones Negative (NEGATIVE) 06/01/17 22:21 Urine Blood Negative (NEGATIVE) 06/01/17 22:21 Urine Nitrite Negative (NEGATIVE) 06/01/17 22:21 Urine Bilirubin Negative (<2.0 mg/dL) 06/01/17 22:21 Urine Urobilinogen 2.0 mg/dL (0.2-1.0) 06/01/17 22:21 Ur Leukocyte Esterase Negative (NEGATIVE) 06/01/17 22:21 RPR Titer Reactive 1:1 (NONREACTIVE) H 06/02/17 07:30 HIV 1&2 Antibody Screen Negative 06/02/17 07:30 HIV P24 Antigen Negative 06/02/17 07:30 PREVIOUSLY NONREACTIVE ON 07/21/16. THIS ADMISSION [facility] RESULT IS PENDING. 06/02/17 14:14 UPDATE [facility] RESULT NONREACTIVE BELOW Laboratory Tests 06/01/17 06/02/17 06/02/17 22:21 07:30 07:30 WBC 6.9 D RBC 5.23 Hgb 12.6 Hct 39.0 MCV 74.6 L MCH 24.1 L MCHC 32.3 RDW 17.1 H Plt Count 340 MPV 7.5 Sodium Potassium Chloride Carbon Dioxide Anion Gap BUN Creatinine Creat Clearance w eGFR Random Glucose Calcium Total Bilirubin AST ALT Alkaline Phosphatase Total Protein Albumin Urine Color Yellow Urine Appearance Slcloudy Urine pH 5.0 Ur Specific [place] 1.021 Urine Protein Negative Urine Glucose (UA) Negative Urine Ketones Negative Urine Blood Negative Urine Nitrite Negative Urine Bilirubin Negative Urine Urobilinogen 2.0 Ur Leukocyte Esterase Negative RPR Titer T.pallidum Ab (A) HIV 1&2 Antibody Screen Negative HIV P24 Antigen Negative 06/02/17 06/02/17 07:30 07:30 WBC RBC Hgb Hct MCV MCH MCHC RDW Plt Count MPV Sodium 143 Potassium 4.0 Chloride 110 H Carbon Dioxide 26 Anion Gap 7 L BUN 10 D Creatinine 1.1 Creat Clearance w eGFR > 60 Random Glucose 74 D Calcium 8.6 Total Bilirubin 0.3 D AST 28 D ALT 32 D Alkaline Phosphatase 63 Total Protein 6.3 L Albumin 3.4 Urine Color Urine Appearance Urine pH Ur Specific [place] Urine Protein Urine Glucose (UA) Urine Ketones Urine Blood Urine Nitrite Urine Bilirubin Urine Urobilinogen Ur Leukocyte Esterase RPR Titer Reactive 1:1 H T.pallidum Ab (A) Non reactive HIV 1&2 Antibody Screen HIV P24 Antigen Assessment: 06/02/17 11:41 WITHDRAWAL SX Plan: CONTINUE DETOX
[2017-06-02 14:05] LABS: TREPONEMA ANTIBODY NON REACTIVE (NONREACTIVE)
--- NOTE | 2017-06-02 15:50 | CONSULT ---
[facility] Psychiatric Consult - Data Date of interview: 06/02/17 Admission source: [facility] Identifying data: This is one of several admissions to [facility] for this 47 y/ o AA male seeking detox treatment on for alcohol and cocaine (crack) dependence.Patient is ,a father of two,homeless,unemployed and supported on SSI/SSD benefits. Substance Abuse History: Discussed with patient.Confirmed.Details in current [facility] report as follows : Smoking history: Current every day smoker. Have you smoked in the past 12 months: Yes. Aproximately how many cigarettes per day: 8. Cigars Per Day: 0. Hx Chewing Tobacco Use: No. Initiated information on smoking cessation: Yes. 'Breaking Loose' booklet given: 06/01/17. - Substances Abused. Alcohol. Route: Oral. Frequency: Daily. Amount used: liquor- 1 litre. Age of first use: 13. Date of Last Use: 06/01/17. Crack. Route: Smoking. Frequency: Daily. Amount used: $50 worth. Age of first use : 16. Date of Last Use: 05/31/17 Medical History: No changes in medical profile since encounter of February 2017 : bronchial asthma,hypertension,hypercholesterolemia and a past history of orthosurgery for fracture of left elbow + right wrist. Psychiatric History: Extensive history of mental illness.Early onset of psychiatric disturbances (age 13).Patient admits to a history of 3-5 psychiatric hospitalizations ([facility] in [facility] ( 1992),[facility] and [facility]).Diagnosed with Schizoaffective Disorder. Maintained on olanzapine 15 mg/hs.Chronically non adherent to medications.Mr Sun indicates that he gets his OPD care at [facility] mental health clinic.No reported history of suicide attempts. Physical/Sexual Abuse/Trauma History: Patient denies. Additional Comment: Urine Drug Screen Results: CHESTER-Cocaine, BZO- Benzodiazepines.Noted. Mental Status Exam - Mental Status Exam Alert and Oriented to: Time, Place, Person Cognitive Function: Good Patient Appearance: Unkempt, Disheveled Mood: Hopeful, Euthymic Affect: Appropriate, Normal Range Patient Behavior: Appropriate, Cooperative Speech Pattern: Clear Voice Loudness: Normal Thought Process: Goal Oriented Thought Disorder: Not Present Hallucinations: Denies Suicidal Ideation: Denies Homicidal Ideation: Denies Insight/Judgement: Poor Sleep: Well Appetite: Good Muscle strength/Tone: Normal Gait/Station: Normal Psychiatric Findings - Problem List ([place] 1, 2,3) (1) Alcohol dependence with uncomplicated withdrawal Current Visit: Yes Status: Acute (2) Cocaine dependence, uncomplicated Current Visit: Yes Status: Acute (3) Nicotine dependence Current Visit: Yes Status: Acute Qualifiers: Nicotine product type: cigarettes Substance use status: in withdrawal Qualified Code(s): F17.213 - Nicotine dependence, cigarettes, with withdrawal (4) Schizoaffective disorder Current Visit: Yes Status: Chronic Qualifiers: Schizoaffective disorder type: bipolar Qualified Code(s): F25.0 - Schizoaffective disorder, bipolar type Comment: As per records.Non-compliance with medications. (5) Insomnia Current Visit: Yes Status: Acute - Initial Treatment Plan Initial Treatment Plan: Psychoeducation.Sleep hygiene.Detoxification in progress.Zyprexa 15 mg po hs.Side effects/benefits discussed with the patient.Mr Sun agrees with this plan of care.Observation.
[2017-06-02] MEDS: NICOTINE POLACRILEX 2 MG GUM BC PRN ×2 (17:23→22:31)
[2017-06-02] MEDS: THIAMINE HCL 100 MG TABLET (FP) PO SCH (22:30)
[2017-06-02] MEDS: OLANZapine 7.5 MG TABLET PO SCH (22:30)
[2017-06-03] MEDS: chlordiazePOXIDE HCL 25 MG CAPSULE PO SCH ×3 (05:47→17:10)
[2017-06-03] MEDS: amLODIPine BESYLATE 10 MG TABLET (FP) PO SCH (10:20)
[2017-06-03] MEDS: PRENATAL VITAMINS W/ FOLIC ACID TABLET (FP) PO SCH (10:20)
[2017-06-03] MEDS: NICOTINE POLACRILEX 2 MG GUM BC PRN ×3 (10:21→22:18)
[2017-06-03] MEDS: NICOTINE 14 MG/24 HOURS TOPICAL PATCH TD SCH (10:21)
--- NOTE | 2017-06-03 12:40 | PN ---
[facility] CIWA - CIWA Score Nausea/Vomitin-No Nausea/No Vomiting Muscle Tremors: 4-Moderate,w/Arms Extend Anxiety: 4-Mod. Anxious/Guarded Agitation: 4-Moderately Restless Paroxysmal Sweats: 1-Minimal Palms Moist Orientation: 0-Oriented Tacttile Disturbances: 0-None Auditory Disturbances: 0-None Visual Disturbances: 0-None Headache: 0-None Present CIWA-Ar Total Score: 13 S Progress Note (SOAP) Subjective: ANXIETY,SWEATS,TREMORS, FATIGUE. Objective: 06/03/17 12:39 Vital Signs Temperature 97.1 F L 06/03/17 09:23 Pulse Rate 93 H 06/03/17 09:23 Respiratory Rate 20 06/03/17 09:23 Blood Pressure 133/84 06/03/17 09:23 O2 Sat by Pulse Oximetry (%) Laboratory Tests 06/01/17 06/02/17 06/02/17 22:21 07:30 07:30 WBC 6.9 D RBC 5.23 Hgb 12.6 Hct 39.0 MCV 74.6 L MCH 24.1 L MCHC 32.3 RDW 17.1 H Plt Count 340 MPV 7.5 Sodium Potassium Chloride Carbon Dioxide Anion Gap BUN Creatinine Creat Clearance w eGFR Random Glucose Calcium Total Bilirubin AST ALT Alkaline Phosphatase Total Protein Albumin Urine Color Yellow Urine Appearance Slcloudy Urine pH 5.0 Ur Specific [place] 1.021 Urine Protein Negative Urine Glucose (UA) Negative Urine Ketones Negative Urine Blood Negative Urine Nitrite Negative Urine Bilirubin Negative Urine Urobilinogen 2.0 Ur Leukocyte Esterase Negative RPR Titer T.pallidum Ab ([facility]) HIV 1&2 Antibody Screen Negative HIV P24 Antigen Negative 06/02/17 06/02/17 07:30 07:30 WBC RBC Hgb Hct MCV MCH MCHC RDW Plt Count MPV Sodium 143 Potassium 4.0 Chloride 110 H Carbon Dioxide 26 Anion Gap 7 L BUN 10 D Creatinine 1.1 Creat Clearance w eGFR > 60 Random Glucose 74 D Calcium 8.6 Total Bilirubin 0.3 D AST 28 D ALT 32 D Alkaline Phosphatase 63 Total Protein 6.3 L Albumin 3.4 Urine Color Urine Appearance Urine pH Ur Specific [place] Urine Protein Urine Glucose (UA) Urine Ketones Urine Blood Urine Nitrite Urine Bilirubin Urine Urobilinogen Ur Leukocyte Esterase RPR Titer Reactive 1:1 H T.pallidum Ab ([facility]) Non reactive HIV 1&2 Antibody Screen HIV P24 Antigen Assessment: 06/03/17 12:40 WITHDRAWAL SX Plan: CONTINUE DETOX
[2017-06-03] MEDS: OLANZapine 7.5 MG TABLET PO SCH (22:17)
[2017-06-03] MEDS: THIAMINE HCL 100 MG TABLET (FP) PO SCH (22:17)
[2017-06-03] MEDS: chlordiazePOXIDE 5 MG CAPSULE PO SCH (22:17)
[2017-06-04] MEDS: chlordiazePOXIDE 5 MG CAPSULE PO SCH ×3 (06:38→16:54)
[2017-06-04] MEDS: NICOTINE 14 MG/24 HOURS TOPICAL PATCH TD SCH (10:10)
[2017-06-04] MEDS: PRENATAL VITAMINS W/ FOLIC ACID TABLET (FP) PO SCH (10:10)
[2017-06-04] MEDS: amLODIPine BESYLATE 10 MG TABLET (FP) PO SCH (10:10)
[2017-06-04] MEDS: NICOTINE POLACRILEX 2 MG GUM BC PRN ×3 (10:11→22:18)
--- NOTE | 2017-06-04 10:43 | PN ---
S Progress Note (SOAP) Subjective: ALERT O X 3. OOB AMBULATING ON HALLWAY WITH STEADY GAIT. SLIGHT ANXIETY; FATIGUE. Objective: 06/04/17 10:42 Vital Signs Temperature 98.1 F 06/04/17 09:07 Pulse Rate 104 H 06/04/17 09:07 Respiratory Rate 20 06/04/17 09:07 Blood Pressure 139/92 06/04/17 09:07 O2 Sat by Pulse Oximetry (%) Laboratory Last Values WBC 6.9 K/mm3 (4.0-10.0) D 06/02/17 07:30 RBC 5.23 M/mm3 (4.00-5.60) 06/02/17 07:30 Hgb 12.6 GM/dL (11.7-16.9) 06/02/17 07:30 Hct 39.0 % (35.4-49) 06/02/17 07:30 MCV 74.6 fl (80-96) L 06/02/17 07:30 MCH 24.1 pg (25.7-33.7) L 06/02/17 07:30 MCHC 32.3 g/dl (32.0-35.9) 06/02/17 07:30 RDW 17.1 % (11.9-15.9) H 06/02/17 07:30 Plt Count 340 K/MM3 (134-434) 06/02/17 07:30 MPV 7.5 fl (7.5-11.1) 06/02/17 07:30 Sodium 143 mmol/L (136-145) 06/02/17 07:30 Potassium 4.0 mmol/L (3.5-5.1) 06/02/17 07:30 Chloride 110 mmol/L (98-107) H 06/02/17 07:30 Carbon Dioxide 26 mmol/L (21-32) 06/02/17 07:30 Anion Gap 7 (8-16) L 06/02/17 07:30 BUN 10 mg/dL (7-18) D 06/02/17 07:30 Creatinine 1.1 mg/dL (0.7-1.3) 06/02/17 07:30 Creat Clearance w eGFR > 60 (>60) 06/02/17 07:30 Random Glucose 74 mg/dL (74-106) D 06/02/17 07:30 Calcium 8.6 mg/dL (8.5-10.1) 06/02/17 07:30 Total Bilirubin 0.3 mg/dL (0.2-1.0) D 06/02/17 07:30 AST 28 U/L (15-37) D 06/02/17 07:30 ALT 32 U/L (12-78) D 06/02/17 07:30 Alkaline Phosphatase 63 U/L (45-117) 06/02/17 07:30 Total Protein 6.3 g/dl (6.4-8.2) L 06/02/17 07:30 Albumin 3.4 g/dl (3.4-5.0) 06/02/17 07:30 Urine Color Yellow 06/01/17 22:21 Urine Appearance Slcloudy 06/01/17 22:21 Urine pH 5.0 (5.0-8.0) 06/01/17 22:21 Ur Specific [place] 1.021 (1.001-1.035) 06/01/17 22:21 Urine Protein Negative (NEGATIVE) 06/01/17 22:21 Urine Glucose (UA) Negative (NEGATIVE) 06/01/17 22:21 Urine Ketones Negative (NEGATIVE) 06/01/17 22:21 Urine Blood Negative (NEGATIVE) 06/01/17 22:21 Urine Nitrite Negative (NEGATIVE) 06/01/17 22:21 Urine Bilirubin Negative (<2.0 mg/dL) 06/01/17 22:21 Urine Urobilinogen 2.0 mg/dL (0.2-1.0) 06/01/17 22:21 Ur Leukocyte Esterase Negative (NEGATIVE) 06/01/17 22:21 RPR Titer Reactive 1:1 (NONREACTIVE) H 06/02/17 07:30 T.pallidum Ab ([facility]) Non reactive (NONREACTIVE) 06/02/17 07:30 HIV 1&2 Antibody Screen Negative 06/02/17 07:30 HIV P24 Antigen Negative 06/02/17 07:30 Assessment: 06/04/17 10:43 WITHDRAWAL SX Plan: CONTINUE DETOX INCREASE PO FLUIDS.
[2017-06-04] MEDS: THIAMINE HCL 100 MG TABLET (FP) PO SCH (22:17)
[2017-06-04] MEDS: chlordiazePOXIDE HCL 10 MG CAPSULE PO SCH (22:17)
[2017-06-04] MEDS: OLANZapine 7.5 MG TABLET PO SCH (22:17)
[2017-06-05] MEDS: chlordiazePOXIDE HCL 10 MG CAPSULE PO SCH (05:39)
[2017-06-05] MEDS: NICOTINE POLACRILEX 2 MG GUM BC PRN (05:40)
[2017-06-05 06:25] VITALS: BP 137/86; PULSE 79; TEMP 96.1
--- NOTE | 2017-06-05 21:39 | PN ---
[facility] Progress Note (SOAP) Subjective: Patient denies current Detox symptoms and reports that he feels well overall. Objective: PATIENT A & O X 3, OBSERVED AMBULATING ON UNIT. NO ACUTE DISTRESS. 06/05/17 21:38 Vital Signs Temperature 96.1 F L 06/05/17 06:25 Pulse Rate 79 06/05/17 06:25 Respiratory Rate 18 06/05/17 06:25 Blood Pressure 137/86 06/05/17 06:25 O2 Sat by Pulse Oximetry (%) Laboratory Tests 06/01/17 06/02/17 06/02/17 22:21 07:30 07:30 WBC 6.9 D RBC 5.23 Hgb 12.6 Hct 39.0 MCV 74.6 L MCH 24.1 L MCHC 32.3 RDW 17.1 H Plt Count 340 MPV 7.5 Sodium Potassium Chloride Carbon Dioxide Anion Gap BUN Creatinine Creat Clearance w eGFR Random Glucose Calcium Total Bilirubin AST ALT Alkaline Phosphatase Total Protein Albumin Urine Color Yellow Urine Appearance Slcloudy Urine pH 5.0 Ur Specific [place] 1.021 Urine Protein Negative Urine Glucose (UA) Negative Urine Ketones Negative Urine Blood Negative Urine Nitrite Negative Urine Bilirubin Negative Urine Urobilinogen 2.0 Ur Leukocyte Esterase Negative RPR Titer T.pallidum Ab ([facility]) HIV 1&2 Antibody Screen Negative HIV P24 Antigen Negative 06/02/17 06/02/17 07:30 07:30 WBC RBC Hgb Hct MCV MCH MCHC RDW Plt Count MPV Sodium 143 Potassium 4.0 Chloride 110 H Carbon Dioxide 26 Anion Gap 7 L BUN 10 D Creatinine 1.1 Creat Clearance w eGFR > 60 Random Glucose 74 D Calcium 8.6 Total Bilirubin 0.3 D AST 28 D ALT 32 D Alkaline Phosphatase 63 Total Protein 6.3 L Albumin 3.4 Urine Color Urine Appearance Urine pH Ur Specific [place] Urine Protein Urine Glucose (UA) Urine Ketones Urine Blood Urine Nitrite Urine Bilirubin Urine Urobilinogen Ur Leukocyte Esterase RPR Titer Reactive 1:1 H T.pallidum Ab ([facility]) Non reactive HIV 1&2 Antibody Screen HIV P24 Antigen LABS NOTED. Assessment: 06/05/17 21:38 COMPLETION OF DETOX REGIMEN. Plan: PATIENT SCHEDULED FOR DISCHARGE FROM DETOX UNIT TODAY.
--- NOTE | 2017-06-05 21:40 | DS ---
[facility] Detox Discharge Summary Admission Date: 06/01/17 Discharge Date: 06/05/17 - History Present History: Alcohol Dependence, Cocaine Dependence Additional Comments: NO BEDS ARE CURRENTLY AVAILABLE IN [facility] ([place] AT THIS TIME, PATIENT ADVISED [facility] ON [facility]07/2017 TO INQUIRE ABOUT BED AVAILABILITY AND POSSIBLE ADMISSION AT THAT TIME. PATIENT LEFT DETOX UNIT IN STABLE MEDICAL CONDITION. Pertinent Past History: Depression, Insomnia, Schizoaffective Disorder, Bipolar Disorder, HTN, Hypercholesterolemia, Asthma, Nicotine Dependence. - Physical Exam Results Vital Signs: Vital Signs Temperature 96.1 F L 06/05/17 06:25 Pulse Rate 79 06/05/17 06:25 Respiratory Rate 18 06/05/17 06:25 Blood Pressure 137/86 06/05/17 06:25 O2 Sat by Pulse Oximetry (%) Pertinent Admission Physical Exam Findings: WITHDRAWAL SYMPTOMS. Laboratory Tests 06/01/17 06/02/17 06/02/17 22:21 07:30 07:30 WBC 6.9 D RBC 5.23 Hgb 12.6 Hct 39.0 MCV 74.6 L MCH 24.1 L MCHC 32.3 RDW 17.1 H Plt Count 340 MPV 7.5 Sodium Potassium Chloride Carbon Dioxide Anion Gap BUN Creatinine Creat Clearance w eGFR Random Glucose Calcium Total Bilirubin AST ALT Alkaline Phosphatase Total Protein Albumin Urine Color Yellow Urine Appearance Slcloudy Urine pH 5.0 Ur Specific [place] 1.021 Urine Protein Negative Urine Glucose (UA) Negative Urine Ketones Negative Urine Blood Negative Urine Nitrite Negative Urine Bilirubin Negative Urine Urobilinogen 2.0 Ur Leukocyte Esterase Negative RPR Titer T.pallidum Ab ([facility]) HIV 1&2 Antibody Screen Negative HIV P24 Antigen Negative 06/02/17 06/02/17 07:30 07:30 WBC RBC Hgb Hct MCV MCH MCHC RDW Plt Count MPV Sodium 143 Potassium 4.0 Chloride 110 H Carbon Dioxide 26 Anion Gap 7 L BUN 10 D Creatinine 1.1 Creat Clearance w eGFR > 60 Random Glucose 74 D Calcium 8.6 Total Bilirubin 0.3 D AST 28 D ALT 32 D Alkaline Phosphatase 63 Total Protein 6.3 L Albumin 3.4 Urine Color Urine Appearance Urine pH Ur Specific [place] Urine Protein Urine Glucose (UA) Urine Ketones Urine Blood Urine Nitrite Urine Bilirubin Urine Urobilinogen Ur Leukocyte Esterase RPR Titer Reactive 1:1 H T.pallidum Ab ([facility]) Non reactive HIV 1&2 Antibody Screen HIV P24 Antigen LABS NOTED. - Treatment Hospital Course: Detox Protocol Followed, Detoxed Safely, Responded well, Discharged Condition Good, Rehab Referral Accepted Patient has Accepted a Rehab Referral to: PT WILL APPLY FOR ADMISSION TO [facility] ON 06/07/2017. - Medication Discharge Medications: Ambulatory Orders Albuterol Sulfate Inhaler - [Ventolin HFA Inhaler -] 2 puff IH Q4H PRN #1 inhaler 06/05/17 Amlodipine Besylate [Norvasc -] 10 mg PO DAILY 30 Days #30 tablet 06/05/17 - Diagnosis (1) Alcohol dependence with uncomplicated withdrawal Status: Acute (2) Cocaine dependence, uncomplicated Status: Acute (3) Nicotine dependence Status: Acute Qualifiers: Nicotine product type: cigarettes Substance use status: in withdrawal Qualified Code(s): F17.213 - Nicotine dependence, cigarettes, with withdrawal (4) Asthma Status: Chronic (5) Essential hypertension Status: Chronic (6) Schizoaffective disorder Status: Chronic Qualifiers: Schizoaffective disorder type: bipolar Qualified Code(s): F25.0 - Schizoaffective disorder, bipolar type (7) Substance induced mood disorder Status: Suspected - AMA Did Patient Leave Against Medical Advice: No
== END 2017-06-05 09:10 | disposition home or self-care (01) | DRG 897 ==
LOC: YASAS 13:03 → Y3N 17:07
PROVIDERS: ADMIT Internal Medicine; ATTEND Internal Medicine
PROC: HZ2ZZZZ Detoxification Services for Substance Abuse Treatment (ICD-10-PCS; principal; 2017-06-02)
DX: F10.230 Alcohol dependence with withdrawal, uncomplicated (principal); F14.20 Cocaine dependence, uncomplicated; F17.213 Nicotine dependence, cigarettes, with withdrawal; F25.0 Schizoaffective disorder, bipolar type; F19.24 Other psychoactive substance dependence with psychoactive substance-induced mood disorder; I10 Essential (primary) hypertension; J45.909 Unspecified asthma, uncomplicated; G47.00 Insomnia, unspecified
CPT/HCPCS: 36415; 80053; 81003; 85027; 86593; 86780; 87389; 93005; 93010

== ENCOUNTER 2017-07-16 08:18 | Inpatient (IN) | payer OTHER ==
[2017-07-16 09:20] VITALS: BMI 25.2
--- NOTE | 2017-07-16 12:01 | HP ---
CIWA Score - CIWA Score Nausea/Vomitin-No Nausea/No Vomiting Muscle Tremors: 2 Anxiety: 4-Mod. Anxious/Guarded Agitation: 0-Normal Activity Paroxysmal Sweats: 2 Orientation: 0-Oriented Tacttile Disturbances: 2-Mild Itch/Numbness/Burn Auditory Disturbances: 0-None Visual Disturbances: 0-None Headache: 2-Mild CIWA-Ar Total Score: 12 Admission ROS S - HPI Chief Complaint: ETOH withdrawal symptoms. Allergies/Adverse Reactions: Allergies Allergy/AdvReac Type Severity Reaction Status Date / Time Sweet Potato Allergy Severe Hives Verified 07/16/17 10:47 No Known Drug Allergies Allergy Verified 07/16/17 10:47 squash Allergy Severe Hives Uncoded 07/16/17 10:47 History of Present Illness: Patient presents with ETOH withdrawal symptoms. Patient also smokes crack/ cocaine. Starting drinking ETOH at age 13 and smoking cocaine at age 16. Patient drinks 1-2 litres daily and smokes 50 dollars of crack daily. Last time patient uses both substances earlier this morning. Denies history of seizures. PMH include HTN, GERD, Asthma and depression/anxiety. Denies SI/HI and suicide attempts. Exam Limitations: No Limitations - Ebola screening Have you traveled outside of the country in the last 21 days: No (N) Have you had contact with anyone from an Ebola affected area: No Have you been sick,other than usual withdrawal symptoms: No Do you have a fever: No - Review of Systems Constitutional: Night Sweats, Changes in sleep, Unexplained wgt Loss EENT: reports: Recent change in vision, Nose Congestion Respiratory: reports: No Symptoms reported Cardiac: reports: No Symptoms Reported GI: reports: Nausea, Poor Fluid Intake : reports: No Symptoms Reported Musculoskeletal: reports: Back Pain, Muscle Pain Integumentary: reports: Sweating Neuro: reports: Headache, Numbness, Tremors Endocrine: reports: Unexplained Weight Loss Hematology: reports: No Symptoms Reported Psychiatric: reports: Orientated x3, Anxious, Depressed Patient History - Patient Medical History Hx Anemia: No Hx Asthma: Yes Hx Chronic Obstructive Pulmonary Disease (COPD): No Hx Cancer: No Hx Cardiac Disorders: No Hx Congestive Heart Failure: No Hx Hypertension: Yes (ON MEDS.) Hx Hypercholesterolemia: Yes (no med; DIET CONTROLLED) Hx Pacemaker: No HX Cerebrovascular Accident: No Hx Seizures: No Hx Dementia: No Hx Diabetes: No Hx Gastrointestinal Disorders: Yes (ACID REFLUX) Hx Liver Disease: No Hx Genitourinary Disorders: No Hx Sexually Transmitted Disorders: No Hx Renal Disease (ESRD): No Hx Thyroid Disease: No Hx Human Immunodeficiency Virus (HIV): No ([facility] Hx Hepatitis C: No Hx Depression: Yes Hx Suicide Attempt: No Hx Bipolar Disorder: Yes (ON MEDS ) Hx Schizophrenia: No - Patient Surgical History Past Surgical History: Yes Hx Neurologic Surgery: No Hx Cataract Extraction: No Hx Cardiac Surgery: No Hx Lung Surgery: No Hx Breast Surgery: No Hx Breast Biopsy: No Hx Abdominal Surgery: No Hx Appendectomy: No Hx Cholecystectomy: No Hx Genitourinary Surgery: No Hx Section: No Hx Orthopedic Surgery: Yes (left elbow and right wrist) Other Surgical History: sx to left elbow [place] 1985,FX OF RIGHT WRIST WITH DEFORMITY 2008 Anesthesia Reaction: No - PPD History Previous Implant?: Yes Documented Results: Negative w/proof Implanted On Prior [facility] Admission?: Yes Date: 06/03/17 Results: 0 MM PPD to be Administered?: No - Smoking Cessation Smoking history: Current every day smoker Have you smoked in the past 12 months: Yes Aproximately how many cigarettes per day: 8 Cigars Per Day: 0 Hx Chewing Tobacco Use: No Initiated information on smoking cessation: Yes 'Breaking Loose' booklet given: 07/16/17 - Substance & Tx. History Hx Alcohol Use: Yes Hx Substance Use: Yes Substance Use Type: Alcohol, Cocaine - Substances Abused Alcohol Route: Oral Frequency: Daily Amount used: 1 LITER VODKA Age of first use: 13 Date of Last Use: 07/16/17 Cocaine Route: Smoking Frequency: Daily Amount used: $50 Age of first use: 16 Date of Last Use: 07/15/17 Family Disease History - Family Disease History Family Disease History: [place]: Father (alcohol), Respiratory: Brother (asthma, drugs and alcohol), Sister, Daughter, Other: Father, Brother Admission Physical Exam S - Vital Signs Vital Signs: Vital Signs - 24 hr 07/16/17 09:16 Temperature 97.2 F L Pulse Rate 85 Respiratory 18 Rate Blood Pressure 147/87 - Physical General Appearance: Yes: Disheveled, Thin, Tremorous, Sweating, Anxious HEENTM: Yes: EOMI, Hearing grossly Normal, Normocephalic, Normal Voice, AMALIA, Pharynx Normal Respiratory: Yes: Chest Non-Tender, Lungs Clear, Normal Breath Sounds, No Respiratory Distress, No Accessory Muscle Use Neck: Yes: No masses,lesions,Nodules, Supple Breast: Yes: Breast Exam Deferred Cardiology: Yes: Regular Rhythm, Regular Rate, S1, S2 Abdominal: Yes: Normal Bowel Sounds, Non Tender, Flat, Soft Genitourinary: Yes: Within Normal Limits Back: Yes: Normal Inspection, Muscle Spasm Musculoskeletal: Yes: full range of Motion, Gait Steady, Pelvis Stable, Back pain Extremities: Yes: Normal Inspection, Normal Range of Motion, Non-Tender, Tremors Neurological: Yes: special education teaching assistant II-XII NML intact, Fully Oriented, Alert, Motor Strength 5/5, Depressed Affect Integumentary: Yes: Normal Color, Warm, Moist Lymphatic: Yes: Within Normal Limits - Diagnostic (1) Alcohol dependence with uncomplicated withdrawal Current Visit: Yes Status: Acute (2) Cocaine dependence, uncomplicated Current Visit: Yes Status: Acute (3) Nicotine dependence Current Visit: Yes Status: Chronic Qualifiers: Nicotine product type: cigarettes Substance use status: uncomplicated Qualified Code(s): F17.210 - Nicotine dependence, cigarettes, uncomplicated (4) Asthma Current Visit: Yes Status: Chronic (5) Essential hypertension Current Visit: Yes Status: Chronic (6) Bipolar disorder Current Visit: Yes Status: Suspected Cleared for Admission [facility] - Detox or Rehab [facility] Level of Care: Medically Managed Detox Regimen/Protocol: Librium [facility] Breath Alcohol Content Breath Alcohol Content: 0.033 Urine Drug Screen - Results Drug Screen Negative: No Urine Drug Screen Results: [place]-Cocaine
[2017-07-16] MEDS ORDERED: hydrOXYzine PAMOATE 50 MG CAPSULE (FP) PO PRN (12:09)
[2017-07-16] MEDS ORDERED: MAG HYDROX/AL HYDROX/SIMETH 30 ML UNIT-DOSE CUP PO PRN (12:09)
[2017-07-16] MEDS ORDERED: MENTHOL/PHENOL 1 EACH UD MM PRN (12:09)
[2017-07-16] MEDS ORDERED: ACETAMINOPHEN 325 MG TABLET (FP) PO PRN (12:09)
[2017-07-16] MEDS ORDERED: MAGNESIUM HYDROX 2400MG/30ML ORAL SUSPENSION 30 ML CUP PO PRN (12:09)
[2017-07-16] MEDS ORDERED: P-EPHED 60MG/TRIPROLIDI 2.5MG TABLET PO PRN (12:09)
[2017-07-16] MEDS ORDERED: LOPERAMIDE HCL 2 MG CAPSULE PO PRN (12:09)
[2017-07-16] MEDS ORDERED: MAGNESIUM CITRATE 300 ML BOTTLE PO PRN (12:09)
[2017-07-16] MEDS ORDERED: guaiFENesin/D-METHORPHAN HB 10 ML UNIT-DOSE CUPS PO PRN (12:09)
[2017-07-16] MEDS ORDERED: ALBUTEROL SO4 18 GM HFA INHALER IH PRN (12:11)
[2017-07-16] MEDS ORDERED: chlordiazePOXIDE HCL 25 MG CAPSULE PO PRN (12:12)
[2017-07-16] MEDS ORDERED: chlordiazePOXIDE HCL 25 MG CAPSULE PO ONE (12:15)
[2017-07-16] MEDS: NICOTINE POLACRILEX 2 MG GUM BUC PRN (13:23)
[2017-07-16] MEDS: chlordiazePOXIDE HCL 25 MG CAPSULE PO SCH ×2 (17:46→22:33)
[2017-07-16 17:50] LABS: URINE APPEARANCE CLEAR; URINE BILIRUBIN NEGATIVE (<2.0 mg/dL); URINE BLOOD NEGATIVE (NEGATIVE); URINE COLOR YELLOW; URINE GLUCOSE (UA) NEGATIVE (NEGATIVE); URINE KETONE NEGATIVE (NEGATIVE); URINE LEUK ESTERASE NEGATIVE (NEGATIVE); URINE NITRITE NEGATIVE (NEGATIVE); URINE PROTEIN NEGATIVE (NEGATIVE); URINE UROBILINOGEN 4.0 E.U/dl mg/dL (0.2-1.0)
[2017-07-16] MEDS ORDERED: MELATONIN 5 MG TABLETS PO PRN (22:00)
[2017-07-16] MEDS: THIAMINE HCL 100 MG TABLET (FP) PO SCH (22:33)
[2017-07-17] MEDS: IBUPROFEN 400 MG TABLET (FP) PO PRN ×2 (05:33→11:03)
[2017-07-17] MEDS: chlordiazePOXIDE HCL 25 MG CAPSULE PO SCH ×4 (05:33→22:29)
[2017-07-17] MEDS: NICOTINE POLACRILEX 2 MG GUM BUC PRN ×3 (05:34→18:39)
[2017-07-17 10:49] LABS: HEMATOCRIT 37.3 % (35.4-49); HEMOGLOBIN 12.3 GM/dL (11.7-16.9); MCH 23.7 pg (25.7-33.7); MCHC 32.9 g/dl (32.0-35.9); MEAN CELL VOLUME 72.1 fl (80-96); MEAN PLT VOLUME 7.3 fl (7.5-11.1); PLATELET COUNT 304 K/MM3 (134-434); RBC 5.17 M/mm3 (4.00-5.60); RDW 16.5 % (11.9-15.9)
[2017-07-17] MEDS: PRENATAL VITAMINS W/ FOLIC ACID TABLET (FP) PO SCH (11:01)
[2017-07-17] MEDS: PANTOPRAZOLE 40 MG TABLET (FP) PO SCH (11:01)
[2017-07-17] MEDS: amLODIPine BESYLATE 10 MG TABLET (FP) PO SCH (11:01)
[2017-07-17] MEDS: NICOTINE 21 MG/24 HOURS TOPICAL PATCH TD SCH (11:01)
[2017-07-17 11:08] LABS: CHLORIDE 106 mmol/L (98-107); POTASSIUM 4.2 mmol/L (3.5-5.1); SODIUM 141 mmol/L (136-145)
[2017-07-17 11:30] LABS: ALBUMIN 3.8 g/dl (3.4-5.0); ALK PHOS 82 U/L (45-117); ANION GAP 6 (8-16); BILIRUBIN,TOTAL 0.6 mg/dL (0.2-1.0); BLOOD UREA NITROGEN 11 mg/dL (7-18); CALCIUM 9.1 mg/dL (8.5-10.1); CO2 29 mmol/L (21-32); CREATININE 0.9 mg/dL (0.7-1.3); GLUCOSE,RANDOM 91 mg/dL (74-106); SGOT/AST 45 U/L (15-37); SGPT/ALT 40 U/L (12-78); TOT PROT 7.3 g/dl (6.4-8.2)
--- NOTE | 2017-07-17 14:50 | CONSULT ---
[facility] Psychiatric Consult - Data Date of interview: 07/17/17 Admission source: [facility] Identifying data: Another admission to [facility] for this 47 y/o AA male seeking detox treatment on for alcohol and cocaine (crack) dependence.Patient is ,a father of two,homeless,unemployed and supported on SSI/SSD benefits. Substance Abuse History: Confirmed by the patient in my interview.Smoking history: Current every day smoker. Have you smoked in the past 12 months: Yes. Aproximately how many cigarettes per day: 8. Cigars Per Day: 0. Hx Chewing Tobacco Use: No. Initiated information on smoking cessation: Yes. 'Breaking Loose' booklet given: 07/16/17. - Substance & Tx. History. Hx Alcohol Use: Yes. Hx Substance Use: Yes. Substance Use Type: Alcohol, Cocaine. - Substances Abused. Alcohol. Route: Oral. Frequency: Daily. Amount used: 1 LITER VODKA. Age of first use: 13. Date of Last Use: 07/16/17. Cocaine. Route: Smoking. Frequency: Daily. Amount used: $50. Age of first use: 16. Date of Last Use: 07/15/17 Medical History: GERD,bronchial asthma,hypertension,hypercholesterolemia and a distant history of orthosurgery for fracture of left elbow + right wrist. Psychiatric History: Onset of psychiatric disturbances : age 13.History of several psychiatric hospitalizations ([facility]Diagnosed with Schizoaffective Disorder.Maintained on olanzapine 15 mg/hs.Chronically non adherent to medications.Mr Sun indicates that he gets his OPD care at [facility] mental health clinic.NO show for past three months as per self- report.Patient denies history of suicide attempts. Physical/Sexual Abuse/Trauma History: No history. Additional Comment: Urine Drug Screen Results: [place]-Cocaine.Noted. Mental Status Exam - Mental Status Exam Alert and Oriented to: Time, Place, Person Cognitive Function: Good Patient Appearance: Well Groomed Mood: Nervous, Withdrawn Affect: Mood Congruent Patient Behavior: Fatigued, Cooperative Speech Pattern: Clear, Appropriate Voice Loudness: Normal Thought Process: Goal Oriented Thought Disorder: Not Present Hallucinations: Denies Suicidal Ideation: Denies Homicidal Ideation: Denies Insight/Judgement: Poor Sleep: Poorly, Difficulty falling asleep Appetite: Good Muscle strength/Tone: Normal Gait/Station: Normal Psychiatric Findings - Problem List ([place] 1, 2,3) (1) Alcohol dependence with uncomplicated withdrawal Current Visit: Yes Status: Acute (2) Cocaine dependence, uncomplicated Current Visit: Yes Status: Acute (3) Nicotine dependence Current Visit: Yes Status: Acute Qualifiers: Nicotine product type: cigarettes Substance use status: uncomplicated Qualified Code(s): F17.210 - Nicotine dependence, cigarettes, uncomplicated (4) Substance induced mood disorder Current Visit: Yes Status: Suspected (5) Schizoaffective disorder Current Visit: Yes Status: Chronic Qualifiers: Schizoaffective disorder type: bipolar Qualified Code(s): F25.0 - Schizoaffective disorder, bipolar type Comment: As per records.Non-compliance with medications. (6) Insomnia Current Visit: Yes Status: Acute (7) Non compliance w medication regimen Current Visit: Yes Status: Chronic - Initial Treatment Plan Initial Treatment Plan: Psychoeducation.Sleep hygiene.Detoxification in progress.Medications " zyprexa 10 mg po hs + ambien 5 mg po hs prn.Side effects/ benefits of both drugs are discussed with the patient.Mr Sun consents to this plan of care.Observation.
--- NOTE | 2017-07-17 14:51 | EKG ---
Test Reason : Blood Pressure : / mmHG Vent. Rate : 079 BPM Atrial Rate : 079 BPM P-R Int : 126 ms QRS Dur : 100 ms QT Int : 410 ms P-R-T Axes : 073 062 059 degrees QTc Int : 470 ms NORMAL SINUS RHYTHM POSSIBLE LEFT ATRIAL ENLARGEMENT BORDERLINE ECG WHEN COMPARED WITH ECG OF 01-JUN-2017 19:09, NO SIGNIFICANT CHANGE WAS FOUND Confirmed by MD Ford Daniel ([id number]) on 07/17/2017 2:50:58 PM Referred By: Confirmed By:Demian Ford MD
--- NOTE | 2017-07-17 17:02 | PN ---
[facility] CIWA - CIWA Score Nausea/Vomitin-No Nausea/No Vomiting Muscle Tremors: 4-Moderate,w/Arms Extend Anxiety: 4-Mod. Anxious/Guarded Agitation: 2 Paroxysmal Sweats: No Perspiration Orientation: 0-Oriented Tacttile Disturbances: 3-Moderate Itch/Numb/Burn Auditory Disturbances: 3-Moderate Harsh/Frighten Visual Disturbances: 0-None Headache: 0-None Present CIWA-Ar Total Score: 16 BHS Progress Note (SOAP) Subjective: Body Aches, Tremors, Anxious, Interrupted Sleep. Objective: PATIENT A & O X 3, OBSERVED AMBULATING ON UNIT. NO ACUTE DISTRESS. 07/17/17 17:00 Vital Signs Temperature 98.2 F 07/17/17 14:08 Pulse Rate 66 07/17/17 14:08 Respiratory Rate 18 07/17/17 14:08 Blood Pressure 141/91 07/17/17 14:08 O2 Sat by Pulse Oximetry (%) Laboratory Tests 07/16/17 07/17/17 07/17/17 14:00 06:00 06:00 WBC 5.0 RBC 5.17 Hgb 12.3 Hct 37.3 MCV 72.1 L MCH 23.7 L MCHC 32.9 RDW 16.5 H Plt Count 304 MPV 7.3 L Sodium 141 Potassium 4.2 Chloride 106 Carbon Dioxide 29 Anion Gap 6 L BUN 11 Creatinine 0.9 Creat Clearance w eGFR > 60 Random Glucose 91 D Calcium 9.1 Total Bilirubin 0.6 D AST 45 H D ALT 40 D Alkaline Phosphatase 82 D Total Protein 7.3 Albumin 3.8 Urine Color Yellow Urine Appearance Clear Urine pH 6.0 Ur Specific [place] 1.026 Urine Protein Negative Urine Glucose (UA) Negative Urine Ketones Negative Urine Blood Negative Urine Nitrite Negative Urine Bilirubin Negative Urine Urobilinogen 4.0 e.u/dl Ur Leukocyte Esterase Negative LABS NOTED. RPR RESULT PENDING. 07/17/17 17:01 Assessment: 07/17/17 17:00 WITHDRAWAL SYMPTOMS. Plan: CONTINUE DETOX.
[2017-07-17] MEDS ORDERED: ZOLPIDEM TARTRATE 5 MG TABLET PO PRN (22:00)
[2017-07-17] MEDS ORDERED: OLANZapine 10 MG TABLET PO SCH (22:00)
[2017-07-17] MEDS: THIAMINE HCL 100 MG TABLET (FP) PO SCH (22:29)
[2017-07-18] MEDS: chlordiazePOXIDE HCL 25 MG CAPSULE PO SCH ×2 (06:04→10:24)
[2017-07-18 09:55] VITALS: BP 152/90; PULSE 87; TEMP 97.1
[2017-07-18] MEDS: PANTOPRAZOLE 40 MG TABLET (FP) PO SCH (10:24)
[2017-07-18] MEDS: amLODIPine BESYLATE 10 MG TABLET (FP) PO SCH (10:24)
[2017-07-18] MEDS: PRENATAL VITAMINS W/ FOLIC ACID TABLET (FP) PO SCH (10:24)
[2017-07-18] MEDS: NICOTINE 21 MG/24 HOURS TOPICAL PATCH TD SCH (10:24)
[2017-07-18 12:38] LABS: RPR REACTIVE 1:1 (NONREACTIVE)
[2017-07-18 12:46] LABS: TREPONEMA ANTIBODY NON REACTIVE (NONREACTIVE)
--- NOTE | 2017-07-18 13:22 | PN ---
[facility] Progress Note Note: PT SIGNED OUT AMA STATING"I'M GOING TO [place] TO MY [facility]. I MOVED TO [place] AND I'M GOING BACK THERE". PT UNABLE TO BE ENGAGED AND HAS HIS MINGD SET TO LEAVE TREATMENT TODAY. ALERT O X 3. NAD. Vital Signs 07/18/17 07/18/17 06:16 09:54 Temperature 96.2 F L 97.1 F L Pulse Rate 62 87 Respiratory 18 18 Rate Blood Pressure 113/68 152/90 Laboratory Tests 07/16/17 07/17/17 07/17/17 14:00 06:00 06:00 WBC 5.0 RBC 5.17 Hgb 12.3 Hct 37.3 MCV 72.1 L MCH 23.7 L MCHC 32.9 RDW 16.5 H Plt Count 304 MPV 7.3 L Sodium 141 Potassium 4.2 Chloride 106 Carbon Dioxide 29 Anion Gap 6 L BUN 11 Creatinine 0.9 Creat Clearance w eGFR > 60 Random Glucose 91 D Calcium 9.1 Total Bilirubin 0.6 D AST 45 H D ALT 40 D Alkaline Phosphatase 82 D Total Protein 7.3 Albumin 3.8 Urine Color Yellow Urine Appearance Clear Urine pH 6.0 Ur Specific [place] 1.026 Urine Protein Negative Urine Glucose (UA) Negative Urine Ketones Negative Urine Blood Negative Urine Nitrite Negative Urine Bilirubin Negative Urine Urobilinogen 4.0 e.u/dl Ur Leukocyte Esterase Negative RPR Titer T.pallidum Ab (MHA) 07/17/17 06:00 WBC RBC Hgb Hct MCV MCH MCHC RDW Plt Count MPV Sodium Potassium Chloride Carbon Dioxide Anion Gap BUN Creatinine Creat Clearance w eGFR Random Glucose Calcium Total Bilirubin AST ALT Alkaline Phosphatase Total Protein Albumin Urine Color Urine Appearance Urine pH Ur Specific [place] Urine Protein Urine Glucose (UA) Urine Ketones Urine Blood Urine Nitrite Urine Bilirubin Urine Urobilinogen Ur Leukocyte Esterase RPR Titer Reactive 1:1 H T.pallidum Ab (MHA) Non reactive PT SIGNED OUT AMA
--- NOTE | 2017-07-18 13:24 | DS ---
[facility] Detox Discharge Summary Admission Date: 07/16/17 Discharge Date: 07/18/17 - History Present History: Alcohol Dependence, Cocaine Dependence Additional Comments: PT SIGNED OUT AMA ON PERSONAL REASONS. ALERT O X 3. NAD. Pertinent Past History: PLEASE SEE DX BELOW - Physical Exam Results Vital Signs: Vital Signs Temperature 97.1 F L 07/18/17 09:54 Pulse Rate 87 07/18/17 09:54 Respiratory Rate 18 07/18/17 09:54 Blood Pressure 152/90 07/18/17 09:54 O2 Sat by Pulse Oximetry (%) Pertinent Admission Physical Exam Findings: WITHDRAWAL SX Laboratory Tests 07/16/17 07/17/17 07/17/17 14:00 06:00 06:00 WBC 5.0 RBC 5.17 Hgb 12.3 Hct 37.3 MCV 72.1 L MCH 23.7 L MCHC 32.9 RDW 16.5 H Plt Count 304 MPV 7.3 L Sodium 141 Potassium 4.2 Chloride 106 Carbon Dioxide 29 Anion Gap 6 L BUN 11 Creatinine 0.9 Creat Clearance w eGFR > 60 Random Glucose 91 D Calcium 9.1 Total Bilirubin 0.6 D AST 45 H D ALT 40 D Alkaline Phosphatase 82 D Total Protein 7.3 Albumin 3.8 Urine Color Yellow Urine Appearance Clear Urine pH 6.0 Ur Specific [place] 1.026 Urine Protein Negative Urine Glucose (UA) Negative Urine Ketones Negative Urine Blood Negative Urine Nitrite Negative Urine Bilirubin Negative Urine Urobilinogen 4.0 e.u/dl Ur Leukocyte Esterase Negative RPR Titer T.pallidum Ab (A) 07/17/17 06:00 WBC RBC Hgb Hct MCV MCH MCHC RDW Plt Count MPV Sodium Potassium Chloride Carbon Dioxide Anion Gap BUN Creatinine Creat Clearance w eGFR Random Glucose Calcium Total Bilirubin AST ALT Alkaline Phosphatase Total Protein Albumin Urine Color Urine Appearance Urine pH Ur Specific [place] Urine Protein Urine Glucose (UA) Urine Ketones Urine Blood Urine Nitrite Urine Bilirubin Urine Urobilinogen Ur Leukocyte Esterase RPR Titer Reactive 1:1 H T.pallidum Ab (MHA) Non reactive - Treatment Hospital Course: Discharged Condition Good Patient has Accepted a Rehab Referral to: REFUSED - Medication Discharge Medications: Ambulatory Orders Albuterol Sulfate Inhaler - [Ventolin HFA Inhaler -] 2 puff IH Q4H PRN #1 inhaler 06/05/17 Amlodipine Besylate [Norvasc -] 10 mg PO DAILY 30 Days #30 tablet 06/05/17 - Diagnosis (1) Alcohol dependence with uncomplicated withdrawal Current Visit: Yes Status: Acute (2) Cocaine dependence, uncomplicated Current Visit: Yes Status: Acute (3) Nicotine dependence Current Visit: Yes Status: Acute Qualifiers: Nicotine product type: cigarettes Substance use status: in withdrawal Qualified Code(s): F17.213 - Nicotine dependence, cigarettes, with withdrawal (4) Asthma Current Visit: Yes Status: Acute (5) Essential hypertension Current Visit: Yes Status: Chronic (6) Non compliance w medication regimen Current Visit: Yes Status: Chronic (7) Left against medical advice Current Visit: Yes Status: Chronic - AMA Did Patient Leave Against Medical Advice: Yes (AMA)
[2017-07-18] MEDS ORDERED: chlordiazePOXIDE 5 MG CAPSULE PO SCH (17:00)
[2017-07-19] MEDS ORDERED: chlordiazePOXIDE HCL 10 MG CAPSULE PO SCH (17:00)
== END 2017-07-18 11:00 | disposition left against medical advice (07) | DRG 894 ==
LOC: YASAS 08:18 → Y3N 11:58
PROVIDERS: ADMIT Surgery; ATTEND Surgery
PROC: HZ2ZZZZ Detoxification Services for Substance Abuse Treatment (ICD-10-PCS; principal; 2017-07-16)
DX: F10.230 Alcohol dependence with withdrawal, uncomplicated (principal); F14.20 Cocaine dependence, uncomplicated; F17.213 Nicotine dependence, cigarettes, with withdrawal; F19.24 Other psychoactive substance dependence with psychoactive substance-induced mood disorder; F31.9 Bipolar disorder, unspecified; F25.9 Schizoaffective disorder, unspecified; I10 Essential (primary) hypertension; J45.909 Unspecified asthma, uncomplicated; G47.00 Insomnia, unspecified; K21.9 Gastro-esophageal reflux disease without esophagitis; E78.00 Pure hypercholesterolemia, unspecified; Z91.14 Patient's other noncompliance with medication regimen; Z91.018 Allergy to other foods
CPT/HCPCS: 36415; 80053; 81003; 85027; 86593; 86780; 93005; 93010

== ENCOUNTER 2017-12-16 08:45 | Inpatient (IN) | payer OTHER ==
[2017-12-16 09:05] VITALS: BMI 22.9
--- NOTE | 2017-12-16 11:01 | HP ---
CIWA Score Nausea/Vomitin Muscle Tremors: 2 Anxiety: 2 Agitation: 2 Paroxysmal Sweats: 1-Minimal Palms Moist Orientation: 0-Oriented Tacttile Disturbances: 1-Very Mild Itch/Numbness Auditory Disturbances: 1-Very Mild Visual Disturbances: 0-None Headache: 2-Mild CIWA-Ar Total Score: 13 - Admission Criteria OASAS Guidelines: Admission for Medically Managed Detox: Requires at least one of the followin. CIWA greater than 12 2. Seizures within the past 24 hours 3. Delirium tremens within the past 24 hours 4. Hallucinations within the past 24 hours 5. Acute intervention needed for co occurring medical disorder 6. Acute intervention needed for co occurring psychiatric disorder 7. Severe withdrawal that cannot be handled at a lower level of care (continued vomiting, continued diarrhea, abnormal vital signs) requiring intravenous medication and/or fluids 8. Patient presents the following: CIWA greater than 12, Acute intervention needed for co-occurring med or psych disorder Admission Criteria Met: Admission criteria met Admission ROS S - HPI Chief Complaint: i need help to stop drinking alcohol and cocaine Allergies/Adverse Reactions: Allergies Allergy/AdvReac Type Severity Reaction Status Date / Time Sweet Potato Allergy Severe Hives Verified 12/16/17 09:30 No Known Drug Allergies Allergy Verified 12/16/17 09:30 squash Allergy Severe Hives Uncoded 12/16/17 09:30 History of Present Illness: this 47 years old male with alcohol and cocaine dependence,seeking detox, withdrawal symptom,last detox [facility] 09/04/17 to 10/09/17 history of hypertension and anemia bipolar disorder nicotine dependence longest period of sobriety 8 years weight loss plan for rehab after detox Exam Limitations: No Limitations - Ebola screening Have you traveled outside of the country in the last 21 days: No Have you had contact with anyone from an Ebola affected area: No Have you been sick,other than usual withdrawal symptoms: No Do you have a fever: No - Review of Systems Constitutional: Night Sweats, Changes in sleep, Weakness, Unintentional Wgt. Loss EENT: reports: Nose Congestion Respiratory: reports: No Symptoms reported Cardiac: reports: No Symptoms Reported GI: reports: Nausea, Poor Appetite, Abdominal cramping : reports: No Symptoms Reported Integumentary: reports: Dryness Neuro: reports: Headache, Tremors Endocrine: reports: No Symptoms Reported Hematology: reports: No Symptoms Reported, Other (anemia) Psychiatric: reports: No Sypmtoms Reported, Judgement Intact, Mood/Affect Appropiate, Orientated x3 (bipolar disorder) Patient History - Patient Medical History Hx Anemia: No Hx Asthma: Yes (on albuterol inhaler) Hx Chronic Obstructive Pulmonary Disease (COPD): No Hx Cancer: No Hx Cardiac Disorders: No Hx Congestive Heart Failure: No Hx Hypertension: Yes (ON MEDS - COMPLIANT) Hx Hypercholesterolemia: Yes (no med; DIET CONTROLLED) Hx Pacemaker: No HX Cerebrovascular Accident: No Hx Seizures: No Hx Dementia: No Hx Diabetes: No Hx Gastrointestinal Disorders: No Hx Liver Disease: No Hx Genitourinary Disorders: No Hx Sexually Transmitted Disorders: Yes (history of sypnilis) Hx Renal Disease (ESRD): No Hx Thyroid Disease: No Hx Human Immunodeficiency Virus (HIV): No (last 03/27 negative hx at [facility]) Hx Hepatitis C: No Hx Depression: No Hx Suicide Attempt: No Hx Bipolar Disorder: Yes (ON MEDS ) Hx Schizophrenia: Yes (2000) Other Medical History: no suicidal,no no homicidal - Patient Surgical History Past Surgical History: Yes Hx Neurologic Surgery: No Hx Cataract Extraction: No Hx Cardiac Surgery: No Hx Lung Surgery: No Hx Breast Surgery: No Hx Breast Biopsy: No Hx Abdominal Surgery: No Hx Appendectomy: No Hx Cholecystectomy: No Hx Genitourinary Surgery: No Hx Section: No Hx Orthopedic Surgery: Yes (left elbow and right wrist) Other Surgical History: sx to left elbow IN 1985,FX OF RIGHT WRIST WITH DEFORMITY 2008 Anesthesia Reaction: No - PPD History Previous Implant?: Yes Documented Results: Negative w/proof Implanted On Prior [facility] Admission?: Yes Date: 06/03/17 Results: 0 MM PPD to be Administered?: No - Smoking Cessation Smoking history: Current every day smoker Have you smoked in the past 12 months: Yes Aproximately how many cigarettes per day: 5 Cigars Per Day: 0 Hx Chewing Tobacco Use: No Initiated information on smoking cessation: Yes 'Breaking Loose' booklet given: 12/16/17 - Substance & Tx. History Hx Alcohol Use: Yes Hx Substance Use: Yes Substance Use Type: Alcohol, Cocaine Hx Substance Use Treatment: Yes ([facility] 09/04/17 to 09/08/17) - Substances Abused Alcohol Route: Oral Frequency: Daily Amount used: 1 LITTER OF VODKA Age of first use: 13 Date of Last Use: 12/16/17 Crack Route: Smoking Frequency: 1-3 times last 30 days Amount used: $200 Age of first use: 16 Date of Last Use: 12/15/17 Family Disease History - Family Disease History Family Disease History: CA: Father ( - alcohol), Sister (six - one alcohol/cancer), Respiratory: Brother (three living - asthma, drugs and alcohol), Sister, Daughter (one), Other: Father, Mother (living - healthy), Brother, Sister, Son (one- healthy), Daughter Admission Physical Exam [facility] - Vital Signs Vital Signs: Vital Signs - 24 hr 12/16/17 12/16/17 09:03 09:47 Temperature 96.3 F L 96.3 F L Pulse Rate 96 H 96 H Respiratory 20 20 Rate Blood Pressure 141/86 141/86 - Physical General Appearance: Yes: Moderate Distress, Tremorous, Irritable, Sweating, Anxious HEENTM: Yes: AMALIA, Pharynx Normal, Tm's normal Respiratory: Yes: Lungs Clear, Normal Breath Sounds, No Respiratory Distress Neck: Yes: Within Normal Limits, Supple, Trachea in good position Breast: Yes: Within Normal Limits Cardiology: Yes: Within Normal Limits, Regular Rhythm, Regular Rate, S1, S2 Abdominal: Yes: Within Normal Limits, Normal Bowel Sounds, Non Tender, Soft Genitourinary: Yes: Within Normal Limits Back: Yes: Muscle Spasm Musculoskeletal: Yes: Back pain, Muscle Pain Extremities: Yes: Tremors, Other (deformity of right wrist) Neurological: Yes: agile scrum coach II-XII NML intact, Alert, Motor Strength 5/5, Normal Mood /Affect Integumentary: Yes: Dry Lymphatic: Yes: Within Normal Limits - Diagnostic (1) Syncope Current Visit: No Status: Active (2) Alcohol dependence with uncomplicated withdrawal Current Visit: No Status: Acute (3) Cocaine dependence, uncomplicated Current Visit: No Status: Acute (4) Bipolar disorder Current Visit: No Status: Chronic (5) Deformity of right wrist Current Visit: No Status: Chronic (6) Essential hypertension Current Visit: No Status: Chronic (7) HLD (hyperlipidemia) Current Visit: No Status: Chronic (8) History of syphilis Current Visit: Yes Status: Acute (9) Asthma Current Visit: Yes Status: Acute Cleared for Admission [facility] - Detox or Rehab [facility] Level of Care: Medically Managed Detox Regimen/Protocol: Librium [facility] Breath Alcohol Content Breath Alcohol Content: 0.061 Urine Drug Screen - Results Drug Screen Negative: No Urine Drug Screen Results: [place]-Cocaine
[2017-12-16] MEDS ORDERED: IBUPROFEN 400 MG TABLET (FP) PO PRN (11:10)
[2017-12-16] MEDS ORDERED: LOPERAMIDE HCL 2 MG CAPSULE PO PRN (11:10)
[2017-12-16] MEDS ORDERED: MAGNESIUM CITRATE 300 ML BOTTLE PO PRN (11:10)
[2017-12-16] MEDS ORDERED: guaiFENesin/D-METHORPHAN HB 10 ML UNIT-DOSE CUPS PO PRN (11:10)
[2017-12-16] MEDS ORDERED: ACETAMINOPHEN 325 MG TABLET (FP) PO PRN (11:10)
[2017-12-16] MEDS ORDERED: MAGNESIUM HYDROX 2400MG/30ML ORAL SUSPENSION 30 ML CUP PO PRN (11:10)
[2017-12-16] MEDS ORDERED: MAG HYDROX/AL HYDROX/SIMETH 30 ML UNIT-DOSE CUP PO PRN (11:10)
[2017-12-16] MEDS ORDERED: P-EPHED 60MG/TRIPROLIDI 2.5MG TABLET PO PRN (11:10)
[2017-12-16] MEDS ORDERED: MENTHOL/PHENOL 1 EACH UD MM PRN (11:10)
[2017-12-16] MEDS ORDERED: ALBUTEROL SO4 8 GM HFA INHALER IH PRN (11:18)
[2017-12-16] MEDS: chlordiazePOXIDE HCL 25 MG CAPSULE PO PRN (13:04)
[2017-12-16] MEDS: chlordiazePOXIDE HCL 25 MG CAPSULE PO SCH ×2 (17:07→22:05)
[2017-12-16 18:30] LABS: URINE APPEARANCE CLEAR; URINE BILIRUBIN NEGATIVE (<2.0 mg/dL); URINE COLOR LTYELLOW; URINE GLUCOSE (UA) NEGATIVE (NEGATIVE); URINE KETONE NEGATIVE (NEGATIVE); URINE LEUK ESTERASE NEGATIVE (NEGATIVE); URINE NITRITE NEGATIVE (NEGATIVE); URINE PROTEIN NEGATIVE (NEGATIVE); URINE UROBILINOGEN NEGATIVE mg/dL (0.2-1.0)
[2017-12-16] MEDS ORDERED: MELATONIN 5 MG TABLETS PO PRN (22:00)
[2017-12-16] MEDS: THIAMINE HCL 100 MG TABLET (FP) PO SCH (22:05)
[2017-12-17] MEDS: chlordiazePOXIDE HCL 25 MG CAPSULE PO SCH ×4 (06:05→22:10)
--- NOTE | 2017-12-17 07:36 | EKG ---
Test Reason : Blood Pressure : / mmHG Vent. Rate : 088 BPM Atrial Rate : 088 BPM P-R Int : 122 ms QRS Dur : 086 ms QT Int : 388 ms P-R-T Axes : 076 060 072 degrees QTc Int : 469 ms SINUS RHYTHM WITH PREMATURE ATRIAL COMPLEXES POSSIBLE LEFT ATRIAL ENLARGEMENT NONSPECIFIC T WAVE ABNORMALITY PROLONGED QT ABNORMAL ECG WHEN COMPARED WITH ECG OF 04-SEP-2017 14:06, PREMATURE ATRIAL COMPLEXES ARE NOW PRESENT NONSPECIFIC T WAVE ABNORMALITY NOW EVIDENT IN ANTEROLATERAL LEADS Confirmed by LIBIA MURCIA MD ([id number]) on 12/17/2017 7:36:27 AM Referred By: Confirmed By:LIBIA MURCIA MD
[2017-12-17] MEDS: NICOTINE POLACRILEX 2 MG GUM BUC PRN ×2 (09:49→19:56)
[2017-12-17 10:16] LABS: HEMATOCRIT 37.2 % (35.4-49); HEMOGLOBIN 11.7 GM/dL (11.7-16.9); MCH 23.1 pg (25.7-33.7); MCHC 31.5 g/dl (32.0-35.9); MEAN CELL VOLUME 73.4 fl (80-96); MEAN PLT VOLUME 7.6 fl (7.5-11.1); PLATELET COUNT 275 K/MM3 (134-434); RBC 5.07 M/mm3 (4.00-5.60); RDW 17.4 % (11.9-15.9)
[2017-12-17] MEDS: PRENATAL VITAMINS W/ FOLIC ACID TABLET (FP) PO SCH (10:25)
[2017-12-17] MEDS: amLODIPine BESYLATE 10 MG TABLET (FP) PO SCH (10:26)
[2017-12-17 10:54] LABS: ALBUMIN 3.6 g/dl (3.4-5.0); ALK PHOS 68 U/L (45-117); ANION GAP 10 MMOL/L (8-16); BILIRUBIN,TOTAL 0.6 mg/dL (0.2-1); BLOOD UREA NITROGEN 16 mg/dL (7-18); CALCIUM 8.4 mg/dL (8.5-10.1); CHLORIDE 107 mmol/L (98-107); CO2 25 mmol/L (21-32); CREATININE 0.9 mg/dL (0.55-1.3); GLUCOSE,RANDOM 83 mg/dL (74-106); SGOT/AST 36 U/L (15-37); SGPT/ALT 32 U/L (13-61); SODIUM 142 mmol/L (136-145); TOT PROT 6.6 g/dl (6.4-8.2)
[2017-12-17 11:25] LABS: RPR REACTIVE 1:1 (NONREACTIVE)
[2017-12-17] MEDS ORDERED: FLU VACCINE QUAD 60 MCG/0.5 ML (MDV 18-19) IM ONE (12:00)
--- NOTE | 2017-12-17 12:55 | CONSULT ---
[facility] Psychiatric Consult - Data Date of interview: 12/17/17 Admission source: [facility] Identifying data: Readmission to [facility] for this 47 y/o AA male seeking detoxification treatment on for alcohol and cocaine (crack) dependence.Patient is , a father of two, homeless, unemployed and supported on SSI/SSD benefits. Substance Abuse History: Confirmed by the patient in this interview. Details in current [facility] report : Smoking history: Current every day smoker. Have you smoked in the past 12 months: Yes. Aproximately how many cigarettes per day: 5. Cigars Per Day: 0. Hx Chewing Tobacco Use: No. Initiated information on smoking cessation: Yes. 'Breaking Loose' booklet given: 12/16/17. - Substance & Tx. History. Hx Alcohol Use: Yes. Hx Substance Use: Yes. Substance Use Type : Alcohol, Cocaine. Hx Substance Use Treatment: Yes ([facility] 09/04/17 to 09/08/17) . - Substances Abused. Alcohol. Route: Oral. Frequency: Daily. Amount used: 1 LITTER OF VODKA. Age of first use: 13. Date of Last Use: 12/16/17. * * Crack. Route: Smoking. Frequency: 1-3 times last 30 days. Amount used: $ 200. Age of first use: 16. Date of Last Use: 12/15/17 Medical History: Antecedent of treatment for syphilis, GERD, bronchial asthma, hypertension, hypercholesterolemia and a distant history of orthosurgery for fracture of left elbow + right wrist. Psychiatric History: Long-standing history of psychiatric disturbances (age 13) . History of several psychiatric hospitalizations ([facility], [facility] in [facility], [facility] and [facility]). Patient is diagnosed with Schizoaffective Disorder. Mr Sun is followed at the [facility] health clinic in [facility]. Managed with seroquel 100 mg/hs. Chronically non adherent to medications. Patient denies history of suicide attempts. Physical/Sexual Abuse/Trauma History: No history. Additional Comment: Urine Drug Screen Results: [place]-Cocaine. Noted. Mental Status Exam - Mental Status Exam Alert and Oriented to: Time, Place, Person Cognitive Function: Good Patient Appearance: Unkempt (malodorous), Disheveled Mood: Withdrawn Affect: Appropriate, Normal Range Patient Behavior: Fatigued, Cooperative Speech Pattern: Clear, Appropriate Voice Loudness: Normal Thought Process: Intact, Goal Oriented Thought Disorder: Not Present Hallucinations: Denies Suicidal Ideation: Denies Homicidal Ideation: Denies Insight/Judgement: Poor Sleep: Poorly, Difficulty falling asleep Appetite: Good Muscle strength/Tone: Normal Gait/Station: Normal Psychiatric Findings - Problem List ([place] 1, 2,3) (1) Alcohol dependence with uncomplicated withdrawal Current Visit: Yes Status: Acute (2) Cocaine dependence, uncomplicated Current Visit: Yes Status: Acute (3) Nicotine dependence Current Visit: No Status: Acute Qualifiers: Nicotine product type: cigarettes Substance use status: in withdrawal Qualified Code(s): F17.213 - Nicotine dependence, cigarettes, with withdrawal (4) Schizoaffective disorder Current Visit: Yes Status: Chronic Qualifiers: Schizoaffective disorder type: bipolar Qualified Code(s): F25.0 - Schizoaffective disorder, bipolar type Comment: As per records.Non-compliance with medications. (5) Substance induced mood disorder Current Visit: Yes Status: Acute (6) Insomnia Current Visit: Yes Status: Acute (7) Non compliance w medication regimen Current Visit: Yes Status: Chronic - Initial Treatment Plan Initial Treatment Plan: Psychoeducation. Detoxification. Sleep hygiene. Psychotherapy (group, supportive). Relapse prevention discussed with patient. Made aware of FDA-approved medications (naltrexone, acamprosate) + 12 step fellowship + counseling to facilitate maintenance of sobriety. Medication : seroquel 100 mg po hs. Side effects/benefits discussed with the patient. Mr Sun is in agreement with this careplan. Observation.
[2017-12-17 14:54] LABS: TREPONEMA ANTIBODY NON REACTIVE (NONREACTIVE)
[2017-12-17] MEDS ORDERED: LIDOCAINE VISCOUS 2% ORAL/TOP 20 ML UNIT-DOSE CUP MM PRN (15:28)
--- NOTE | 2017-12-17 15:35 | PN ---
S CIWA - CIWA Score Nausea/Vomitin Muscle Tremors: 4-Moderate,w/Arms Extend Anxiety: 4-Mod. Anxious/Guarded Agitation: 2 Paroxysmal Sweats: 3 Orientation: 0-Oriented Tacttile Disturbances: 1-Very Mild Itch/Numbness Auditory Disturbances: 0-None Visual Disturbances: 0-None Headache: 0-None Present CIWA-Ar Total Score: 16 BHS Progress Note (SOAP) Subjective: Interrupted sleep, sweating, tremor, nausea Objective: 12/17/17 15:35 Last Vital Signs Temp Pulse Resp BP Pulse Ox 96.8 F L 75 17 119/67 12/17/17 09:00 12/17/17 09:00 12/17/17 09:00 12/17/17 09:00 Laboratory Tests 12/16/17 12/17/17 12/17/17 15:48 07:00 07:00 WBC 6.0 RBC 5.07 Hgb 11.7 Hct 37.2 MCV 73.4 L MCH 23.1 L MCHC 31.5 L RDW 17.4 H Plt Count 275 MPV 7.6 Sodium 142 Potassium 4.0 Chloride 107 Carbon Dioxide 25 Anion Gap 10 BUN 16 Creatinine 0.9 Creat Clearance w eGFR > 60 Random Glucose 83 Calcium 8.4 L Total Bilirubin 0.6 AST 36 ALT 32 Alkaline Phosphatase 68 Total Protein 6.6 Albumin 3.6 Urine Color [place] Urine Appearance Clear Urine pH 5.0 Ur Specific [place] 1.020 Urine Protein Negative Urine Glucose (UA) Negative Urine Ketones Negative Urine Blood Negative Urine Nitrite Negative Urine Bilirubin Negative Urine Urobilinogen Negative Ur Leukocyte Esterase Negative RPR Titer T.pallidum Ab (MHA) 12/17/17 07:00 WBC RBC Hgb Hct MCV MCH MCHC RDW Plt Count MPV Sodium Potassium Chloride Carbon Dioxide Anion Gap BUN Creatinine Creat Clearance w eGFR Random Glucose Calcium Total Bilirubin AST ALT Alkaline Phosphatase Total Protein Albumin Urine Color Urine Appearance Urine pH Ur Specific [place] Urine Protein Urine Glucose (UA) Urine Ketones Urine Blood Urine Nitrite Urine Bilirubin Urine Urobilinogen Ur Leukocyte Esterase RPR Titer Reactive 1:1 H T.pallidum Ab (MHA) Non reactive Labs reviewed: patient denied any h/o syphillis Assessment: 12/17/17 15:38 Withdrawal sxs Plan: Continue detox Encouraged PO water intake
[2017-12-17] MEDS: QUEtiapine FUMARATE 100 MG TABLET (FP) PO SCH (22:10)
[2017-12-17] MEDS: THIAMINE HCL 100 MG TABLET (FP) PO SCH (22:10)
[2017-12-18] MEDS: chlordiazePOXIDE HCL 25 MG CAPSULE PO SCH ×2 (05:30→10:32)
[2017-12-18] MEDS: NICOTINE POLACRILEX 2 MG GUM BUC PRN ×3 (08:52→20:02)
[2017-12-18] MEDS ORDERED: BENZOCAINE 20 % GEL TUBE MM PRN (09:06)
[2017-12-18] MEDS: PRENATAL VITAMINS W/ FOLIC ACID TABLET (FP) PO SCH (10:32)
[2017-12-18] MEDS: amLODIPine BESYLATE 10 MG TABLET (FP) PO SCH (10:33)
--- NOTE | 2017-12-18 11:36 | PN ---
[facility] CIWA - CIWA Score Nausea/Vomitin-No Nausea/No Vomiting Muscle Tremors: 2 Anxiety: 3 Agitation: 3 Paroxysmal Sweats: 2 Orientation: 0-Oriented Tacttile Disturbances: 2-Mild Itch/Numbness/Burn Auditory Disturbances: 0-None Visual Disturbances: 0-None Headache: 0-None Present CIWA-Ar Total Score: 12 S Progress Note (SOAP) Subjective: dentalgia, anxious, chills, interrupted sleep Objective: 12/18/17 11:30 Vital Signs Temperature 97.0 F L 12/18/17 10:54 Pulse Rate 50 L 12/18/17 10:54 Respiratory Rate 18 12/18/17 10:54 Blood Pressure 133/74 12/18/17 10:54 O2 Sat by Pulse Oximetry (%) Laboratory Last Values WBC 6.0 K/mm3 (4.0-10.0) 12/17/17 07:00 RBC 5.07 M/mm3 (4.00-5.60) 12/17/17 07:00 Hgb 11.7 GM/dL (11.7-16.9) 12/17/17 07:00 Hct 37.2 % (35.4-49) 12/17/17 07:00 MCV 73.4 fl (80-96) L 12/17/17 07:00 MCH 23.1 pg (25.7-33.7) L 12/17/17 07:00 MCHC 31.5 g/dl (32.0-35.9) L 12/17/17 07:00 RDW 17.4 % (11.9-15.9) H 12/17/17 07:00 Plt Count 275 K/MM3 (134-434) 12/17/17 07:00 MPV 7.6 fl (7.5-11.1) 12/17/17 07:00 Sodium 142 mmol/L (136-145) 12/17/17 07:00 Potassium 4.0 mmol/L (3.5-5.1) 12/17/17 07:00 Chloride 107 mmol/L (98-107) 12/17/17 07:00 Carbon Dioxide 25 mmol/L (21-32) 12/17/17 07:00 Anion Gap 10 MMOL/L (8-16) 12/17/17 07:00 BUN 16 mg/dL (7-18) 12/17/17 07:00 Creatinine 0.9 mg/dL (0.55-1.3) 12/17/17 07:00 Creat Clearance w eGFR > 60 (>60) 12/17/17 07:00 Random Glucose 83 mg/dL (74-106) 12/17/17 07:00 Calcium 8.4 mg/dL (8.5-10.1) L 12/17/17 07:00 Total Bilirubin 0.6 mg/dL (0.2-1) 12/17/17 07:00 AST 36 U/L (15-37) 12/17/17 07:00 ALT 32 U/L (13-61) 12/17/17 07:00 Alkaline Phosphatase 68 U/L (45-117) 12/17/17 07:00 Total Protein 6.6 g/dl (6.4-8.2) 12/17/17 07:00 Albumin 3.6 g/dl (3.4-5.0) 12/17/17 07:00 Urine Color Ltyellow 12/16/17 15:48 Urine Appearance Clear 12/16/17 15:48 Urine pH 5.0 (5.0-8.0) 12/16/17 15:48 Ur Specific [place] 1.020 (1.010-1.035) 12/16/17 15:48 Urine Protein Negative (NEGATIVE) 12/16/17 15:48 Urine Glucose (UA) Negative (NEGATIVE) 12/16/17 15:48 Urine Ketones Negative (NEGATIVE) 12/16/17 15:48 Urine Blood Negative (NEGATIVE) 12/16/17 15:48 Urine Nitrite Negative (NEGATIVE) 12/16/17 15:48 Urine Bilirubin Negative (<2.0 mg/dL) 12/16/17 15:48 Urine Urobilinogen Negative mg/dL (0.2-1.0) 12/16/17 15:48 Ur Leukocyte Esterase Negative (NEGATIVE) 12/16/17 15:48 RPR Titer Reactive 1:1 (NONREACTIVE) H 12/17/17 07:00 T.pallidum Ab (MHA) Non reactive (NONREACTIVE) 12/17/17 07:00 Patient with hx of +RPR as a teenager and treated, no treatment needed at this time AOx3 no distress EENT WNL poor dentition , multiple caries no adventitious breath sounds full ROM ambulatory Assessment: 12/18/17 11:36 withdrawal sx Plan: increase fluids anbesol prn contine detox continue to monitor
[2017-12-18] MEDS: chlordiazePOXIDE 5 MG CAPSULE PO SCH ×2 (17:42→22:36)
[2017-12-18] MEDS: THIAMINE HCL 100 MG TABLET (FP) PO SCH (22:36)
[2017-12-18] MEDS: QUEtiapine FUMARATE 100 MG TABLET (FP) PO SCH (22:36)
[2017-12-19] MEDS: chlordiazePOXIDE HCL 25 MG CAPSULE PO PRN (03:03)
[2017-12-19] MEDS: NICOTINE POLACRILEX 2 MG GUM BUC PRN (03:13)
[2017-12-19] MEDS: chlordiazePOXIDE 5 MG CAPSULE PO SCH ×2 (05:28→10:31)
[2017-12-19 09:53] VITALS: BP 120/70; PULSE 56; TEMP 97.7
[2017-12-19] MEDS: PRENATAL VITAMINS W/ FOLIC ACID TABLET (FP) PO SCH (10:31)
[2017-12-19] MEDS: amLODIPine BESYLATE 10 MG TABLET (FP) PO SCH (10:32)
--- NOTE | 2017-12-19 14:54 | DS ---
[facility] Detox Discharge Summary Admission Date: 12/16/17 Discharge Date: 12/19/17 - History Present History: Alcohol Dependence, Cocaine Dependence Additional Comments: Patient suddenly decided to leave [place] stating that he has a new job at [employer] and has to be at work by 4:30pm today. Patient reported experiencing sweating and interrupted sleep. Patient encouraged to complete detox but without success. Patient instructed to call 911 if any withdrawal symptoms or feeling sick and to see his PCP within 3 days. Patient verbalized understanding and stated that he is feeling fine. Pertinent Past History: Asthma HLD HTN History of latent syphillis - Physical Exam Results Vital Signs: Vital Signs Temperature 97.7 F 12/19/17 09:53 Pulse Rate 56 L 12/19/17 09:53 Respiratory Rate 16 12/19/17 09:53 Blood Pressure 120/70 12/19/17 09:53 O2 Sat by Pulse Oximetry (%) Pertinent Admission Physical Exam Findings: Withdrawal symptoms Laboratory Tests 12/16/17 12/17/17 12/17/17 15:48 07:00 07:00 WBC 6.0 RBC 5.07 Hgb 11.7 Hct 37.2 MCV 73.4 L MCH 23.1 L MCHC 31.5 L RDW 17.4 H Plt Count 275 MPV 7.6 Sodium 142 Potassium 4.0 Chloride 107 Carbon Dioxide 25 Anion Gap 10 BUN 16 Creatinine 0.9 Creat Clearance w eGFR > 60 Random Glucose 83 Calcium 8.4 L Total Bilirubin 0.6 AST 36 ALT 32 Alkaline Phosphatase 68 Total Protein 6.6 Albumin 3.6 Urine Color Ltyellow Urine Appearance Clear Urine pH 5.0 Ur Specific [place] 1.020 Urine Protein Negative Urine Glucose (UA) Negative Urine Ketones Negative Urine Blood Negative Urine Nitrite Negative Urine Bilirubin Negative Urine Urobilinogen Negative Ur Leukocyte Esterase Negative RPR Titer T.pallidum Ab ([facility]) 12/17/17 07:00 WBC RBC Hgb Hct MCV MCH MCHC RDW Plt Count MPV Sodium Potassium Chloride Carbon Dioxide Anion Gap BUN Creatinine Creat Clearance w eGFR Random Glucose Calcium Total Bilirubin AST ALT Alkaline Phosphatase Total Protein Albumin Urine Color Urine Appearance Urine pH Ur Specific [place] Urine Protein Urine Glucose (UA) Urine Ketones Urine Blood Urine Nitrite Urine Bilirubin Urine Urobilinogen Ur Leukocyte Esterase RPR Titer Reactive 1:1 H T.pallidum Ab ([facility]) Non reactive Labs reviewed - Medication Discharge Medications: Ambulatory Orders Albuterol Sulfate Inhaler - [Ventolin HFA Inhaler -] 2 puff IH Q4H PRN #1 inhaler 09/07/17 Amlodipine Besylate [Norvasc -] 10 mg PO DAILY 30 Days #14 tablet 09/07/17 Ferrous Gluconate [Fergon -] 324 mg PO TID 12/16/17 Quetiapine Fumarate [Seroquel -] 50 mg PO HS 12/16/17 Quetiapine Fumarate [Seroquel] 100 mg PO HS #30 tablet 12/17/17 - Diagnosis (1) Alcohol dependence with uncomplicated withdrawal Current Visit: Yes Status: Acute (2) Asthma Current Visit: Yes Status: Chronic (3) Cocaine dependence, uncomplicated Current Visit: Yes Status: Chronic (4) History of syphilis Current Visit: Yes Status: Chronic (5) Bipolar disorder Current Visit: Yes Status: Chronic (6) HLD (hyperlipidemia) Current Visit: Yes Status: Chronic (7) HTN (hypertension) Current Visit: Yes Status: Chronic Qualifiers: Hypertension type: essential hypertension Qualified Code(s): I10 - Essential (primary) hypertension - AMA Did Patient Leave Against Medical Advice: Yes (Instructed to call 911 if withdrawal symptoms or feeling sick)
[2017-12-19] MEDS ORDERED: chlordiazePOXIDE HCL 10 MG CAPSULE PO SCH (17:00)
== END 2017-12-19 12:45 | disposition left against medical advice (07) | DRG 894 ==
LOC: YASAS 08:45 → Y3N 11:50
PROC: HZ2ZZZZ Detoxification Services for Substance Abuse Treatment (ICD-10-PCS; principal; 2017-12-16)
DX: F10.230 Alcohol dependence with withdrawal, uncomplicated (principal); F14.20 Cocaine dependence, uncomplicated; F17.210 Nicotine dependence, cigarettes, uncomplicated; F31.9 Bipolar disorder, unspecified; F25.9 Schizoaffective disorder, unspecified; F19.24 Other psychoactive substance dependence with psychoactive substance-induced mood disorder; I10 Essential (primary) hypertension; J45.909 Unspecified asthma, uncomplicated; E78.5 Hyperlipidemia, unspecified; K21.9 Gastro-esophageal reflux disease without esophagitis; G47.00 Insomnia, unspecified; Z91.14 Patient's other noncompliance with medication regimen; Z87.438 Personal history of other diseases of male genital organs
CPT/HCPCS: 36415; 80053; 81003; 85027; 86593; 86780; 90688; 93005; 93010; G0008

== ENCOUNTER 2018-01-05 12:03 | Inpatient (IN) | payer OTHER ==
[2018-01-05 12:50] VITALS: BMI 23.0
--- NOTE | 2018-01-05 18:41 | HP ---
CIWA Score - Admission Criteria [facility] Guidelines: Admission for Medically Managed Detox: Requires at least one of the followin. CIWA greater than 12 2. Seizures within the past 24 hours 3. Delirium tremens within the past 24 hours 4. Hallucinations within the past 24 hours 5. Acute intervention needed for co occurring medical disorder 6. Acute intervention needed for co occurring psychiatric disorder 7. Severe withdrawal that cannot be handled at a lower level of care (continued vomiting, continued diarrhea, abnormal vital signs) requiring intravenous medication and/or fluids 8. Admission ROS [facility] Chief Complaint: " I am here for rehab". Pt was in detox from 12/16-12/19, left early due to in family. Says he has not had any alcohol since discharge from detox and has smoked cocaine rarely. Allergies/Adverse Reactions: Allergies Allergy/AdvReac Type Severity Reaction Status Date / Time Sweet Potato Allergy Severe Hives Verified 01/05/18 16:43 No Known Drug Allergies Allergy Verified 01/05/18 16:43 squash Allergy Severe Hives Uncoded 01/05/18 16:43 History of Present Illness: h/o asthma (albuterol), HTN ( norvasc) and MH meds (seroquel) Urine tox: cocaine, Benzo (says this is from cocaine). - Ebola screening Have you traveled outside of the country in the last 21 days: No Have you had contact with anyone from an Ebola affected area: No Have you been sick,other than usual withdrawal symptoms: No Do you have a fever: No - Review of Systems Constitutional: No Symptoms Reported EENT: reports: No Symptoms Reported Respiratory: reports: No Symptoms reported Cardiac: reports: No Symptoms Reported GI: reports: No Symptoms Reported : reports: No Symptoms Reported Musculoskeletal: reports: No Symptoms Reported Integumentary: reports: No Symptoms Reported Neuro: reports: No Symptoms reported Endocrine: reports: No Symptoms Reported Hematology: reports: No Symptoms Reported Psychiatric: reports: No Sypmtoms Reported Other Systems: Reviewed and Negative Patient History - Patient Medical History Hx Anemia: No Hx Asthma: Yes (Pt is on MDI) Hx Chronic Obstructive Pulmonary Disease (COPD): No Hx Cancer: No Hx Cardiac Disorders: No Hx Congestive Heart Failure: No Hx Hypertension: Yes Hx Hypercholesterolemia: Yes (no med; DIET CONTROLLED) Hx Pacemaker: No HX Cerebrovascular Accident: No Hx Seizures: No Hx Dementia: No Hx Diabetes: No Hx Gastrointestinal Disorders: No Hx Liver Disease: No Hx Genitourinary Disorders: No Hx Sexually Transmitted Disorders: No Hx Renal Disease (ESRD): No Hx Thyroid Disease: No Hx Human Immunodeficiency Virus (HIV): No (last 03/27 negative hx at [facility]) Hx Hepatitis C: No Hx Depression: No Hx Suicide Attempt: No Hx Bipolar Disorder: Yes (ON MEDS ) Hx Schizophrenia: No - Patient Surgical History Past Surgical History: Yes Hx Neurologic Surgery: No Hx Cataract Extraction: No Hx Cardiac Surgery: No Hx Lung Surgery: No Hx Breast Surgery: No Hx Breast Biopsy: No Hx Abdominal Surgery: No Hx Appendectomy: No Hx Cholecystectomy: No Hx Genitourinary Surgery: No Hx Section: No Hx Orthopedic Surgery: Yes (left elbow and right wrist) Other Surgical History: sx to left elbow IN 1985,FX OF RIGHT WRIST WITH DEFORMITY 2008 Anesthesia Reaction: No - PPD History Previous Implant?: Yes Documented Results: Negative w/[facility] Yes Date: 06/03/17 Results: 0 mm - Smoking Cessation Smoking history: Current every day smoker Have you smoked in the past 12 months: Yes Aproximately how many cigarettes per day: 5 Cigars Per Day: 0 Hx Chewing Tobacco Use: No Initiated information on smoking cessation: Yes 'Breaking Loose' booklet given: 01/05/18 - Substance & Tx. History Hx Alcohol Use: Yes (last use over a week ago- occ beer, does not drink a liter of vodka ) Substance Use Type: Cocaine ($50/month) Hx Substance Use Treatment: Yes (detox here several times) - Substances Abused Alcohol Route: Oral Frequency: Daily Amount used: 1 liter vodka Age of first use: 13 Date of Last Use: 01/02/18 Cocaine Route: Smoking Frequency: Daily Amount used: $50 Age of first use: 13 Date of Last Use: 01/02/18 Family Disease History - Family Disease History Family Disease History: CA: Father ( - alcohol), Sister (six - one alcohol/cancer), Respiratory: Brother (three living - asthma, drugs and alcohol), Sister, Daughter (one), Other: Father, Mother (living - healthy), Brother, Sister, Son (one- healthy), Daughter Admission Physical Exam [facility] - Vital Signs Vital Signs: Vital Signs - 24 hr 11/28/18 12:48 Temperature 96.1 F L Pulse Rate 95 H Respiratory 20 Rate Blood Pressure 117/75 - Physical HEENTM: Yes: Within Normal Limits, EOMI, Hearing grossly Normal, Normal ENT Inspection, Pharynx Normal Respiratory: Yes: Within Normal Limits, Normal Breath Sounds Neck: Yes: Within Normal Limits Breast: Yes: Breast Exam Deferred, Within Normal Limits Cardiology: Yes: Within Normal Limits Abdominal: Yes: Within Normal Limits Genitourinary: Yes: Within Normal Limits Back: Yes: Within Normal Limits Musculoskeletal: Yes: Within Normal Limits Extremities: Yes: Within Normal Limits Neurological: Yes: Within Normal Limits Integumentary: Yes: Within Normal Limits Lymphatic: Yes: Within Normal Limits - Diagnostic (1) Alcohol dependence Current Visit: No Status: Acute (2) Nicotine dependence Current Visit: No Status: Acute Qualifiers: Nicotine product type: cigarettes Substance use status: in withdrawal Qualified Code(s): F17.213 - Nicotine dependence, cigarettes, with withdrawal (3) Asthma Current Visit: No Status: Chronic (4) Bipolar disorder Current Visit: No Status: Chronic (5) Cocaine dependence, uncomplicated Current Visit: No Status: Chronic (6) HLD (hyperlipidemia) Current Visit: No Status: Chronic (7) HTN (hypertension) Current Visit: No Status: Chronic Qualifiers: Hypertension type: essential hypertension Qualified Code(s): I10 - Essential (primary) hypertension Cleared for Admission [facility] - Detox or Rehab Claeared for Rehab Admission: Yes S Breath Alcohol Content Breath Alcohol Content: 0 Urine Drug Screen - Results Drug Screen Negative: No Urine Drug Screen Results: CHESETR-Cocaine, BZO-Benzodiazepines Inpatient Rehab Admission - Initial Determination Are CD services needed?: Yes Free of communicable disease: Yes Not in need of hospitalization: Yes - Rehab Admission Criteria Previous failed treatment: Yes Poor recovery environment: Yes Comorbidities: Yes Lacks judgement: No Patient is meeting Inpatient Rehab admission criteria:: Yes (Pt has had several admissions for alcohol and cocaine use. )
[2018-01-05] MEDS ORDERED: MENTHOL/PHENOL 1 EACH UD MM PRN (18:49)
[2018-01-05] MEDS ORDERED: MAG HYDROX/AL HYDROX/SIMETH 30 ML UNIT-DOSE CUP PO PRN (18:49)
[2018-01-05] MEDS ORDERED: IBUPROFEN 400 MG TABLET (FP) PO PRN (18:49)
[2018-01-05] MEDS ORDERED: MAGNESIUM HYDROX 2400MG/30ML ORAL SUSPENSION 30 ML CUP PO PRN (18:49)
[2018-01-05] MEDS ORDERED: MAGNESIUM CITRATE 300 ML BOTTLE PO PRN (18:49)
[2018-01-05] MEDS ORDERED: P-EPHED 60MG/TRIPROLIDI 2.5MG TABLET PO PRN (18:49)
[2018-01-05] MEDS ORDERED: guaiFENesin/D-METHORPHAN HB 10 ML UNIT-DOSE CUPS PO PRN (18:49)
[2018-01-05] MEDS ORDERED: LOPERAMIDE HCL 2 MG CAPSULE PO PRN (18:49)
[2018-01-05] MEDS ORDERED: ACETAMINOPHEN 325 MG TABLET (FP) PO PRN (18:49)
[2018-01-05] MEDS ORDERED: ALBUTEROL SO4 8 GM HFA INHALER IH PRN (18:55)
[2018-01-05] MEDS ORDERED: MELATONIN 5 MG TABLETS PO PRN (22:00)
[2018-01-05] MEDS: THIAMINE HCL 100 MG TABLET (FP) PO SCH (22:02)
[2018-01-05] MEDS: QUEtiapine FUMARATE 50 MG TABLET PO SCH (22:02)
[2018-01-05 23:20] LABS: URINE APPEARANCE CLEAR; URINE BILIRUBIN NEGATIVE (<2.0 mg/dL); URINE COLOR YELLOW; URINE GLUCOSE (UA) NEGATIVE (NEGATIVE); URINE KETONE TRACE (NEGATIVE); URINE LEUK ESTERASE NEGATIVE (NEGATIVE); URINE NITRITE NEGATIVE (NEGATIVE); URINE PROTEIN 1+ (NEGATIVE)
[2018-01-05 23:23] LABS: URINE HYALINE CAST 13 /lpf; URINE MUCUS RARE
[2018-01-06] MEDS: PRENATAL VITAMINS W/ FOLIC ACID TABLET (FP) PO SCH (09:47)
[2018-01-06] MEDS: amLODIPine BESYLATE 10 MG TABLET (FP) PO SCH (09:47)
[2018-01-06] MEDS: NICOTINE POLACRILEX 4 MG GUM BUC PRN ×4 (09:49→21:39)
[2018-01-06 10:34] LABS: BASO % 0.2 % (0-2.0); EOS % 3.6 % (0-4.5); HEMATOCRIT 37.5 % (35.4-49); HEMOGLOBIN 12.5 GM/dL (11.7-16.9); LYMPH % 46.8 % (8-40); MCH 24.5 pg (25.7-33.7); MCHC 33.2 g/dl (32.0-35.9); MEAN CELL VOLUME 73.8 fl (80-96); MEAN PLT VOLUME 7.3 fl (7.5-11.1); MONO % 8.5 % (3.8-10.2); NEUT % 40.9 % (42.8-82.8); PLATELET COUNT 337 K/MM3 (134-434); RBC 5.09 M/mm3 (4.00-5.60); RDW 18.6 % (11.9-15.9); WHITE BLOOD COUNT 7.3 K/mm3 (4.0-10.0)
[2018-01-06 11:19] LABS: ALBUMIN 3.5 g/dl (3.4-5.0); ALK PHOS 75 U/L (45-117); ANION GAP 11 MMOL/L (8-16); BILIRUBIN,TOTAL 0.9 mg/dL (0.2-1); BLOOD UREA NITROGEN 16 mg/dL (7-18); CALCIUM 8.8 mg/dL (8.5-10.1); CHLORIDE 108 mmol/L (98-107); CO2 26 mmol/L (21-32); CREATININE 1.1 mg/dL (0.55-1.3); GLUCOSE,RANDOM 82 mg/dL (74-106); POTASSIUM 3.8 mmol/L (3.5-5.1); SGOT/AST 18 U/L (15-37); SGPT/ALT 23 U/L (13-61); SODIUM 145 mmol/L (136-145); TOT PROT 6.3 g/dl (6.4-8.2)
[2018-01-06 13:20] LABS: RPR REACTIVE 1:1 (NONREACTIVE)
[2018-01-06] MEDS: QUEtiapine FUMARATE 50 MG TABLET PO SCH (21:39)
[2018-01-06] MEDS: THIAMINE HCL 100 MG TABLET (FP) PO SCH (21:39)
[2018-01-07] MEDS: amLODIPine BESYLATE 10 MG TABLET (FP) PO SCH (10:18)
[2018-01-07] MEDS: PRENATAL VITAMINS W/ FOLIC ACID TABLET (FP) PO SCH (10:18)
[2018-01-07] MEDS: NICOTINE POLACRILEX 4 MG GUM BUC PRN ×3 (10:18→21:33)
[2018-01-07 10:48] LABS: TREPONEMA ANTIBODY NON REACTIVE (NONREACTIVE)
--- NOTE | 2018-01-07 16:24 | HP ---
Psychiatrist Admission - Data Date of interview: 01/07/18 Admission source: Self-referred Identifying data: Admission to [address] for this 47 y/o AA male, discharged on 12/19/17 from the detoxification unit at [address] [place] [address], who returned, two days ago, to [facility] seeking rehabilitation treatment for alcohol and cocaine (crack) dependence. Patient is , a father of two, homeless, unemployed and supported on SSI/SSD benefits. Medical History: Antecedent of treatment for syphilis, GERD, bronchial asthma, hypertension, hypercholesterolemia and a distant history of orthosurgery for fracture of left elbow + right wrist. Psychiatric History: No change in self-report since encounter of 12/17/17. Details as follows : long-standing history of psychiatric disturbances (age 13) . History of several psychiatric hospitalizations ([facility], [facility], [facility] and [facility]). Patient is diagnosed with Schizoaffective Disorder. Mr Sun is followed at the [facility] mental health clinic in [facility]. Managed with seroquel 100 mg/hs. Chronically non adherent to medications. Patient denies history of suicide attempts. Physical/Sexual Abuse/Trauma History: Patient denies. Additional Comment: Profile of substance abuse. Details in current [facility] report : Smoking history: Current every day smoker. Have you smoked in the past 12 months: Yes. Aproximately how many cigarettes per day: 5. Cigars Per Day: 0. Hx Chewing Tobacco Use: No. Initiated information on smoking cessation: Yes. ' Breaking Loose' booklet given: 01/05/18. - Substance & Tx. History. Hx Alcohol Use: Yes (last use over a week ago- occ beer, does not drink a liter of vodka ). Substance Use Type: Cocaine ($50/month). Hx Substance Use Treatment: Yes (detox here several times). - Substances Abused. Alcohol. Route: Oral. Frequency: Daily. Amount used: 1 liter vodka. Age of first use: 13. Date of Last Use: 01/02/18. Cocaine. Route: Smoking. Frequency: Daily. Amount used: $50. Age of first use: 13. Date of Last Use: 01/02/18. Urine Drug Screen Results: [place]-Cocaine, BZO-Benzodiazepines. Noted. Vital Signs: Vital Signs - 24 hr 11/30/18 11/30/18 11/30/18 00:30 03:30 06:39 Temperature 97.9 F Pulse Rate 75 Respiratory 18 18 18 Rate Blood Pressure 129/83 01/07/18 09:30 Temperature Pulse Rate 93 H Respiratory 18 Rate Blood Pressure 135/74 Allergies/Adverse Reactions: Allergies Allergy/AdvReac Type Severity Reaction Status Date / Time Sweet Potato Allergy Severe Hives Verified 01/05/18 16:43 No Known Drug Allergies Allergy Verified 01/05/18 16:43 squash Allergy Severe Hives Uncoded 01/05/18 16:43 - Substance Abuse/Tx History Hx Alcohol Use: Yes (since age 13) Hx Substance Use: Yes (crack, alcohol and nicotine) Substance Use Type: Alcohol (consumes one liter of vodka daily), Cocaine ( admits to spending 50 dollars a month on crack) Hx Substance Use Treatment: Yes Mental Status Exam - Mental Status Exam Alert and Oriented to: Time, Place, Person Cognitive Function: Grossly Intact Patient Appearance: Unkempt, Disheveled (malodorous) Mood: Hopeful, Happy Affect: Mood Congruent, Normal Range Patient Behavior: Appropriate, Cooperative Speech Pattern: Clear, Appropriate Voice Loudness: Normal Thought Process: Goal Oriented Thought Disorder: Not Present Hallucinations: Denies Suicidal Ideation: Denies Homicidal Ideation: Denies Insight/Judgement: Fair Sleep: Poorly, Difficulty falling asleep Appetite: Good Muscle strength/Tone: Normal Gait/Station: Normal Psychiatric Findings - Problem List ([place] 1, 2,3) (1) Alcohol dependence with uncomplicated withdrawal Current Visit: Yes Status: Acute (2) Cocaine dependence, uncomplicated Current Visit: Yes Status: Acute (3) Nicotine dependence Current Visit: Yes Status: Acute Qualifiers: Nicotine product type: cigarettes Substance use status: in withdrawal Qualified Code(s): F17.213 - Nicotine dependence, cigarettes, with withdrawal (4) Schizoaffective disorder Current Visit: Yes Status: Chronic Comment: History. As per records. Patient is not compliant with OPD care + medications. (5) Insomnia Current Visit: Yes Status: Acute (6) Non compliance w medication regimen Current Visit: Yes Status: Chronic - Initial Treatment Plan Initial Treatment Plan: Psychoeducation. Sleep hygiene. AA meetings. Group/ supportive therapy. Patient will be encouraged to improve his personal hygiene. Seroquel 50 mg po hs (patient's request). Side effects/benefits discussed with the patient. Agreement (verbal) received from the patient. Observation.
[2018-01-07] MEDS: QUEtiapine FUMARATE 50 MG TABLET PO SCH (21:33)
[2018-01-07] MEDS: THIAMINE HCL 100 MG TABLET (FP) PO SCH (21:33)
[2018-01-08] MEDS: PRENATAL VITAMINS W/ FOLIC ACID TABLET (FP) PO SCH (10:21)
[2018-01-08] MEDS: amLODIPine BESYLATE 10 MG TABLET (FP) PO SCH (10:21)
[2018-01-08] MEDS: NICOTINE POLACRILEX 4 MG GUM BUC PRN ×4 (10:21→21:40)
[2018-01-08] MEDS ORDERED: COLLOIDAL OATMEAL 1 BAR EACH TP PRN (12:30)
[2018-01-08] MEDS: QUEtiapine FUMARATE 50 MG TABLET PO SCH (21:39)
[2018-01-08] MEDS: THIAMINE HCL 100 MG TABLET (FP) PO SCH (21:39)
[2018-01-09] MEDS: amLODIPine BESYLATE 10 MG TABLET (FP) PO SCH (10:11)
[2018-01-09] MEDS: PRENATAL VITAMINS W/ FOLIC ACID TABLET (FP) PO SCH (10:11)
[2018-01-09] MEDS: NICOTINE POLACRILEX 4 MG GUM BUC PRN ×3 (10:12→21:21)
[2018-01-09] MEDS: QUEtiapine FUMARATE 50 MG TABLET PO SCH (21:20)
[2018-01-09] MEDS: THIAMINE HCL 100 MG TABLET (FP) PO SCH (21:20)
[2018-01-10 06:51] VITALS: TEMP 97.9
[2018-01-10 09:15] VITALS: BP 143/85; PULSE 88
--- NOTE | 2018-01-10 09:16 | PN ---
[facility] Progress Note Note: PATIENT SEEN FOR C/O ITCHING TO SKIN. REPORTS H/O ECZEMA WHICH HAS BEEN TREATED WITH HYDROCORTISONE IN PAST. PATIENT DENIES FEVER, RASH AND LESIONS TO SKIN. Vital Signs Temperature 97.9 F 01/10/18 06:50 Pulse Rate 81 01/10/18 06:50 Respiratory Rate 18 01/10/18 06:50 Blood Pressure 133/89 01/10/18 06:50 O2 Sat by Pulse Oximetry (%) Laboratory Tests 01/05/18 01/06/18 01/06/18 22:00 07:00 07:00 WBC 7.3 RBC 5.09 Hgb 12.5 Hct 37.5 MCV 73.8 L MCH 24.5 L MCHC 33.2 RDW 18.6 H Plt Count 337 D MPV 7.3 L Absolute Neuts (auto) 3.0 Neutrophils % 40.9 L D Lymphocytes % 46.8 H D Monocytes % 8.5 D Eosinophils % 3.6 D Basophils % 0.2 Nucleated RBC % 0 Sodium 145 Potassium 3.8 Chloride 108 H Carbon Dioxide 26 Anion Gap 11 BUN 16 Creatinine 1.1 Creat Clearance w eGFR > 60 Random Glucose 82 Calcium 8.8 Total Bilirubin 0.9 AST 18 ALT 23 Alkaline Phosphatase 75 Total Protein 6.3 L Albumin 3.5 Urine Color Yellow Urine Appearance Clear Urine pH 6.0 Ur Specific [place] 1.014 Urine Protein 1+ H Urine Glucose (UA) Negative Urine Ketones Trace H Urine Blood Negative Urine Nitrite Negative Urine Bilirubin Negative Urine Urobilinogen 2.0 Ur Leukocyte Esterase Negative Urine WBC (Auto) 3 Urine RBC (Auto) <1 Hyaline Casts 13 Urine Mucus Rare RPR Titer T.pallidum Ab (A) 01/06/18 07:00 WBC RBC Hgb Hct MCV MCH MCHC RDW Plt Count MPV Absolute Neuts (auto) Neutrophils % Lymphocytes % Monocytes % Eosinophils % Basophils % Nucleated RBC % Sodium Potassium Chloride Carbon Dioxide Anion Gap BUN Creatinine Creat Clearance w eGFR Random Glucose Calcium Total Bilirubin AST ALT Alkaline Phosphatase Total Protein Albumin Urine Color Urine Appearance Urine pH Ur Specific [place] Urine Protein Urine Glucose (UA) Urine Ketones Urine Blood Urine Nitrite Urine Bilirubin Urine Urobilinogen Ur Leukocyte Esterase Urine WBC (Auto) Urine RBC (Auto) Hyaline Casts Urine Mucus RPR Titer Reactive 1:1 H T.pallidum Ab ([facility]) Non reactive PE: ALERT AND ORIENTED X 3 SKIN WARM AND DRY, NO VISIBLE ABRASIONS AND RASHES. EXT FULL ROM, NO EDEMA AMB AD AMAN A/P: PRURITIS WILL ORDER HYDROCORTISONE 0.5% BID CONTINUE TO MONITOR CLINICALLY
[2018-01-10] MEDS ORDERED: HYDROCORTISONE 0.5% TOPICAL OINTMENT TUBE TP SCH (10:00)
[2018-01-10] MEDS: amLODIPine BESYLATE 10 MG TABLET (FP) PO SCH (10:22)
[2018-01-10] MEDS: PRENATAL VITAMINS W/ FOLIC ACID TABLET (FP) PO SCH (10:22)
[2018-01-10] MEDS: NICOTINE POLACRILEX 4 MG GUM BUC PRN (10:24)
== END 2018-01-10 13:00 | disposition left against medical advice (07) | DRG 894 ==
LOC: YASAS 12:03 → Y3W 19:06
PROVIDERS: ADMIT Psychiatry & Neurology Psychiatry
PROC: HZ42ZZZ Group Counseling for Substance Abuse Treatment, Cognitive-Behavioral (ICD-10-PCS; principal; 2018-01-05)
DX: F10.230 Alcohol dependence with withdrawal, uncomplicated (principal); F14.20 Cocaine dependence, uncomplicated; F17.213 Nicotine dependence, cigarettes, with withdrawal; F31.9 Bipolar disorder, unspecified; F25.9 Schizoaffective disorder, unspecified; I10 Essential (primary) hypertension; J45.909 Unspecified asthma, uncomplicated; E78.00 Pure hypercholesterolemia, unspecified; L29.8 Other pruritus; G47.00 Insomnia, unspecified; Z91.19 Patient's noncompliance with other medical treatment and regimen; Z59.0 Homelessness
CPT/HCPCS: 36415; 80053; 81003; 81015; 85025; 86593; 86780

== ENCOUNTER 2019-01-14 10:28 | Inpatient (IN) | payer MEDICARE, OTHER ==
[2019-01-14 11:06] VITALS: BMI 28.2
--- NOTE | 2019-01-14 11:21 | HP ---
CIWA Score Nausea/Vomitin Muscle Tremors: 3 Anxiety: 3 Agitation: 2 Paroxysmal Sweats: No Perspiration Orientation: 0-Oriented Tacttile Disturbances: 1-Very Mild Itch/Numbness Auditory Disturbances: 0-None Visual Disturbances: 0-None Headache: 2-Mild CIWA-Ar Total Score: 13 - Admission Criteria OASAS Guidelines: Admission for Medically Managed Detox: Requires at least one of the followin. CIWA greater than 12 2. Seizures within the past 24 hours 3. Delirium tremens within the past 24 hours 4. Hallucinations within the past 24 hours 5. Acute intervention needed for co occurring medical disorder 6. Acute intervention needed for co occurring psychiatric disorder 7. Severe withdrawal that cannot be handled at a lower level of care (continued vomiting, continued diarrhea, abnormal vital signs) requiring intravenous medication and/or fluids 8. Admitting History and Physical - Admission Chief Complaint: i need help to stop drinking alcohol and cocaine History of Present Illness: this 48 years old male with alcohol and cocaine dependence,seeking detox History Source: Patient Limitations to Obtaining History: No Limitations - Past Medical History Cardiovascular: Yes: HTN - Past Surgical History Additional Past Surgical History: fx left elbow in 1985 - Smoking History Smoking history: Current every day smoker Have you smoked in the past 12 months: Yes Aproximately how many cigarettes per day: 10 - Alcohol/Substance Use Hx Alcohol Use: Yes (since age 13) History of Substance Use: reports: Cocaine - Social History Usual Living Arrangement: Yes: Alone Occupation: unemployed History of Recent Travel: No Other Social History: living alone,smoke 1/2 pack/day,unemployed Admission ROS [facility] - HPI Chief Complaint: i need help to stop drinking alcohol and cocaine Allergies/Adverse Reactions: Allergies Allergy/AdvReac Type Severity Reaction Status Date / Time Sweet Potato Allergy Severe Hives Verified 01/14/19 10:54 No Known Drug Allergies Allergy Verified 01/14/19 10:54 squash Allergy Severe Hives Uncoded 01/14/19 10:54 History of Present Illness: this 48 years old male with alcohol and cocaine dependence,seeking detox, seeking detox, withdrawal symptom multiple admissions in detox,last 12/16/17 to 12/19/17 denied seizure denied syncope nicotine 1/2 pack/day longest sobriety 7 years plan to go to rehab depression last taken 4 days ago plan for rehab after detox Exam Limitations: No Limitations - Ebola screening Have you traveled outside of the country in the last 21 days: No Have you had contact with anyone from an Ebola affected area: No - Review of Systems Constitutional: Loss of Appetite, Malaise, Night Sweats, Changes in sleep EENT: reports: Tearing, Nose Congestion Respiratory: reports: No Symptoms reported Cardiac: reports: No Symptoms Reported GI: reports: Diarrhea, Nausea, Poor Appetite : reports: No Symptoms Reported Musculoskeletal: reports: Back Pain, Muscle Pain Integumentary: reports: Dryness Neuro: reports: Tremors Endocrine: reports: No Symptoms Reported Hematology: reports: No Symptoms Reported Psychiatric: reports: No Sypmtoms Reported, Judgement Intact, Mood/Affect Appropiate, Orientated x3 Patient History - Patient Medical History Hx Anemia: No Hx Asthma: Yes (Pt is on MDI) Hx Chronic Obstructive Pulmonary Disease (COPD): No Hx Cancer: No Hx Cardiac Disorders: No Hx Congestive Heart Failure: No Hx Hypertension: Yes (on med) Hx Hypercholesterolemia: Yes (no med; DIET CONTROLLED) Hx Pacemaker: No HX Cerebrovascular Accident: No Hx Seizures: No Hx Dementia: No Hx Diabetes: No Hx Gastrointestinal Disorders: No Hx Liver Disease: No Hx Genitourinary Disorders: No Hx Sexually Transmitted Disorders: No Hx Renal Disease (ESRD): No Hx Thyroid Disease: No Hx Human Immunodeficiency Virus (HIV): No (last 03/27 negative hx at [facility]) Hx Hepatitis C: No Hx Depression: No Hx Suicide Attempt: No Hx Bipolar Disorder: Yes (ON MEDS ) Hx Schizophrenia: No Other Medical History: no suicidal,no homicidal - Patient Surgical History Past Surgical History: Yes Hx Neurologic Surgery: No Hx Cataract Extraction: No Hx Cardiac Surgery: No Hx Lung Surgery: No Hx Breast Surgery: No Hx Breast Biopsy: No Hx Abdominal Surgery: No Hx Appendectomy: No Hx Cholecystectomy: No Hx Genitourinary Surgery: No Hx Section: No Hx Orthopedic Surgery: Yes (left elbow and right wrist) Other Surgical History: sx to left elbow IN 1985,FX OF RIGHT WRIST WITH DEFORMITY 2008 Anesthesia Reaction: No - PPD History Previous Implant?: Yes Documented Results: Negative w/proof Implanted On Prior [facility] Admission?: Yes Date: 06/03/17 Results: 0 mm PPD to be Administered?: No - Smoking Cessation Smoking history: Current every day smoker Have you smoked in the past 12 months: Yes Aproximately how many cigarettes per day: 10 Cigars Per Day: 0 Hx Chewing Tobacco Use: No Initiated information on smoking cessation: Yes 'Breaking Loose' booklet given: 01/14/19 - Substance & Tx. History Hx Alcohol Use: Yes Hx Substance Use: Yes Substance Use Type: Alcohol, Cocaine Hx Substance Use Treatment: Yes ([facility] 12/16/17 to 12/19/17) - Substances abused Alcohol Substance route: Oral Frequency: Daily Amount used: 1 -2 LITER VODKA/ GIN Age of first use: 13 Date of last use: 01/14/19 Cocaine Substance route: Smoking Frequency: 1-3 times last 30 days Amount used: $25 Age of first use: 16 Date of last use: 01/12/19 Admission Physical Exam [facility] - Vital Signs Vital Signs: Vital Signs - 24 hr 01/14/19 11:01 Temperature 97.1 F L Pulse Rate 94 H Respiratory 18 Rate Blood Pressure 154/93 - Physical General Appearance: Yes: Moderate Distress, Tremorous, Irritable, Anxious HEENTM: Yes: Normal ENT Inspection, AMALIA, Pharynx Normal Respiratory: Yes: Lungs Clear, Normal Breath Sounds, No Respiratory Distress Neck: Yes: Within Normal Limits, Supple, Trachea in good position Breast: Yes: Within Normal Limits Cardiology: Yes: Within Normal Limits, Regular Rhythm, Regular Rate, S1, S2 Abdominal: Yes: Normal Bowel Sounds, Non Tender, Flat, Soft Genitourinary: Yes: Within Normal Limits Back: Yes: Muscle Spasm Musculoskeletal: Yes: Back pain, Muscle Pain Extremities: Yes: Tremors, Other (scar in left elbow) Neurological: Yes: wet washer machine II-XII NML intact, Fully Oriented, Alert, Motor Strength 5/5 Integumentary: Yes: Dry Lymphatic: Yes: Within Normal Limits - Diagnostic (1) Alcohol dependence with uncomplicated withdrawal Current Visit: No Status: Acute (2) Cocaine dependence, uncomplicated Current Visit: No Status: Acute (3) Nicotine dependence Current Visit: No Status: Acute Qualifiers: Nicotine product type: cigarettes Substance use status: in withdrawal Qualified Code(s): F17.213 - Nicotine dependence, cigarettes, with withdrawal (4) Bipolar disorder Current Visit: No Status: Chronic (5) Deformity of right wrist Current Visit: No Status: Chronic (6) Essential hypertension Current Visit: No Status: Chronic (7) HTN (hypertension) Current Visit: No Status: Chronic Qualifiers: Hypertension type: essential hypertension Qualified Code(s): I10 - Essential (primary) hypertension Cleared for Admission [facility] - Detox or Rehab S Level of Care: Medically Managed (for detox ativan regimen) Breathalyzer - Breathalyzer Breathalyzer: 0.057 Urine Drug Screen - Test Device Lot number: [id number] Expiration date: 09/07/20 - Control Is test valid?: Yes - Results Drug screen NEGATIVE: No Urine drug screen results: [facility] Admission - Rehab Decision to Admit Inpatient rehab admission?: No
[2019-01-14] MEDS ORDERED: MAG HYDROX/AL HYDROX/SIMETH 30 ML UNIT-DOSE CUP PO PRN (11:41)
[2019-01-14] MEDS ORDERED: BISMUTH SUBSALICYLATE 524 MG/30 ML UD PO PRN (11:41)
[2019-01-14] MEDS ORDERED: MENTHOL/PHENOL 1 EACH UD MM PRN (11:41)
[2019-01-14] MEDS ORDERED: ACETAMINOPHEN 325 MG TABLET (FP) PO PRN ×2 (11:41)
[2019-01-14] MEDS ORDERED: MAGNESIUM HYDROX 2400MG/30ML ORAL SUSPENSION 30 ML CUP PO PRN (11:41)
[2019-01-14] MEDS ORDERED: IBUPROFEN 400 MG TABLET (FP) PO PRN (11:41)
[2019-01-14] MEDS ORDERED: LORazepam 1 MG TABLET PO PRN (11:41)
[2019-01-14] MEDS ORDERED: METHOCARBAMOL 500 MG TABLET PO PRN (11:41)
[2019-01-14] MEDS ORDERED: hydrOXYzine PAMOATE 25 MG CAPSULE (FP) PO PRN (11:41)
[2019-01-14] MEDS ORDERED: MAGNESIUM CITRATE 300 ML BOTTLE PO PRN (11:41)
[2019-01-14] MEDS ORDERED: ALBUTEROL SO4 8 GM HFA INHALER IH PRN (11:44)
[2019-01-14] MEDS: amLODIPine BESYLATE 10 MG TABLET (FP) PO SCH (13:02)
[2019-01-14] MEDS: ATENOLOL 50 MG TABLET (FP) PO SCH (13:39)
[2019-01-14] MEDS: LORazepam 2 MG TABLET PO SCH ×2 (18:18→22:05)
[2019-01-14] MEDS: NICOTINE POLACRILEX 2 MG GUM BUC PRN (20:17)
[2019-01-14] MEDS: MELATONIN 5 MG TABLETS PO PRN (22:05)
[2019-01-14] MEDS: THIAMINE HCL 100 MG TABLET (FP) PO SCH (22:05)
[2019-01-15] MEDS: LORazepam 2 MG TABLET PO SCH ×4 (05:36→22:18)
--- NOTE | 2019-01-15 09:13 | CONSULT ---
[facility] Psychiatric Consult - Data Date of interview: 01/15/19 Admission source: [facility] Identifying data: Patient is a 48 year old single male, unemployed, father of three, domiciled, and is currently supported by SSI/SSD. This is one of multiple admissions for patient. Patient admitted to for alcohol and cocaine dependence. Substance Abuse History: - Smoking Cessation. Smoking history: Current every day smoker. Have you smoked in the past 12 months: Yes. Aproximately how many cigarettes per day: 10. Cigars Per Day: 0. Hx Chewing Tobacco Use: No. Initiated information on smoking cessation: Yes. 'Breaking Loose' booklet given : 01/14/19. - Substance & Tx. History. Hx Alcohol Use: Yes. Hx Substance Use : Yes. Substance Use Type: Alcohol, Cocaine. Hx Substance Use Treatment: Yes ( [facility] 12/16/17 to 12/19/17). - Substances abused. Alcohol. Substance route: Oral. Frequency: Daily. Amount used: 1 -2 LITER VODKA/ GIN. Age of first use : 13. Date of last use: 01/14/19. Cocaine. Substance route: Smoking. Frequency: 1-3 times last 30 days. Amount used: $25. Age of first use: 16. Date of last use: 01/12/19 Medical History: asthma, hypertension, hypercholesterolemia, sx to left elbow in 1995, fx of right wrist with deformity 2008 Psychiatric History: Mr. gaitan reports history of multiple psychiatric hospitalizations most recently last year at [facility] due to mood instability. Diagnosis of Bipolar disorder. As per previous notes patient has also been hospitalized at [facility], [facility] in [facility], and [facility]. Additional diagnosis of schizoaffective disorder and past treatments with Zyprexa, trazodone, seroquel, and depakote. States that he is currently provided with outpatient psychiatric care at [facility] outpatient program and is prescribed Seroquel 200mg HS + Depakote 500mg BID. Reports most recently taking his medications 3-5 days ago before relapsing. Patient denies history of suicide attempt. At present patient reports difficulty sleeping. Physical/Sexual Abuse/Trauma History: denies. Mental Status Exam - Mental Status Exam Alert and Oriented to: Time, Place, Person Cognitive Function: Good Patient Appearance: Well Groomed Mood: Withdrawn Affect: Mood Congruent Patient Behavior: Fatigued, Cooperative Speech Pattern: Appropriate Voice Loudness: Normal Thought Process: Goal Oriented Thought Disorder: Not Present Hallucinations: Denies Suicidal Ideation: Denies Homicidal Ideation: Denies Insight/Judgement: Poor Sleep: Poorly Appetite: Fair Muscle strength/Tone: Normal Gait/Station: Normal Psychiatric Findings - Problem List ([place] 1, 2,3) (1) Alcohol dependence with uncomplicated withdrawal Current Visit: No Status: Acute (2) Cocaine dependence, uncomplicated Current Visit: No Status: Acute (3) Nicotine dependence Current Visit: No Status: Acute Qualifiers: Nicotine product type: cigarettes Substance use status: in withdrawal Qualified Code(s): F17.213 - Nicotine dependence, cigarettes, with withdrawal (4) Schizoaffective disorder Current Visit: Yes Status: Chronic Qualifiers: Schizoaffective disorder type: bipolar Qualified Code(s): F25.0 - Schizoaffective disorder, bipolar type Comment: As per records.Non-compliance with medications. - Initial Treatment Plan Initial Treatment Plan: Psychoeducation provided. Detoxification in progress. Will order Seroquel 200mg HS + Depakote 500mg BID. Valproic acid level ordered for today (01/15/19). Benefits and side effects discussed. Verbal consent given.
[2019-01-15 10:05] LABS: ALBUMIN 3.4 g/dl (3.4-5.0); BILIRUBIN,TOTAL 0.6 mg/dL (0.2-1); BLOOD UREA NITROGEN 15.1 mg/dL (7-18); CALCIUM 8.3 mg/dL (8.5-10.1); CREATININE 0.9 mg/dL (0.55-1.3); POTASSIUM 3.7 mmol/L (3.5-5.1); TOT PROT 6.1 g/dl (6.4-8.2)
[2019-01-15 10:06] LABS: RPR REACTIVE 1:1 (NONREACTIVE)
[2019-01-15 10:08] LABS: HEMATOCRIT 36.2 % (35.4-49); HEMOGLOBIN 11.6 GM/dL (11.7-16.9); MCH 23.6 pg (25.7-33.7); MEAN CELL VOLUME 73.9 fl (80-96); MEAN PLT VOLUME 7.8 fl (7.5-11.1); PLATELET COUNT 247 K/MM3 (134-434); RBC 4.89 M/mm3 (4.00-5.60); RDW 17.9 % (11.9-15.9); WHITE BLOOD COUNT 7.3 K/mm3 (4.0-10.0)
[2019-01-15] MEDS: ATENOLOL 50 MG TABLET (FP) PO SCH (10:54)
[2019-01-15] MEDS: PRENATAL VITAMINS W/ FOLIC ACID TABLET (FP) PO SCH (10:54)
[2019-01-15] MEDS: amLODIPine BESYLATE 10 MG TABLET (FP) PO SCH (10:54)
[2019-01-15] MEDS: NICOTINE POLACRILEX 2 MG GUM BUC PRN ×3 (10:56→22:20)
[2019-01-15 12:11] LABS: TREPONEMA ANTIBODY NON REACTIVE (NONREACTIVE)
--- NOTE | 2019-01-15 14:57 | PN ---
S CIWA - CIWA Score Nausea/Vomitin-Mild Nausea/No Vomiting Muscle Tremors: 3 Anxiety: 3 Agitation: 2 Paroxysmal Sweats: 2 Orientation: 0-Oriented Tacttile Disturbances: 1-Very Mild Itch/Numbness Auditory Disturbances: 0-None Visual Disturbances: 0-None Headache: 0-None Present CIWA-Ar Total Score: 12 [facility]HS COWS - Scale Resting Pulse: 0= MT 80 or Below Sweatin= Chills/Flushing Restless Observation: 0= Sits Still Pupil Size: 1= Pupils >than Normal Bone or Joint Aches: 1= Mild Discomfort Runny Nose/ Eye Tearin= Nasal Congestion GI Upset > 30mins: 1= Stomach Cramp Tremor Observation of Outstretched Hands: 2= Slight Tremor Visible Yawning Observation: 0= None Anxiety or Irritability: 2=Irritable/Anxious Goose Flesh Skin: 3=Piloerection COWS Score: 12 S Progress Note (SOAP) Subjective: 48 years old male admitted on 01/14/19 for alcohol withdrawal sx management treated with ativan detox regimen feeling better today ate breakfast showered resting on bed comfortably Objective: 01/15/19 14:59 Vital Signs Temperature 97.7 F 01/15/19 13:25 Pulse Rate 70 01/15/19 13:25 Respiratory Rate 18 01/15/19 13:25 Blood Pressure 115/75 01/15/19 13:25 O2 Sat by Pulse Oximetry (%) Laboratory Last Values WBC 7.3 K/mm3 (4.0-10.0) 01/15/19 07:50 RBC 4.89 M/mm3 (4.00-5.60) 01/15/19 07:50 Hgb 11.6 GM/dL (11.7-16.9) L 01/15/19 07:50 Hct 36.2 % (35.4-49) 01/15/19 07:50 MCV 73.9 fl (80-96) L 01/15/19 07:50 MCH 23.6 pg (25.7-33.7) L 01/15/19 07:50 MCHC 32.0 g/dl (32.0-35.9) 01/15/19 07:50 RDW 17.9 % (11.9-15.9) H 01/15/19 07:50 Plt Count 247 K/MM3 (134-434) D 01/15/19 07:50 MPV 7.8 fl (7.5-11.1) 01/15/19 07:50 Sodium 142 mmol/L (136-145) 01/15/19 07:50 Potassium 3.7 mmol/L (3.5-5.1) 01/15/19 07:50 Chloride 106 mmol/L (98-107) 01/15/19 07:50 Carbon Dioxide 29 mmol/L (21-32) 01/15/19 07:50 Anion Gap 7 MMOL/L (8-16) L 01/15/19 07:50 BUN 15.1 mg/dL (7-18) 01/15/19 07:50 Creatinine 0.9 mg/dL (0.55-1.3) 01/15/19 07:50 Est GFR (CKD-EPI)AfAm 115.02 01/15/19 07:50 Est GFR (CKD-EPI)NonAf 99.24 01/15/19 07:50 Random Glucose 114 mg/dL (74-106) H 01/15/19 07:50 Calcium 8.3 mg/dL (8.5-10.1) L 01/15/19 07:50 Total Bilirubin 0.6 mg/dL (0.2-1) 01/15/19 07:50 AST 41 U/L (15-37) H 01/15/19 07:50 ALT 41 U/L (13-61) 01/15/19 07:50 Alkaline Phosphatase 67 U/L (45-117) 01/15/19 07:50 Total Protein 6.1 g/dl (6.4-8.2) L 01/15/19 07:50 Albumin 3.4 g/dl (3.4-5.0) 01/15/19 07:50 Valproic Acid 6.3 ug/mL (50-100) L 01/15/19 09:30 RPR Titer Reactive 1:1 (NONREACTIVE) H 01/15/19 07:50 T.pallidum Ab (MHA) Non reactive (NONREACTIVE) 01/15/19 07:50 HIV 1&2 Antibody Screen Negative 01/15/19 07:50 HIV P24 Antigen Negative 01/15/19 07:50 lab noted Assessment: 01/15/19 15:00 alcohol withdrawal sx Plan: continue ativan detox regimen
[2019-01-15] MEDS: THIAMINE HCL 100 MG TABLET (FP) PO SCH (22:18)
[2019-01-15] MEDS: QUEtiapine FUMARATE 100 MG TABLET (FP) PO SCH (22:18)
[2019-01-15] MEDS: DIVALPROEX SODIUM 500 MG TABLET E.C. PO SCH (22:18)
[2019-01-15] MEDS: MELATONIN 5 MG TABLETS PO PRN (22:18)
[2019-01-16] MEDS: LORazepam 1 MG TABLET PO SCH ×4 (05:10→22:20)
--- NOTE | 2019-01-16 09:21 | PN ---
S CIWA - CIWA Score Nausea/Vomitin-Mild Nausea/No Vomiting Muscle Tremors: 3 Anxiety: 2 Agitation: 1-Slight > Activity Paroxysmal Sweats: 2 Orientation: 0-Oriented Tacttile Disturbances: 1-Very Mild Itch/Numbness Auditory Disturbances: 0-None Visual Disturbances: 0-None Headache: 1-Very Mild CIWA-Ar Total Score: 11 S Progress Note (SOAP) Subjective: 48 years old male admitted on 01/14/19 for alcohol withdrawal sx management treated with ativan detox regimen trouble sleep at night limited conversation with staff prefers sleeping longer today Objective: 01/16/19 09:19 Vital Signs Temperature 96.8 F L 01/16/19 09:06 Pulse Rate 65 01/16/19 09:06 Respiratory Rate 18 01/16/19 09:06 Blood Pressure 121/70 01/16/19 09:06 O2 Sat by Pulse Oximetry (%) Laboratory Last Values WBC 7.3 K/mm3 (4.0-10.0) 01/15/19 07:50 RBC 4.89 M/mm3 (4.00-5.60) 01/15/19 07:50 Hgb 11.6 GM/dL (11.7-16.9) L 01/15/19 07:50 Hct 36.2 % (35.4-49) 01/15/19 07:50 MCV 73.9 fl (80-96) L 01/15/19 07:50 MCH 23.6 pg (25.7-33.7) L 01/15/19 07:50 MCHC 32.0 g/dl (32.0-35.9) 01/15/19 07:50 RDW 17.9 % (11.9-15.9) H 01/15/19 07:50 Plt Count 247 K/MM3 (134-434) D 01/15/19 07:50 MPV 7.8 fl (7.5-11.1) 01/15/19 07:50 Sodium 142 mmol/L (136-145) 01/15/19 07:50 Potassium 3.7 mmol/L (3.5-5.1) 01/15/19 07:50 Chloride 106 mmol/L (98-107) 01/15/19 07:50 Carbon Dioxide 29 mmol/L (21-32) 01/15/19 07:50 Anion Gap 7 MMOL/L (8-16) L 01/15/19 07:50 BUN 15.1 mg/dL (7-18) 01/15/19 07:50 Creatinine 0.9 mg/dL (0.55-1.3) 01/15/19 07:50 Est GFR (CKD-EPI)AfAm 115.02 01/15/19 07:50 Est GFR (CKD-EPI)NonAf 99.24 01/15/19 07:50 Random Glucose 114 mg/dL (74-106) H 01/15/19 07:50 Calcium 8.3 mg/dL (8.5-10.1) L 01/15/19 07:50 Total Bilirubin 0.6 mg/dL (0.2-1) 01/15/19 07:50 AST 41 U/L (15-37) H 01/15/19 07:50 ALT 41 U/L (13-61) 01/15/19 07:50 Alkaline Phosphatase 67 U/L (45-117) 01/15/19 07:50 Total Protein 6.1 g/dl (6.4-8.2) L 01/15/19 07:50 Albumin 3.4 g/dl (3.4-5.0) 01/15/19 07:50 Valproic Acid 6.3 ug/mL (50-100) L 01/15/19 09:30 RPR Titer Reactive 1:1 (NONREACTIVE) H 01/15/19 07:50 T.pallidum Ab (MHA) Non reactive (NONREACTIVE) 01/15/19 07:50 HIV 1&2 Antibody Screen Negative 01/15/19 07:50 HIV P24 Antigen Negative 01/15/19 07:50 lab noted Assessment: 01/16/19 09:21 alcohol withdrawal sx Plan: ativan detox regimen
[2019-01-16] MEDS: PRENATAL VITAMINS W/ FOLIC ACID TABLET (FP) PO SCH (10:33)
[2019-01-16] MEDS: ATENOLOL 50 MG TABLET (FP) PO SCH (10:33)
[2019-01-16] MEDS: amLODIPine BESYLATE 10 MG TABLET (FP) PO SCH (10:33)
[2019-01-16] MEDS: DIVALPROEX SODIUM 500 MG TABLET E.C. PO SCH ×2 (10:33→22:20)
[2019-01-16] MEDS: NICOTINE POLACRILEX 2 MG GUM BUC PRN ×3 (10:36→22:23)
[2019-01-16] MEDS: QUEtiapine FUMARATE 100 MG TABLET (FP) PO SCH (22:20)
[2019-01-16] MEDS: THIAMINE HCL 100 MG TABLET (FP) PO SCH (22:20)
[2019-01-17] MEDS ORDERED: LORazepam 0.5 MG TABLET PO PRN
[2019-01-17] MEDS: LORazepam 0.5 MG TABLET PO SCH ×2 (05:11→10:04)
[2019-01-17] MEDS ORDERED: ONDANSETRON *ODT* 4 MG TABLET SL ONE (09:08)
--- NOTE | 2019-01-17 09:17 | PN ---
S CIWA - CIWA Score Nausea/Vomitin-Mild Nausea/No Vomiting Muscle Tremors: 2 Anxiety: 2 Agitation: 0-Normal Activity Paroxysmal Sweats: 1-Minimal Palms Moist Orientation: 0-Oriented Tacttile Disturbances: 0-None Auditory Disturbances: 0-None Visual Disturbances: 0-None Headache: 0-None Present CIWA-Ar Total Score: 6 S Progress Note (SOAP) Subjective: 48 years old male admitted on 01/14/19 for alcohol withdrawal sx management treated with ativan detox regimen feeling mild nausea zofran 8 mg sl x 1 ate breakfast slept through the night discuss after with staff Objective: 01/17/19 09:16 Vital Signs Temperature 96.6 F L 01/17/19 06:10 Pulse Rate 68 01/17/19 06:10 Respiratory Rate 18 01/17/19 06:10 Blood Pressure 139/74 01/17/19 06:10 O2 Sat by Pulse Oximetry (%) Laboratory Last Values WBC 7.3 K/mm3 (4.0-10.0) 01/15/19 07:50 RBC 4.89 M/mm3 (4.00-5.60) 01/15/19 07:50 Hgb 11.6 GM/dL (11.7-16.9) L 01/15/19 07:50 Hct 36.2 % (35.4-49) 01/15/19 07:50 MCV 73.9 fl (80-96) L 01/15/19 07:50 MCH 23.6 pg (25.7-33.7) L 01/15/19 07:50 MCHC 32.0 g/dl (32.0-35.9) 01/15/19 07:50 RDW 17.9 % (11.9-15.9) H 01/15/19 07:50 Plt Count 247 K/MM3 (134-434) D 01/15/19 07:50 MPV 7.8 fl (7.5-11.1) 01/15/19 07:50 Sodium 142 mmol/L (136-145) 01/15/19 07:50 Potassium 3.7 mmol/L (3.5-5.1) 01/15/19 07:50 Chloride 106 mmol/L (98-107) 01/15/19 07:50 Carbon Dioxide 29 mmol/L (21-32) 01/15/19 07:50 Anion Gap 7 MMOL/L (8-16) L 01/15/19 07:50 BUN 15.1 mg/dL (7-18) 01/15/19 07:50 Creatinine 0.9 mg/dL (0.55-1.3) 01/15/19 07:50 Est GFR (CKD-EPI)AfAm 115.02 01/15/19 07:50 Est GFR (CKD-EPI)NonAf 99.24 01/15/19 07:50 Random Glucose 114 mg/dL (74-106) H 01/15/19 07:50 Calcium 8.3 mg/dL (8.5-10.1) L 01/15/19 07:50 Total Bilirubin 0.6 mg/dL (0.2-1) 01/15/19 07:50 AST 41 U/L (15-37) H 01/15/19 07:50 ALT 41 U/L (13-61) 01/15/19 07:50 Alkaline Phosphatase 67 U/L (45-117) 01/15/19 07:50 Total Protein 6.1 g/dl (6.4-8.2) L 01/15/19 07:50 Albumin 3.4 g/dl (3.4-5.0) 01/15/19 07:50 Valproic Acid 6.3 ug/mL (50-100) L 01/15/19 09:30 RPR Titer Reactive 1:1 (NONREACTIVE) H 01/15/19 07:50 T.pallidum Ab (MHA) Non reactive (NONREACTIVE) 01/15/19 07:50 HIV 1&2 Antibody Screen Negative 01/15/19 07:50 HIV P24 Antigen Negative 01/15/19 07:50 lab noted MHA non reactive Assessment: 01/17/19 09:17 alcohol withdrawal Plan: ativan regimen
[2019-01-17] MEDS: ATENOLOL 50 MG TABLET (FP) PO SCH (10:04)
[2019-01-17] MEDS: PRENATAL VITAMINS W/ FOLIC ACID TABLET (FP) PO SCH (10:04)
[2019-01-17] MEDS: DIVALPROEX SODIUM 500 MG TABLET E.C. PO SCH (10:04)
[2019-01-17] MEDS: amLODIPine BESYLATE 10 MG TABLET (FP) PO SCH (10:05)
[2019-01-17] MEDS: NICOTINE POLACRILEX 2 MG GUM BUC PRN (10:06)
[2019-01-17 14:14] VITALS: BP 133/84; PULSE 71; TEMP 98
--- NOTE | 2019-01-17 15:09 | DS ---
[facility] Detox Discharge Summary Admission Date: 01/14/19 Discharge Date: 01/17/19 - History Present History: Alcohol Dependence Additional Comments: 48 years old male admitted on 01/14/19 for alcohol withdrawal sx management treated with ativan detox regimen patient tolerated well alert oriented x 3 no acute distress ambulating steady gait speech clearly coherently patient prefers to leave the detox unit one day early to next level of recovery - Physical Exam Results Vital Signs: Vital Signs Temperature 98.0 F 01/17/19 14:13 Pulse Rate 71 01/17/19 14:13 Respiratory Rate 18 01/17/19 14:13 Blood Pressure 133/84 01/17/19 14:13 O2 Sat by Pulse Oximetry (%) Pertinent Admission Physical Exam Findings: alcohol with drawal sx Laboratory Last Values WBC 7.3 K/mm3 (4.0-10.0) 01/15/19 07:50 RBC 4.89 M/mm3 (4.00-5.60) 01/15/19 07:50 Hgb 11.6 GM/dL (11.7-16.9) L 01/15/19 07:50 Hct 36.2 % (35.4-49) 01/15/19 07:50 MCV 73.9 fl (80-96) L 01/15/19 07:50 MCH 23.6 pg (25.7-33.7) L 01/15/19 07:50 MCHC 32.0 g/dl (32.0-35.9) 01/15/19 07:50 RDW 17.9 % (11.9-15.9) H 01/15/19 07:50 Plt Count 247 K/MM3 (134-434) D 01/15/19 07:50 MPV 7.8 fl (7.5-11.1) 01/15/19 07:50 Sodium 142 mmol/L (136-145) 01/15/19 07:50 Potassium 3.7 mmol/L (3.5-5.1) 01/15/19 07:50 Chloride 106 mmol/L (98-107) 01/15/19 07:50 Carbon Dioxide 29 mmol/L (21-32) 01/15/19 07:50 Anion Gap 7 MMOL/L (8-16) L 01/15/19 07:50 BUN 15.1 mg/dL (7-18) 01/15/19 07:50 Creatinine 0.9 mg/dL (0.55-1.3) 01/15/19 07:50 Est GFR (CKD-EPI)AfAm 115.02 01/15/19 07:50 Est GFR (CKD-EPI)NonAf 99.24 01/15/19 07:50 Random Glucose 114 mg/dL (74-106) H 01/15/19 07:50 Calcium 8.3 mg/dL (8.5-10.1) L 01/15/19 07:50 Total Bilirubin 0.6 mg/dL (0.2-1) 01/15/19 07:50 AST 41 U/L (15-37) H 01/15/19 07:50 ALT 41 U/L (13-61) 01/15/19 07:50 Alkaline Phosphatase 67 U/L (45-117) 01/15/19 07:50 Total Protein 6.1 g/dl (6.4-8.2) L 01/15/19 07:50 Albumin 3.4 g/dl (3.4-5.0) 01/15/19 07:50 Valproic Acid 6.3 ug/mL (50-100) L 01/15/19 09:30 RPR Titer Reactive 1:1 (NONREACTIVE) H 01/15/19 07:50 T.pallidum Ab (MHA) Non reactive (NONREACTIVE) 01/15/19 07:50 HIV 1&2 Antibody Screen Negative 01/15/19 07:50 HIV P24 Antigen Negative 01/15/19 07:50 lab noted - Treatment Hospital Course: Detox Protocol Followed, Detoxed Safely, Responded well, Discharged Condition Good, Rehab Referral Accepted Patient has Accepted [facility] - Medication Discharge Medications: Ambulatory Orders Albuterol Sulfate Inhaler - [Ventolin HFA Inhaler -] 2 puff IH Q4H PRN #1 inhaler 09/07/17 Amlodipine Besylate [Norvasc -] 10 mg PO DAILY 30 Days #14 tablet 09/07/17 Ferrous Gluconate [Fergon -] 324 mg PO TID 12/16/17 Quetiapine Fumarate [Seroquel -] 200 mg PO HS 12/16/17 Atenolol [Tenormin -] 50 mg PO DAILY 01/14/19 Divalproex [Depakote -] 500 mg PO BID 01/14/19 - Diagnosis (1) Alcohol dependence with uncomplicated withdrawal Current Visit: Yes Status: Acute (2) Nicotine dependence Current Visit: Yes Status: Acute Qualifiers: Nicotine product type: cigarettes Substance use status: in withdrawal Qualified Code(s): F17.213 - Nicotine dependence, cigarettes, with withdrawal (3) Substance induced mood disorder Current Visit: Yes Status: Suspected (4) Asthma Current Visit: Yes Status: Chronic (5) GERD (gastroesophageal reflux disease) Current Visit: Yes Status: Chronic Qualifiers: Esophagitis presence: esophagitis presence not specified Qualified Code(s) : K21.9 - Gastro-esophageal reflux disease without esophagitis (6) HLD (hyperlipidemia) Current Visit: Yes Status: Chronic Qualifiers: Hyperlipidemia type: unspecified Qualified Code(s): E78.5 - Hyperlipidemia , unspecified (7) HTN (hypertension) Current Visit: Yes Status: Chronic Qualifiers: Hypertension type: essential hypertension Qualified Code(s): I10 - Essential (primary) hypertension (8) Syphilis Current Visit: Yes Status: Resolved - AMA Did Patient Leave Against Medical Advice: No
[2019-01-18] MEDS: LORazepam 0.5 MG TABLET PO SCH ×2 (00:07→00:08)
[2019-01-18] MEDS ORDERED: LORazepam 0.5 MG TABLET PO ONE (05:00)
== END 2019-01-17 01:22 | disposition home or self-care (01) | DRG 897 ==
LOC: YASAS 10:28 → Y3N 12:18
PROVIDERS: ADMIT Allergy & Immunology; ATTEND Allergy & Immunology
PROC: HZ2ZZZZ Detoxification Services for Substance Abuse Treatment (ICD-10-PCS; principal; 2019-01-14)
DX: F10.230 Alcohol dependence with withdrawal, uncomplicated (principal); F17.213 Nicotine dependence, cigarettes, with withdrawal; F25.9 Schizoaffective disorder, unspecified; F19.24 Other psychoactive substance dependence with psychoactive substance-induced mood disorder; I10 Essential (primary) hypertension; K21.9 Gastro-esophageal reflux disease without esophagitis; J45.909 Unspecified asthma, uncomplicated; Z86.19 Personal history of other infectious and parasitic diseases; Z91.018 Allergy to other foods
CPT/HCPCS: 36415; 80053; 80164; 85027; 86593; 86780; 87389; Q0162

== ENCOUNTER 2019-11-13 15:53 | Inpatient (IN) | payer MEDICARE, OTHER ==
--- NOTE | 2019-11-13 19:18 | BHS.RME ---
Substance Use & Tx History - Substance Use History Alcohol Substance amount: 1 liter of vodka Frequency of use: Daily Substance route: Oral Date of Last Use: 11/13/19 Cocaine-Crack Substance amount: 8 ballls Frequency of use: Daily Substance route: Smoking Date of Last Use: 11/13/19 - Last Treatment Date of last treatment: [facility] over a years ago Where was last treatment: [facility] ([facility]) Physical/Psych/Mental Status - Behavior General Behavior: Increased activity (restlessness, agitation) Other Behaviors: Posturing - Cooperativeness Cooperativeness: Cooperative - Thinking Thought Processes: Tight, Logical Thought content: Future oriented - Physical Health Problems Is patient presently having any pain?: No Does patient presently have any injuries (include location): No Does patient currently have a fever: No Is patient : No CIWA Nausea/Vomitin-Mild Nausea/No Vomiting Muscle Tremors: 3 Anxiety: 3 Agitation: 3 Paroxysmal Sweats: 1-Minimal Palms Moist Orientation: 0-Oriented Tacttile Disturbances: 2-Mild Itch/Numbness/Burn Auditory Disturbances: 0-None Visual Disturbances: 0-None Headache: 2-Mild CIWA-Ar Total Score: 15
[2019-11-13] MEDS ORDERED: IBUPROFEN 400 MG TABLET (FP) PO PRN (19:19)
[2019-11-13] MEDS ORDERED: MAG HYDROX/AL HYDROX/SIMETH 30 ML UNIT-DOSE CUP PO PRN (19:19)
[2019-11-13] MEDS ORDERED: ONDANSETRON *ODT* 4 MG TABLET SL PRN (19:19)
[2019-11-13] MEDS ORDERED: MAGNESIUM HYDROX 2400MG/30ML ORAL SUSPENSION 30 ML CUP PO PRN (19:19)
[2019-11-13] MEDS ORDERED: METHOCARBAMOL 500 MG TABLET PO PRN (19:19)
[2019-11-13] MEDS ORDERED: ACETAMINOPHEN 325 MG TABLET (FP) PO PRN ×2 (19:19)
[2019-11-13] MEDS ORDERED: BISMUTH SUBSALICYLATE 524 MG/30 ML UD PO PRN (19:19)
[2019-11-13] MEDS ORDERED: MAGNESIUM CITRATE 300 ML BOTTLE PO PRN (19:19)
[2019-11-13] MEDS ORDERED: chlordiazePOXIDE HCL 25 MG CAPSULE PO PRN (19:19)
[2019-11-13] MEDS ORDERED: MENTHOL/PHENOL 1 EACH UD MM PRN (19:19)
[2019-11-13] MEDS ORDERED: ALBUTEROL SO4 HFA INHALER IH PRN (19:23)
--- NOTE | 2019-11-13 19:33 | HP ---
CIWA Score Nausea/Vomitin-Mild Nausea/No Vomiting Muscle Tremors: 3 Anxiety: 3 Agitation: 3 Paroxysmal Sweats: 1-Minimal Palms Moist Orientation: 0-Oriented Tacttile Disturbances: 2-Mild Itch/Numbness/Burn Auditory Disturbances: 0-None Visual Disturbances: 0-None Headache: 2-Mild CIWA-Ar Total Score: 15 - Admission Criteria OASAS Guidelines: Admission for Medically Managed Detox: Requires at least one of the followin. CIWA greater than 12 2. Seizures within the past 24 hours 3. Delirium tremens within the past 24 hours 4. Hallucinations within the past 24 hours 5. Acute intervention needed for co occurring medical disorder 6. Acute intervention needed for co occurring psychiatric disorder 7. Severe withdrawal that cannot be handled at a lower level of care (continued vomiting, continued diarrhea, abnormal vital signs) requiring intravenous medication and/or fluids 8. Patient presents the following: CIWA greater than 12, Acute intervention needed for co-occurring med or psych disorder Admission Criteria Met: Admission criteria met Admitting History and Physical - Admission Chief Complaint: I want detox History of Present Illness: Patient is a 49 y/o male presents to [facility] for alcohol detox. Patient earlier this morning went to [facility] for detox but became angry because another patient skipped him. Started drinking alcohol since age 13, currently drinking a liter of vodka daily. Last drink was gthis morning. Denies seizures or black out but admits to eyeopener. History Source: Patient Limitations to Obtaining History: No Limitations - Past Medical History Cardiovascular: Yes: HTN Pulmonary: Yes: Asthma Heme/Onc: Yes: Anemia Psych: Yes: Addictions, Bipolar, Schizophrenia (left elbow surgery in 1985) - Smoking History Smoking history: Current every day smoker Have you smoked in the past 12 months: Yes Aproximately how many cigarettes per day: 10 - Alcohol/Substance Use Hx Alcohol Use: Yes Number of Drinks Daily: 1 History of Substance Use: reports: Cocaine - Social History Usual Living Arrangement: Yes: Alone Do you think of yourself as: Straight/Heterosexual ADL: Independent Occupation: unemployed History of Recent Travel: No Admission ROS S - HPI Chief Complaint: I want detox and rehab Allergies/Adverse Reactions: Allergies Allergy/AdvReac Type Severity Reaction Status Date / Time Sweet Potato Allergy Severe Hives Verified 11/13/19 19:39 No Known Drug Allergies Allergy Verified 11/13/19 19:39 squash Allergy Severe Hives Uncoded 11/13/19 19:39 Exam Limitations: No Limitations - Ebola screening Have you traveled outside of the country in the last 21 days: No Have you had contact with anyone from an Ebola affected area: No Have you been sick,other than usual withdrawal symptoms: No Do you have a fever: No - Review of Systems Constitutional: Night Sweats EENT: reports: No Symptoms Reported Respiratory: reports: No Symptoms reported Cardiac: reports: No Symptoms Reported GI: reports: No Symptoms Reported : reports: No Symptoms Reported Musculoskeletal: reports: No Symptoms Reported Integumentary: reports: No Symptoms Reported Neuro: reports: Numbness, Tremors Endocrine: reports: No Symptoms Reported Hematology: reports: Anemia Psychiatric: reports: Judgement Intact, Agitated, Anxious Other Systems: Reviewed and Negative Patient History - Patient Medical History Hx Anemia: No Hx Asthma: Yes (Pt is on MDI) Hx Chronic Obstructive Pulmonary Disease (COPD): No Hx Cancer: No Hx Cardiac Disorders: No Hx Congestive Heart Failure: No Hx Hypertension: Yes (on med) Hx Hypercholesterolemia: Yes (no med; DIET CONTROLLED) Hx Pacemaker: No HX Cerebrovascular Accident: No Hx Seizures: No Hx Dementia: No Hx Diabetes: No Hx Gastrointestinal Disorders: No Hx Liver Disease: No Hx Genitourinary Disorders: No Hx Sexually Transmitted Disorders: No Hx Renal Disease (ESRD): No Hx Thyroid Disease: No Hx Human Immunodeficiency Virus (HIV): No (last 03/27 negative hx at [facility]) Hx Hepatitis C: No Hx Depression: No Hx Suicide Attempt: No Hx Bipolar Disorder: Yes (ON MEDS ) Hx Schizophrenia: No - Patient Surgical History Past Surgical History: Yes Hx Neurologic Surgery: No Hx Cataract Extraction: No Hx Cardiac Surgery: No Hx Lung Surgery: No Hx Breast Surgery: No Hx Breast Biopsy: No Hx Abdominal Surgery: No Hx Appendectomy: No Hx Cholecystectomy: No Hx Genitourinary Surgery: No Hx Section: No Hx Orthopedic Surgery: Yes (left elbow and right wrist) Other Surgical History: sx to left elbow IN 1985,FX OF RIGHT WRIST WITH DEFORMITY 2008 Anesthesia Reaction: No - PPD History Date: 06/03/17 Results: 0 mm - Smoking Cessation Smoking history: Current every day smoker Have you smoked in the past 12 months: Yes Aproximately how many cigarettes per day: 10 Cigars Per Day: 0 Hx Chewing Tobacco Use: No Initiated information on smoking cessation: Yes 'Breaking Loose' booklet given: 11/13/19 - Substance & Tx. History Hx Alcohol Use: Yes Substance Use Type: Alcohol, Cocaine Hx Substance Use Treatment: Yes (detox over a year ago) - Substances abused Crack Substance route: Smoking Frequency: Daily Amount used: 8 balls Age of first use: 16 Date of last use: 11/13/19 Alcohol Substance route: Oral Frequency: Daily Amount used: 1 liter Age of first use: 13 Date of last use: 11/13/19 Admission Physical Exam [facility] - Physical General Appearance: Yes: Disheveled, Tremorous, Irritable, Anxious Respiratory: Yes: Within Normal Limits, Chest Non-Tender, Lungs Clear, Normal Br eath Sounds, No Respiratory Distress Neck: Yes: Within Normal Limits, No masses,lesions,Nodules Breast: Yes: Breast Exam Deferred Cardiology: Yes: Within Normal Limits, Regular Rhythm, Regular Rate, S1, S2 Abdominal: Yes: Within Normal Limits, Normal Bowel Sounds, Flat, Soft Genitourinary: Yes: Within Normal Limits Back: Yes: Within Normal Limits, Normal Inspection Musculoskeletal: Yes: Within Normal Limits, full range of Motion, Gait Steady Extremities: Yes: Within Normal Limits, Normal Capillary Refill Neurological: Yes: Within Normal Limits, Fully Oriented, Normal Response Integumentary: Yes: Within Normal Limits Lymphatic: Yes: Within Normal Limits - Diagnostic (1) Alcohol dependence with uncomplicated withdrawal Current Visit: No Status: Acute (2) Nicotine dependence Current Visit: No Status: Chronic Qualifiers: Nicotine product type: cigarettes Substance use status: in withdrawal Qualified Code(s): F17.213 - Nicotine dependence, cigarettes, with withdrawal (3) Asthma Current Visit: No Status: Chronic (4) Essential hypertension Current Visit: No Status: Chronic Cleared for Admission [facility] - Detox or Rehab [facility] Level of Care: Medically Managed Detox Regimen/Protocol: Librium Claeared for Rehab Admission: No Breathalyzer - Breathalyzer Breathalyzer: 0.057 Urine Drug Screen - Test Device Lot number: [id number] Expiration date: 09/07/20 - Control Is test valid?: Yes - Results Drug screen NEGATIVE: No Urine drug screen results: [place]-Cocaine Inpatient Rehab Admission - Rehab Decision to Admit Inpatient rehab admission?: No
[2019-11-13 19:51] VITALS: BMI 29.1
--- OUTSIDE RECORDS SUMMARY | 2019-11-13 20:06 | XMS ---
:1970 Author Organization [facility] Support Name Relationship Address Phone UE Unavailable Unavailable Unavailable SAVANNAH CASTANEDA MOTHER [address] [phone] [place] [address] SAVANNAH CASTANEDA Mother [address] [place] [address] Re-disclosure Warning The records that you are about to access may contain information from federally- assisted alcohol or drug abuse programs. If such information is present, then the following federally mandated warning applies: This information has been disclosed to you from records protected by federal confidentiality rules (42 CFR part 2). The federal rules prohibit you from making any further disclosure of this information unless further disclosure is expressly permitted by the written consent of the person to whom it pertains or as otherwise permitted by 42 CFR part 2. A general authorization for the release of medical or other information is NOT sufficient for this purpose. The Federal rules restrict any use of the information to criminally investigate or prosecute any alcohol or drug abuse patient.The records that you are about to access may contain highly sensitive health information, the redisclosure of which is protected by Article 27-F of the [facility] Public Health law. If you continue you may haveaccess to information: Regarding HIV / AIDS; Provided by facilities licensed or operated by the [facility] Office of Mental Health; or Provided by the [facility] Office for People With Developmental Disabilities. If such information is present, then the following [facility] mandated warning applies: This information has been disclosed to you from confidential records which are protected by state law. State law prohibits you from making any further disclosure of this information without the specific written consent of the person to whom it pertains, or as otherwise permitted by law. Any unauthorized further disclosure in violation of state law may result in a fine or senior care sentence or both. A general authorization for the release of medical or other information is NOT sufficient authorization for further disclosure. Insurance Providers Payer name Policy type Policy ID Covered Covered constitution party's Policy P dao / Coverage constitution party ID relationship to Correa Inf ormation type correa ANTHONY MEDICARE [id number] SP [id number] LANG [id number] SP [id number] MEDICARE ADV PLAN MEDICAID [id number] SP [id number] [facility] [id number] SP [id number] 300 MEDICARE ADV PLAN
[2019-11-13] MEDS: hydrOXYzine PAMOATE 25 MG CAPSULE (FP) PO SCH (22:31)
[2019-11-13] MEDS: MELATONIN 5 MG TABLETS PO SCH (22:31)
[2019-11-13] MEDS: THIAMINE HCL 100 MG TABLET (FP) PO SCH (22:31)
[2019-11-13] MEDS: NICOTINE POLACRILEX 2 MG GUM BUC PRN (22:31)
[2019-11-13] MEDS: chlordiazePOXIDE HCL 25 MG CAPSULE PO SCH (22:32)
[2019-11-13] MEDS: FERROUS GLUCONATE 324 MG TAB (FP) PO SCH (22:34)
[2019-11-14] MEDS: chlordiazePOXIDE HCL 25 MG CAPSULE PO SCH ×4 (05:17→22:02)
[2019-11-14] MEDS: FERROUS GLUCONATE 324 MG TAB (FP) PO SCH ×3 (05:18→22:02)
[2019-11-14] MEDS: NICOTINE POLACRILEX 2 MG GUM BUC PRN ×5 (05:19→19:50)
[2019-11-14] MEDS: hydrOXYzine PAMOATE 25 MG CAPSULE (FP) PO SCH ×5 (07:39→22:02)
--- NOTE | 2019-11-14 09:45 | PN ---
[facility] CIWA - CIWA Score Nausea/Vomitin-Mild Nausea/No Vomiting Muscle Tremors: 2 Anxiety: 2 Agitation: 2 Paroxysmal Sweats: No Perspiration Orientation: 0-Oriented Tacttile Disturbances: 1-Very Mild Itch/Numbness Auditory Disturbances: 0-None Visual Disturbances: 0-None Headache: 2-Mild CIWA-Ar Total Score: 10 S Progress Note (SOAP) Subjective: alert,irritable,anxious,interrupted sleep,tremor,pain in the body and back,sabrina sea Objective: 11/14/19 11:36 Vital Signs Temperature 97.3 F L 11/14/19 08:39 Pulse Rate 80 11/14/19 08:39 Respiratory Rate 18 11/14/19 08:39 Blood Pressure 144/91 11/14/19 08:39 O2 Sat by Pulse Oximetry (%) 98 11/14/19 06:24 Laboratory Last Values WBC 8.0 K/mm3 (4.0-10.0) 11/14/19 07:00 RBC 4.76 M/mm3 (4.00-5.60) 11/14/19 07:00 Hgb 11.2 GM/dL (11.7-16.9) L 11/14/19 07:00 Hct 35.1 % (35.4-49) L 11/14/19 07:00 MCV 73.7 fl (80-96) L 11/14/19 07:00 MCH 23.5 pg (25.7-33.7) L 11/14/19 07:00 MCHC 31.9 g/dl (32.0-35.9) L 11/14/19 07:00 RDW 17.6 % (11.9-15.9) H 11/14/19 07:00 Plt Count 276 K/MM3 (134-434) 11/14/19 07:00 MPV 7.3 fl (7.5-11.1) L 11/14/19 07:00 Sodium 143 mmol/L (136-145) 11/14/19 07:00 Potassium 3.7 mmol/L (3.5-5.1) 11/14/19 07:00 Chloride 109 mmol/L (98-107) H 11/14/19 07:00 Carbon Dioxide 25 mmol/L (21-32) 11/14/19 07:00 Anion Gap 9 MMOL/L (8-16) 11/14/19 07:00 BUN 12.8 mg/dL (7-18) 11/14/19 07:00 Creatinine 1.0 mg/dL (0.55-1.3) 11/14/19 07:00 Est GFR (CKD-EPI)AfAm 100.55 11/14/19 07:00 Est GFR (CKD-EPI)NonAf 86.76 11/14/19 07:00 Random Glucose 130 mg/dL (74-106) H 11/14/19 07:00 Calcium 8.5 mg/dL (8.5-10.1) 11/14/19 07:00 Total Bilirubin 0.6 mg/dL (0.2-1) 11/14/19 07:00 AST 37 U/L (15-37) 11/14/19 07:00 ALT 33 U/L (13-61) 11/14/19 07:00 Alkaline Phosphatase 74 U/L (45-117) 11/14/19 07:00 Total Protein 6.0 g/dl (6.4-8.2) L 11/14/19 07:00 Albumin 3.3 g/dl (3.4-5.0) L 11/14/19 07:00 Assessment: 11/14/19 11:37 withdrawal symptom Plan: continue detox librium regimen,initial glucose 130,will do fasting glucose in am
--- NOTE | 2019-11-14 09:55 | EKG ---
Test Reason : Blood Pressure : / mmHG Vent. Rate : 069 BPM Atrial Rate : 069 BPM P-R Int : 118 ms QRS Dur : 082 ms QT Int : 424 ms P-R-T Axes : 042 053 054 degrees QTc Int : 454 ms NORMAL SINUS RHYTHM SEPTAL INFARCT , AGE UNDETERMINED ABNORMAL ECG WHEN COMPARED WITH ECG OF 16-DEC-2017 13:39, PREMATURE ATRIAL COMPLEXES ARE NO LONGER PRESENT NONSPECIFIC T WAVE ABNORMALITY NO LONGER EVIDENT IN LATERAL LEADS Confirmed by Barron Kuo MD ([id number]) on 11/14/2019 9:54:27 AM Referred By: Confirmed By:Barron Kuo MD
[2019-11-14] MEDS: PRENATAL VITAMINS W/ FOLIC ACID TABLET (FP) PO SCH (10:06)
[2019-11-14] MEDS: NICOTINE 7 MG/24 HOURS TOPICAL PATCH TD SCH (10:09)
[2019-11-14 10:24] LABS: HEMATOCRIT 35.1 % (35.4-49); HEMOGLOBIN 11.2 GM/dL (11.7-16.9); MCH 23.5 pg (25.7-33.7); MCHC 31.9 g/dl (32.0-35.9); MEAN CELL VOLUME 73.7 fl (80-96); MEAN PLT VOLUME 7.3 fl (7.5-11.1); PLATELET COUNT 276 K/MM3 (134-434); RBC 4.76 M/mm3 (4.00-5.60); RDW 17.6 % (11.9-15.9)
[2019-11-14 10:29] LABS: ALBUMIN 3.3 g/dl (3.4-5.0); BILIRUBIN,TOTAL 0.6 mg/dL (0.2-1); BLOOD UREA NITROGEN 12.8 mg/dL (7-18); CALCIUM 8.5 mg/dL (8.5-10.1); POTASSIUM 3.7 mmol/L (3.5-5.1)
[2019-11-14] MEDS ORDERED: FLU VACCINE (FLULAVAL) PF 60 MCG/0.5 ML SYRINGE 2020-2021 IM ONE (12:00)
--- NOTE | 2019-11-14 15:13 | CONSULT ---
[facility] Psychiatric Consult - Data Date of interview: 11/14/19 Admission source: [facility] Identifying data: Readmission to [address] [place] [address] for this 49 y/o AAmale self-referred for detoxification treatment. DUARTE issues : alcohol, cocaine, nicotine. Patient is , a father of two, domiciled (self-report), unemployed and supported on SSI/SSD benefits. Substance Abuse History: Discussed with the patient. DUARTE profile as follows : Smoking history: Current every day smoker. Have you smoked in the past 12 months: Yes. Approximately how many cigarettes per day: 10. Cigars Per Day: 0. Hx Chewing Tobacco Use: No. Initiated information on smoking cessation: Yes. 'Breaking Loose' booklet given: 11/13/19. - Substance & Tx. History. Hx Alcohol Use: Yes. Substance Use Type: Alcohol, Cocaine. Hx Substance Use Treatment: Yes (detox over a year ago). - Substances abused. Crack. Substance route: Smoking. Frequency: Daily. Amount used: 8 balls. Age of first use: 16. Date of last use: 11/13/19. Alcohol. Substance route: Oral. Frequency: Daily. Amount used: 1 liter. Age of first use: 13. Date of last use: 11/13/19. History of multiple DUARTE treatment failures. Medical History: Medical profile is remarkable for antecedent of treatment for syphilis, GERD, bronchial asthma, hypertension, hypercholesterolemia and a distant history of orthosurgery for fracture of left elbow + right wrist. No known drug allergies. Psychiatric History: Long-standing history of mental illness (age 13). Patient endorses history of multiple psychiatric hospitalizations ([facility] + [facility] + [facility] in [place], [place] + [facility] + [facility] in [place], [place]). Diagnosed with Bipolar disorder. Past treatments with Zyprexa, trazodone, seroquel and depakote. Mr Sun is known for chronic non-adherence to OPD care. He is currrently seeing a psychiatrist, Dr Demian Robles, at [facility] in [place], [place] (patient's own report). He is reportedly prescribed seroquel 200 mg/hs (medication reconciliation list) but the patient insists of resuming seroquel at the dose of 100 mg/hs. Patient denies history of suicide attempts. Physical/Sexual Abuse/Trauma History: Patient denies. Additional Comment: Urine drug screen results: [facility]-Cocaine. Noted. Mental Status Exam - Mental Status Exam Alert and Oriented to: Time, Place, Person Cognitive Function: Good Patient Appearance: Unkempt, Disheveled Mood: Hopeful, Euthymic Affect: Normal Range Patient Behavior: Appropriate, Cooperative Speech Pattern: Clear, Appropriate Voice Loudness: Normal Thought Process: Intact, Goal Oriented Thought Disorder: Not Present Hallucinations: Denies Suicidal Ideation: Denies Homicidal Ideation: Denies Insight/Judgement: Poor Sleep: Poorly, Difficulty falling asleep Appetite: Good Gait/Station: Normal Psychiatric Findings - Problem List ([place] 1, 2,3) (1) Alcohol dependence with uncomplicated withdrawal Current Visit: Yes Status: Acute (2) Cocaine dependence, uncomplicated Current Visit: Yes Status: Chronic (3) Nicotine dependence Current Visit: Yes Status: Chronic Qualifiers: Nicotine product type: cigarettes Substance use status: in withdrawal Qualified Code(s): F17.213 - Nicotine dependence, cigarettes, with withdrawal (4) Schizoaffective disorder Current Visit: Yes Status: Chronic Qualifiers: Schizoaffective disorder type: bipolar Qualified Code(s): F25.0 - Schizoaffective disorder, bipolar type Comment: As per records. Non-compliance with medications. (5) Insomnia Current Visit: Yes Status: Chronic - Initial Treatment Plan Initial Treatment Plan: Psychoeducation. Sleep hygiene. Detoxification. Support. Resumed : seroquel 100 mg po hs (patient's request). Side effects/benefits discussed with the patient. Consent (verbal) granted. Observation.
[2019-11-14] MEDS: QUEtiapine FUMARATE 100 MG TABLET (FP) PO SCH (22:02)
[2019-11-14] MEDS: THIAMINE HCL 100 MG TABLET (FP) PO SCH (22:02)
[2019-11-14] MEDS: MELATONIN 5 MG TABLETS PO SCH (22:04)
[2019-11-15] MEDS: NICOTINE POLACRILEX 2 MG GUM BUC PRN ×5 (03:12→21:23)
[2019-11-15] MEDS: FERROUS GLUCONATE 324 MG TAB (FP) PO SCH ×3 (05:34→22:03)
[2019-11-15] MEDS: hydrOXYzine PAMOATE 25 MG CAPSULE (FP) PO SCH ×5 (05:34→22:03)
[2019-11-15] MEDS: chlordiazePOXIDE HCL 25 MG CAPSULE PO SCH ×4 (05:34→22:03)
[2019-11-15] MEDS: NICOTINE 7 MG/24 HOURS TOPICAL PATCH TD SCH (10:18)
[2019-11-15] MEDS: amLODIPine BESYLATE 10 MG TABLET (FP) PO SCH (10:19)
[2019-11-15] MEDS: ATENOLOL 50 MG TABLET (FP) PO SCH (10:20)
[2019-11-15] MEDS: PRENATAL VITAMINS W/ FOLIC ACID TABLET (FP) PO SCH (10:20)
--- NOTE | 2019-11-15 10:34 | PN ---
[facility] CIWA - CIWA Score Nausea/Vomitin-Mild Nausea/No Vomiting Muscle Tremors: 2 Anxiety: 2 Agitation: 1-Slight > Activity Paroxysmal Sweats: No Perspiration Orientation: 0-Oriented Tacttile Disturbances: 0-None Auditory Disturbances: 0-None Visual Disturbances: 0-None Headache: 1-Very Mild CIWA-Ar Total Score: 7 S Progress Note (SOAP) Subjective: alert,irritable,anxious,interrupted sleep,aching pain,ambulation on the unit Objective: 11/15/19 15:46 Vital Signs Temperature 96.9 F L 11/15/19 12:45 Pulse Rate 65 11/15/19 12:45 Respiratory Rate 18 11/15/19 12:45 Blood Pressure 136/85 11/15/19 12:45 O2 Sat by Pulse Oximetry (%) 99 11/15/19 12:45 11/15/19 15:52 Laboratory Last Values WBC 8.0 K/mm3 (4.0-10.0) 11/14/19 07:00 RBC 4.76 M/mm3 (4.00-5.60) 11/14/19 07:00 Hgb 11.2 GM/dL (11.7-16.9) L 11/14/19 07:00 Hct 35.1 % (35.4-49) L 11/14/19 07:00 MCV 73.7 fl (80-96) L 11/14/19 07:00 MCH 23.5 pg (25.7-33.7) L 11/14/19 07:00 MCHC 31.9 g/dl (32.0-35.9) L 11/14/19 07:00 RDW 17.6 % (11.9-15.9) H 11/14/19 07:00 Plt Count 276 K/MM3 (134-434) 11/14/19 07:00 MPV 7.3 fl (7.5-11.1) L 11/14/19 07:00 Sodium 143 mmol/L (136-145) 11/14/19 07:00 Potassium 3.7 mmol/L (3.5-5.1) 11/14/19 07:00 Chloride 109 mmol/L (98-107) H 11/14/19 07:00 Carbon Dioxide 25 mmol/L (21-32) 11/14/19 07:00 Anion Gap 9 MMOL/L (8-16) 11/14/19 07:00 BUN 12.8 mg/dL (7-18) 11/14/19 07:00 Creatinine 1.0 mg/dL (0.55-1.3) 11/14/19 07:00 Est GFR (CKD-EPI)AfAm 100.55 11/14/19 07:00 Est GFR (CKD-EPI)NonAf 86.76 11/14/19 07:00 Random Glucose 130 mg/dL (74-106) H 11/14/19 07:00 Fasting Glucose 130 mg/dL (74-106) H 11/15/19 07:00 Calcium 8.5 mg/dL (8.5-10.1) 11/14/19 07:00 Total Bilirubin 0.6 mg/dL (0.2-1) 11/14/19 07:00 AST 37 U/L (15-37) 11/14/19 07:00 ALT 33 U/L (13-61) 11/14/19 07:00 Alkaline Phosphatase 74 U/L (45-117) 11/14/19 07:00 Total Protein 6.0 g/dl (6.4-8.2) L 11/14/19 07:00 Albumin 3.3 g/dl (3.4-5.0) L 11/14/19 07:00 Syphilis Serology Non-reactive (NONREACTIVE) 11/13/19 07:00 COVID-19 (ANI) Not detected (Not Detected) 11/13/19 19:15 Assessment: 11/15/19 15:52 withdrawal sign and symptom Plan: continue detox librium regimen,life style diet modification,ariella,ncs,hb a1c,d ietician consultation
[2019-11-15] MEDS ORDERED: FLU VACCINE (FLULAVAL) PF 60 MCG/0.5 ML SYRINGE 2020-2021 IM ONE (12:00)
[2019-11-15] MEDS: THIAMINE HCL 100 MG TABLET (FP) PO SCH (22:03)
[2019-11-15] MEDS: MELATONIN 5 MG TABLETS PO SCH (22:03)
[2019-11-15] MEDS: QUEtiapine FUMARATE 100 MG TABLET (FP) PO SCH (22:03)
[2019-11-16] MEDS ORDERED: chlordiazePOXIDE HCL 10 MG CAPSULE PO PRN
[2019-11-16] MEDS: hydrOXYzine PAMOATE 25 MG CAPSULE (FP) PO SCH ×5 (06:56→22:06)
[2019-11-16] MEDS: chlordiazePOXIDE HCL 10 MG CAPSULE PO SCH ×4 (06:56→22:06)
[2019-11-16] MEDS: FERROUS GLUCONATE 324 MG TAB (FP) PO SCH ×3 (06:56→22:07)
[2019-11-16] MEDS: NICOTINE POLACRILEX 2 MG GUM BUC PRN ×6 (06:57→22:47)
[2019-11-16] MEDS: PRENATAL VITAMINS W/ FOLIC ACID TABLET (FP) PO SCH (10:30)
[2019-11-16] MEDS: amLODIPine BESYLATE 10 MG TABLET (FP) PO SCH (10:30)
[2019-11-16] MEDS: ATENOLOL 50 MG TABLET (FP) PO SCH (10:31)
[2019-11-16] MEDS: NICOTINE 7 MG/24 HOURS TOPICAL PATCH TD SCH (10:32)
--- NOTE | 2019-11-16 13:32 | PN ---
[facility] CIWA - CIWA Score Nausea/Vomitin-Mild Nausea/No Vomiting Muscle Tremors: 2 Anxiety: 2 Agitation: 2 Paroxysmal Sweats: No Perspiration Orientation: 0-Oriented Tacttile Disturbances: 1-Very Mild Itch/Numbness Auditory Disturbances: 0-None Visual Disturbances: 0-None Headache: 1-Very Mild CIWA-Ar Total Score: 9 S Progress Note (SOAP) Subjective: alert,irritable,anxious,interrupted sleep,aching pain,ambulation on the unit Objective: 11/16/19 16:38 Laboratory Last Values WBC 8.0 K/mm3 (4.0-10.0) 11/14/19 07:00 RBC 4.76 M/mm3 (4.00-5.60) 11/14/19 07:00 Hgb 11.2 GM/dL (11.7-16.9) L 11/14/19 07:00 Hct 35.1 % (35.4-49) L 11/14/19 07:00 MCV 73.7 fl (80-96) L 11/14/19 07:00 MCH 23.5 pg (25.7-33.7) L 11/14/19 07:00 MCHC 31.9 g/dl (32.0-35.9) L 11/14/19 07:00 RDW 17.6 % (11.9-15.9) H 11/14/19 07:00 Plt Count 276 K/MM3 (134-434) 11/14/19 07:00 MPV 7.3 fl (7.5-11.1) L 11/14/19 07:00 Sodium 143 mmol/L (136-145) 11/14/19 07:00 Potassium 3.7 mmol/L (3.5-5.1) 11/14/19 07:00 Chloride 109 mmol/L (98-107) H 11/14/19 07:00 Carbon Dioxide 25 mmol/L (21-32) 11/14/19 07:00 Anion Gap 9 MMOL/L (8-16) 11/14/19 07:00 BUN 12.8 mg/dL (7-18) 11/14/19 07:00 Creatinine 1.0 mg/dL (0.55-1.3) 11/14/19 07:00 Est GFR (CKD-EPI)AfAm 100.55 11/14/19 07:00 Est GFR (CKD-EPI)NonAf 86.76 11/14/19 07:00 Random Glucose 130 mg/dL (74-106) H 11/14/19 07:00 Fasting Glucose 130 mg/dL (74-106) H 11/15/19 07:00 Hemoglobin A1c % 5.2 % (4.2-6.3) 11/16/19 07:00 Calcium 8.5 mg/dL (8.5-10.1) 11/14/19 07:00 Total Bilirubin 0.6 mg/dL (0.2-1) 11/14/19 07:00 AST 37 U/L (15-37) 11/14/19 07:00 ALT 33 U/L (13-61) 11/14/19 07:00 Alkaline Phosphatase 74 U/L (45-117) 11/14/19 07:00 Total Protein 6.0 g/dl (6.4-8.2) L 11/14/19 07:00 Albumin 3.3 g/dl (3.4-5.0) L 11/14/19 07:00 Syphilis Serology Non-reactive (NONREACTIVE) 11/13/19 07:00 COVID-19 (ANI) Not detected (Not Detected) 11/13/19 19:15 Assessment: 11/16/19 16:38 withdrawal symptom Plan: continue detox librium regimen regimen,life style chance on diet modification,no added salt,no concentrated sweet,bgm monitoring
[2019-11-16] MEDS: QUEtiapine FUMARATE 100 MG TABLET (FP) PO SCH (22:06)
[2019-11-16] MEDS: MELATONIN 5 MG TABLETS PO SCH (22:07)
[2019-11-16] MEDS: THIAMINE HCL 100 MG TABLET (FP) PO SCH (22:07)
[2019-11-17] MEDS: NICOTINE POLACRILEX 2 MG GUM BUC PRN ×6 (05:17→22:11)
[2019-11-17] MEDS: hydrOXYzine PAMOATE 25 MG CAPSULE (FP) PO SCH ×5 (05:18→22:06)
[2019-11-17] MEDS: FERROUS GLUCONATE 324 MG TAB (FP) PO SCH ×3 (05:18→22:06)
[2019-11-17] MEDS: chlordiazePOXIDE HCL 10 MG CAPSULE PO SCH ×2 (05:18→17:35)
--- NOTE | 2019-11-17 08:58 | PN ---
[facility] CIWA - CIWA Score Nausea/Vomitin-Mild Nausea/No Vomiting Muscle Tremors: 2 Anxiety: 2 Agitation: 1-Slight > Activity Paroxysmal Sweats: No Perspiration Orientation: 0-Oriented Tacttile Disturbances: 0-None Auditory Disturbances: 0-None Visual Disturbances: 0-None Headache: 1-Very Mild CIWA-Ar Total Score: 7 S Progress Note (SOAP) Subjective: alert,irritable,intrrupted sleep,aching pain Objective: 11/17/19 10:15 Vital Signs Temperature 98.0 F 11/17/19 08:48 Pulse Rate 75 11/17/19 08:48 Respiratory Rate 18 11/17/19 08:48 Blood Pressure 136/82 11/17/19 08:48 O2 Sat by Pulse Oximetry (%) 98 11/17/19 06:42 11/17/19 10:15 bgm 149 Assessment: 11/17/19 10:16 withdrawal symptom Plan: continue detox librium regimen,,life style changed on diet,no added salt,no concentrated sweet,follow up with medical provider after discharge,discharge in am
[2019-11-17] MEDS: amLODIPine BESYLATE 10 MG TABLET (FP) PO SCH (10:06)
[2019-11-17] MEDS: PRENATAL VITAMINS W/ FOLIC ACID TABLET (FP) PO SCH (10:06)
[2019-11-17] MEDS: NICOTINE 7 MG/24 HOURS TOPICAL PATCH TD SCH (10:06)
[2019-11-17] MEDS: ATENOLOL 50 MG TABLET (FP) PO SCH (10:06)
[2019-11-17] MEDS: THIAMINE HCL 100 MG TABLET (FP) PO SCH (22:06)
[2019-11-17] MEDS: MELATONIN 5 MG TABLETS PO SCH (22:06)
[2019-11-17] MEDS: QUEtiapine FUMARATE 100 MG TABLET (FP) PO SCH (22:06)
[2019-11-18] MEDS ORDERED: chlordiazePOXIDE HCL 10 MG CAPSULE PO ONE (05:00)
[2019-11-18] MEDS: hydrOXYzine PAMOATE 25 MG CAPSULE (FP) PO SCH ×3 (05:28→13:41)
[2019-11-18] MEDS: FERROUS GLUCONATE 324 MG TAB (FP) PO SCH ×2 (05:29→13:41)
[2019-11-18 09:48] VITALS: BP 131/79; PULSE 70; TEMP 96.8
[2019-11-18] MEDS: amLODIPine BESYLATE 10 MG TABLET (FP) PO SCH (10:25)
[2019-11-18] MEDS: ATENOLOL 50 MG TABLET (FP) PO SCH (10:26)
[2019-11-18] MEDS: NICOTINE 7 MG/24 HOURS TOPICAL PATCH TD SCH (10:26)
[2019-11-18] MEDS: PRENATAL VITAMINS W/ FOLIC ACID TABLET (FP) PO SCH (10:26)
--- NOTE | 2019-11-18 11:22 | DS ---
[facility] Detox Discharge Summary Admission Date: 11/13/19 Discharge Date: 11/18/19 - History Present History: Alcohol Dependence, Cocaine Dependence Additional Comments: Pt is medically cleared and discharged today. Pt completed the detox protocol. pt is encouraged to follow-up with an outpatient CD program and also to follow- up with his pmd which he verbalized understanding. Pt is AOX3, in no acute respiratory distress, Full ROM, and ambulatory. Pertinent Past History: h/o athma, HTN, cocaine, and alcohol use disorder. - Physical Exam Results Vital Signs: Vital Signs Temperature 96.8 F L 11/18/19 08:40 Pulse Rate 70 11/18/19 08:40 Respiratory Rate 18 11/18/19 08:40 Blood Pressure 131/79 11/18/19 08:40 O2 Sat by Pulse Oximetry (%) 97 11/18/19 05:20 Vital Signs 11/18/19 11/18/19 05:20 08:40 Temperature 97.7 F 96.8 F L Pulse Rate 69 70 Respiratory 20 18 Rate Blood Pressure 104/61 131/79 O2 Sat by Pulse 97 Oximetry (%) Laboratory Last Values WBC 8.0 K/mm3 (4.0-10.0) 11/14/19 07:00 RBC 4.76 M/mm3 (4.00-5.60) 11/14/19 07:00 Hgb 11.2 GM/dL (11.7-16.9) L 11/14/19 07:00 Hct 35.1 % (35.4-49) L 11/14/19 07:00 MCV 73.7 fl (80-96) L 11/14/19 07:00 MCH 23.5 pg (25.7-33.7) L 11/14/19 07:00 MCHC 31.9 g/dl (32.0-35.9) L 11/14/19 07:00 RDW 17.6 % (11.9-15.9) H 11/14/19 07:00 Plt Count 276 K/MM3 (134-434) 11/14/19 07:00 MPV 7.3 fl (7.5-11.1) L 11/14/19 07:00 Sodium 143 mmol/L (136-145) 11/14/19 07:00 Potassium 3.7 mmol/L (3.5-5.1) 11/14/19 07:00 Chloride 109 mmol/L (98-107) H 11/14/19 07:00 Carbon Dioxide 25 mmol/L (21-32) 11/14/19 07:00 Anion Gap 9 MMOL/L (8-16) 11/14/19 07:00 BUN 12.8 mg/dL (7-18) 11/14/19 07:00 Creatinine 1.0 mg/dL (0.55-1.3) 11/14/19 07:00 Est GFR (CKD-EPI)AfAm 100.55 11/14/19 07:00 Est GFR (CKD-EPI)NonAf 86.76 11/14/19 07:00 POC Glucometer 119 UNITS (80-120) 11/18/19 05:30 Random Glucose 130 mg/dL (74-106) H 11/14/19 07:00 Fasting Glucose 130 mg/dL (74-106) H 11/15/19 07:00 Hemoglobin A1c % 5.2 % (4.2-6.3) 11/16/19 07:00 Calcium 8.5 mg/dL (8.5-10.1) 11/14/19 07:00 Total Bilirubin 0.6 mg/dL (0.2-1) 11/14/19 07:00 AST 37 U/L (15-37) 11/14/19 07:00 ALT 33 U/L (13-61) 11/14/19 07:00 Alkaline Phosphatase 74 U/L (45-117) 11/14/19 07:00 Total Protein 6.0 g/dl (6.4-8.2) L 11/14/19 07:00 Albumin 3.3 g/dl (3.4-5.0) L 11/14/19 07:00 Syphilis Serology Non-reactive (NONREACTIVE) 11/13/19 07:00 COVID-19 (ANI) Not detected (Not Detected) 11/13/19 19:15 Labs noted. Pertinent Admission Physical Exam Findings: withdrawal symptoms. - Treatment Hospital Course: Detox Protocol Followed, Detoxed Safely, Responded well, Discharged Condition Good - Medication Discharge Medications: Ambulatory Orders Albuterol Sulfate Inhaler - [Ventolin HFA Inhaler -] 2 puff IH Q4H PRN #1 inhaler 09/07/17 Amlodipine Besylate [Norvasc -] 10 mg PO DAILY 30 Days #14 tablet 09/07/17 Quetiapine Fumarate [Seroquel -] 200 mg PO HS 12/16/17 Atenolol [Tenormin -] 50 mg PO DAILY 01/14/19 - Diagnosis (1) Alcohol dependence with uncomplicated withdrawal Status: Acute (2) Nicotine dependence Status: Chronic Qualifiers: Nicotine product type: cigarettes Substance use status: in withdrawal Qualified Code(s): F17.213 - Nicotine dependence, cigarettes, with withdrawal (3) Alcohol dependence Status: Chronic (4) GERD (gastroesophageal reflux disease) Status: Chronic Qualifiers: Esophagitis presence: esophagitis presence not specified Qualified Code(s): K21.9 - Gastro-esophageal reflux disease without esophagitis (5) HLD (hyperlipidemia) Status: Chronic Qualifiers: Hyperlipidemia type: unspecified Qualified Code(s): E78.5 - Hyperlipidemia, unspecified (6) HTN (hypertension) Status: Chronic Qualifiers: Hypertension type: essential hypertension Qualified Code(s): I10 - Essential (primary) hypertension - AMA Did Patient Leave Against Medical Advice: No
== END 2019-11-18 12:53 | disposition home or self-care (01) | DRG 897 ==
LOC: YASAS 15:53 → Y3N 19:44
PROVIDERS: ADMIT Allergy & Immunology; ATTEND Allergy & Immunology
PROC: HZ2ZZZZ Detoxification Services for Substance Abuse Treatment (ICD-10-PCS; principal; 2019-11-13)
DX: F10.230 Alcohol dependence with withdrawal, uncomplicated (principal); F14.20 Cocaine dependence, uncomplicated; F17.210 Nicotine dependence, cigarettes, uncomplicated; F25.0 Schizoaffective disorder, bipolar type; G47.00 Insomnia, unspecified; I10 Essential (primary) hypertension; J45.909 Unspecified asthma, uncomplicated; K21.9 Gastro-esophageal reflux disease without esophagitis; E78.5 Hyperlipidemia, unspecified; Z86.19 Personal history of other infectious and parasitic diseases; Z86.2 Personal history of diseases of the blood and blood-forming organs and certain disorders involving the immune mechanism; Z56.0 Unemployment, unspecified; Z91.018 Allergy to other foods
CPT/HCPCS: 36415; 80053; 82947; 82962; 83036; 85027; 86780; 93005; 93010; C9803; Q2036; U0003

== ENCOUNTER 2020-07-16 11:36 | Inpatient (IN) | payer OTHER ==
[2020-07-16 14:13] VITALS: BMI 27.5
[2020-07-16] MEDS ORDERED: MAGNESIUM HYDROX 2400MG/30ML ORAL SUSPENSION 30 ML CUP PO PRN (14:42)
[2020-07-16] MEDS ORDERED: ONDANSETRON *ODT* 4 MG TABLET SL PRN (14:42)
[2020-07-16] MEDS ORDERED: IBUPROFEN 400 MG TABLET (FP) PO PRN (14:42)
[2020-07-16] MEDS ORDERED: diazePAM 5 MG TABLET PO PRN (14:42)
[2020-07-16] MEDS ORDERED: BISMUTH SUBSALICYLATE 524 MG/30 ML PO PRN (14:42)
[2020-07-16] MEDS ORDERED: MENTHOL/PHENOL 1 EACH UD MM PRN (14:42)
[2020-07-16] MEDS ORDERED: ACETAMINOPHEN 325 MG TABLET (FP) PO PRN ×2 (14:42)
[2020-07-16] MEDS ORDERED: MAGNESIUM CITRATE 300 ML BOTTLE PO PRN (14:42)
[2020-07-16] MEDS ORDERED: METHOCARBAMOL 500 MG TABLET PO PRN (14:42)
[2020-07-16] MEDS ORDERED: MAG HYDROX/AL HYDROX/SIMETH 30 ML UNIT-DOSE CUP PO PRN (14:42)
[2020-07-16] MEDS ORDERED: ALBUTEROL SO4 HFA INHALER IH PRN (14:47)
[2020-07-16] MEDS: diazePAM 5 MG TABLET PO SCH ×2 (17:51→22:40)
[2020-07-16] MEDS: hydrOXYzine PAMOATE 25 MG CAPSULE (FP) PO SCH ×2 (17:52→22:39)
[2020-07-16] MEDS: PRENATAL VITAMINS W/ FOLIC ACID TABLET (FP) PO SCH (17:53)
[2020-07-16] MEDS: THIAMINE HCL 100 MG TABLET (FP) PO SCH (22:39)
[2020-07-16] MEDS: MELATONIN 5 MG TABLETS PO SCH (22:39)
[2020-07-17] MEDS: NICOTINE POLACRILEX 2 MG GUM BUC PRN ×3 (05:36→16:15)
[2020-07-17] MEDS: hydrOXYzine PAMOATE 25 MG CAPSULE (FP) PO SCH ×2 (05:37→10:08)
[2020-07-17] MEDS: diazePAM 5 MG TABLET PO SCH ×4 (05:38→22:46)
[2020-07-17] MEDS: PRENATAL VITAMINS W/ FOLIC ACID TABLET (FP) PO SCH (10:08)
[2020-07-17] MEDS ORDERED: hydrOXYzine PAMOATE 25 MG CAPSULE (FP) PO PRN (11:04)
[2020-07-17 14:56] LABS: HEMATOCRIT 35.7 % (35.4-49); HEMOGLOBIN 11.8 GM/dL (11.7-16.9); MEAN CELL VOLUME 72.6 fl (80-96); MEAN PLT VOLUME 7.4 fl (7.5-11.1); PLATELET COUNT 301 K/MM3 (134-434); RBC 4.92 M/mm3 (4.00-5.60); RDW 16.7 % (11.9-15.9); WHITE BLOOD COUNT 7.6 K/mm3 (4.0-10.0)
[2020-07-17 16:07] LABS: ALBUMIN 4.2 g/dl (3.4-5.0); BLOOD UREA NITROGEN 15.2 mg/dL (7-18)
[2020-07-17 16:10] LABS: CREATININE 0.9 mg/dL (0.55-1.3)
[2020-07-17 16:12] LABS: BILIRUBIN,TOTAL 0.8 mg/dL (0.2-1); TOT PROT 7.4 g/dl (6.4-8.2)
[2020-07-17] MEDS ORDERED: QUEtiapine FUMARATE 100 MG TABLET (FP) PO SCH (22:00)
[2020-07-17] MEDS: MELATONIN 5 MG TABLETS PO SCH (22:45)
[2020-07-17] MEDS: THIAMINE HCL 100 MG TABLET (FP) PO SCH (22:46)
[2020-07-18] MEDS: diazePAM 5 MG TABLET PO SCH ×2 (05:30→14:03)
[2020-07-18] MEDS: NICOTINE POLACRILEX 2 MG GUM BUC PRN ×2 (08:05→15:03)
[2020-07-18 09:17] VITALS: TEMP 96.9
[2020-07-18] MEDS: PRENATAL VITAMINS W/ FOLIC ACID TABLET (FP) PO SCH (09:50)
[2020-07-18] MEDS ORDERED: ATENOLOL 50 MG TABLET (FP) PO SCH (10:00)
[2020-07-18] MEDS ORDERED: amLODIPine BESYLATE 10 MG TABLET (FP) PO SCH (10:00)
[2020-07-18 18:08] VITALS: BP 136/92; PULSE 74
[2020-07-18] MEDS ORDERED: METHYL SALICYLATE/MENTHOL OINT 30 GM TUBE TP SCH (22:00)
[2020-07-19] MEDS ORDERED: diazePAM 5 MG TABLET PO SCH (06:00)
[2020-07-20] MEDS ORDERED: diazePAM 5 MG TABLET PO ONE (06:00)
== END 2020-07-18 17:29 | disposition left against medical advice (07) | DRG 894 ==
LOC: YASAS 11:36 → Y3N 16:25
PROVIDERS: ADMIT Allergy & Immunology; ATTEND Allergy & Immunology
PROC: HZ2ZZZZ Detoxification Services for Substance Abuse Treatment (ICD-10-PCS; principal; 2020-07-16)
DX: F10.230 Alcohol dependence with withdrawal, uncomplicated (principal); F14.20 Cocaine dependence, uncomplicated; F17.210 Nicotine dependence, cigarettes, uncomplicated; F25.0 Schizoaffective disorder, bipolar type; F19.24 Other psychoactive substance dependence with psychoactive substance-induced mood disorder; F31.9 Bipolar disorder, unspecified; D64.9 Anemia, unspecified; I10 Essential (primary) hypertension; E78.5 Hyperlipidemia, unspecified; J45.909 Unspecified asthma, uncomplicated; Z86.19 Personal history of other infectious and parasitic diseases
CPT/HCPCS: 36415; 80053; 85027; 86780; C9803; U0003; U0005

== ENCOUNTER 2021-02-23 11:13 | Inpatient (IN) | payer MEDICARE, OTHER ==
[2021-02-23 12:17] VITALS: BMI 29.5
[2021-02-23] MEDS ORDERED: ONDANSETRON *ODT* 4 MG TABLET SL PRN (13:04)
[2021-02-23] MEDS ORDERED: chlordiazePOXIDE HCL 25 MG CAPSULE PO PRN (13:04)
[2021-02-23] MEDS ORDERED: MAGNESIUM HYDROX 2400MG/30ML ORAL SUSPENSION 30 ML CUP PO PRN (13:04)
[2021-02-23] MEDS ORDERED: MAG HYDROX/AL HYDROX/SIMETH 30 ML UNIT-DOSE CUP PO PRN (13:04)
[2021-02-23] MEDS ORDERED: ACETAMINOPHEN 325 MG TABLET (FP) PO PRN ×2 (13:04)
[2021-02-23] MEDS ORDERED: IBUPROFEN 400 MG TABLET (FP) PO PRN (13:04)
[2021-02-23] MEDS ORDERED: BISMUTH SUBSALICYLATE 262 MG/15 ML BTL PO PRN (13:04)
[2021-02-23] MEDS ORDERED: NICOTINE 10 MG CARTRIDGE (INHALER) IH PRN (13:04)
[2021-02-23] MEDS ORDERED: MAGNESIUM CITRATE 300 ML BOTTLE PO PRN (13:04)
[2021-02-23] MEDS ORDERED: MENTHOL/PHENOL 1 EACH UD MM PRN (13:04)
[2021-02-23] MEDS ORDERED: METHOCARBAMOL 500 MG TABLET PO PRN (13:04)
[2021-02-23] MEDS ORDERED: ALBUTEROL SO4 HFA INHALER IH PRN (13:09)
[2021-02-23] MEDS: ASPIRIN 81 MG CHEWABLE TABLETS PO SCH (14:14)
[2021-02-23] MEDS: amLODIPine BESYLATE 10 MG TABLET (FP) PO SCH (14:14)
[2021-02-23] MEDS: NICOTINE POLACRILEX 2 MG GUM BUC PRN ×2 (14:15→18:19)
[2021-02-23] MEDS: hydrOXYzine PAMOATE 25 MG CAPSULE (FP) PO SCH ×3 (14:16→22:55)
[2021-02-23] MEDS: chlordiazePOXIDE HCL 25 MG CAPSULE PO SCH (18:17)
[2021-02-23] MEDS: MELATONIN 5 MG TABLETS PO SCH (22:55)
[2021-02-23] MEDS: THIAMINE HCL 100 MG TABLET (FP) PO SCH (22:55)
[2021-02-24] MEDS: hydrOXYzine PAMOATE 25 MG CAPSULE (FP) PO SCH ×5 (05:19→22:10)
[2021-02-24] MEDS: NICOTINE POLACRILEX 2 MG GUM BUC PRN ×5 (05:19→22:12)
[2021-02-24] MEDS: chlordiazePOXIDE HCL 25 MG CAPSULE PO SCH ×5 (05:20→22:11)
[2021-02-24] MEDS: ASPIRIN 81 MG CHEWABLE TABLETS PO SCH (10:16)
[2021-02-24] MEDS: PRENATAL VITAMINS W/ FOLIC ACID TABLET (FP) PO SCH (10:16)
[2021-02-24] MEDS: amLODIPine BESYLATE 10 MG TABLET (FP) PO SCH (10:16)
[2021-02-24] MEDS: OLANZapine 10 MG TABLET PO SCH (22:10)
[2021-02-24] MEDS: MELATONIN 5 MG TABLETS PO SCH (22:10)
[2021-02-24] MEDS: THIAMINE HCL 100 MG TABLET (FP) PO SCH (22:10)
[2021-02-25] MEDS: chlordiazePOXIDE HCL 25 MG CAPSULE PO SCH ×5 (06:01→22:39)
[2021-02-25] MEDS: hydrOXYzine PAMOATE 25 MG CAPSULE (FP) PO SCH ×5 (06:02→22:39)
[2021-02-25] MEDS: NICOTINE POLACRILEX 2 MG GUM BUC PRN ×5 (06:03→22:41)
[2021-02-25] MEDS: ASPIRIN 81 MG CHEWABLE TABLETS PO SCH (10:16)
[2021-02-25] MEDS: PRENATAL VITAMINS W/ FOLIC ACID TABLET (FP) PO SCH (10:16)
[2021-02-25] MEDS: amLODIPine BESYLATE 10 MG TABLET (FP) PO SCH (10:17)
[2021-02-25 13:30] LABS: HEMATOCRIT 36.2 % (35.4-49); HEMOGLOBIN 11.6 GM/dL (11.7-16.9); MCH 23.7 pg (25.7-33.7); MCHC 32.2 g/dl (32.0-35.9); MEAN CELL VOLUME 73.5 fl (80-96); MEAN PLT VOLUME 7.2 fl (7.5-11.1); PLATELET COUNT 266 10^3/uL (134-434); RBC 4.92 M/mm3 (4.00-5.60); RDW 16.9 % (11.9-15.9); WHITE BLOOD COUNT 6.1 K/mm3 (4.0-10.0)
[2021-02-25 13:35] LABS: ALBUMIN 3.7 g/dl (3.4-5.0); BLOOD UREA NITROGEN 13.6 mg/dL (7-18)
[2021-02-25 13:38] LABS: CREATININE 0.9 mg/dL (0.55-1.3)
[2021-02-25 13:40] LABS: BILIRUBIN,TOTAL 0.4 mg/dL (0.2-1); TOT PROT 6.5 g/dl (6.4-8.2)
[2021-02-25] MEDS: OLANZapine 10 MG TABLET PO SCH (22:39)
[2021-02-25] MEDS: MELATONIN 5 MG TABLETS PO SCH (22:39)
[2021-02-25] MEDS: THIAMINE HCL 100 MG TABLET (FP) PO SCH (22:39)
[2021-02-26] MEDS ORDERED: chlordiazePOXIDE HCL 10 MG CAPSULE PO PRN
[2021-02-26] MEDS: chlordiazePOXIDE HCL 10 MG CAPSULE PO SCH ×4 (05:50→22:14)
[2021-02-26] MEDS: NICOTINE POLACRILEX 2 MG GUM BUC PRN ×4 (05:50→20:53)
[2021-02-26] MEDS: hydrOXYzine PAMOATE 25 MG CAPSULE (FP) PO SCH ×6 (05:51→22:14)
[2021-02-26] MEDS: amLODIPine BESYLATE 10 MG TABLET (FP) PO SCH (10:14)
[2021-02-26] MEDS: PRENATAL VITAMINS W/ FOLIC ACID TABLET (FP) PO SCH (10:14)
[2021-02-26] MEDS: ASPIRIN 81 MG CHEWABLE TABLETS PO SCH (10:14)
[2021-02-26] MEDS: OLANZapine 10 MG TABLET PO SCH (22:13)
[2021-02-26] MEDS: MELATONIN 5 MG TABLETS PO SCH (22:14)
[2021-02-26] MEDS: THIAMINE HCL 100 MG TABLET (FP) PO SCH (22:14)
[2021-02-27] MEDS: NICOTINE POLACRILEX 2 MG GUM BUC PRN ×2 (04:42→07:08)
[2021-02-27] MEDS ORDERED: chlordiazePOXIDE HCL 10 MG CAPSULE PO SCH (05:00)
[2021-02-27] MEDS: hydrOXYzine PAMOATE 25 MG CAPSULE (FP) PO SCH (06:04)
[2021-02-27 09:32] VITALS: BP 152/89; PULSE 100; TEMP 97.1
[2021-02-28] MEDS ORDERED: chlordiazePOXIDE HCL 10 MG CAPSULE PO ONE (05:00)
== END 2021-02-27 09:44 | disposition home or self-care (01) | DRG 897 ==
LOC: YASAS 11:13 → Y3N 13:02
PROVIDERS: ADMIT Allergy & Immunology; ATTEND Allergy & Immunology
PROC: HZ2ZZZZ Detoxification Services for Substance Abuse Treatment (ICD-10-PCS; principal; 2021-02-23)
DX: F10.230 Alcohol dependence with withdrawal, uncomplicated (principal); F14.20 Cocaine dependence, uncomplicated; F17.210 Nicotine dependence, cigarettes, uncomplicated; F31.9 Bipolar disorder, unspecified; F25.0 Schizoaffective disorder, bipolar type; F19.24 Other psychoactive substance dependence with psychoactive substance-induced mood disorder; D64.9 Anemia, unspecified; E78.5 Hyperlipidemia, unspecified; I10 Essential (primary) hypertension; K21.9 Gastro-esophageal reflux disease without esophagitis; R73.9 Hyperglycemia, unspecified; Z86.19 Personal history of other infectious and parasitic diseases; Z56.0 Unemployment, unspecified; Z91.018 Allergy to other foods
CPT/HCPCS: 36415; 80053; 85027; 86780; C9803; U0003; U0005